=== PATIENT | male | born 1935 | race Caucasian/White ===

== ENCOUNTER 2016-12-25 15:44 | Emergency (ER) | payer OTHER ==
[~2016-12-25 15:44] MED LIST: DIAZ2TAB PO; FEXO1TAB46 PO; FINA5TAB PO; MELO7.5T5 PO
[2016-12-25 16:03] VITALS: TEMP 37.7
[2016-12-25] MEDS ORDERED: SODIUM CHLORIDE 0.9% 1000ML 1,000 ML IV STA (16:09)
[2016-12-25] MEDS ORDERED: OPTIRAY 320 IV PRN (16:15)
--- NOTE | 2016-12-25 16:16 | EMERGENCY ROOM VISIT NOTE ---
History Report prepared by Molly: Albert Fuentes Under the Supervision of: Dr. Hung Suresh M.D. First contact with patient: 15:51 Stated Complaint: STOKE SYMPTOMS @0800 / MHID History of Present Illness The patient is a 81 year old white male with a past medical history of MR and non-verbal at baseline, seizures, STEMI and BPH who presents to the ED with a cc of constant lethargy beginning last evening. The patient's history was obtained from his caregiver. Last time the patient ate was 24 hours ago. Received his flu shot yesterday. Patient walks at baseline. Positive abdominal pain, tongue hanging out, twisted bowel with difficulty moving his bowels, decreased appetite. Negative recent exposure, coughing, vomiting. Source of History: caregiver Onset: last evening Position: other (global) Quality: other (lethargy) Timing: constant Associated Symptoms: + abdominal pain, No cough, No vomiting Note: Associated symptoms: tongue hanging out, twisted bowel with difficulty moving his bowels, decreased appetite Denies: recent exposure Review of Systems See HPI for pertinent positives and negatives. A total of ten systems were reviewed and were otherwise negative. Past Medical & Surgical Medical Problems: (1) BPH (benign prostatic hyperplasia) (2) cataract surgery (3) left hernia repair (4) Mental retardation (5) Seizure (6) STEMI (ST elevation myocardial infarction) (7) urinary problems Family History Diabetes mellitus Hypertension Social History Smoking Status: Never Smoker Alcohol Use: none Drug Use: none Marital Status: single Housing Status: assisted living Occupation Status: disabled Current/Historical Medications Scheduled Amoxicillin & Pot Clavulanate (Augmentin 875-125 mg), 875 MG PO BID Amoxicillin/Clavulanate Potas (Augmentin), 17.5 ML PO BID Azithromycin (Zithromax), 250 MG PO DAILY Azithromycin (Azithromycin), 6.25 ML PO QD Carbamide Peroxide (Otic) (Debrox), 5 DROPS OT BID Diazepam (Valium), 2 MG PO BID Finasteride (Proscar), 5 MG PO DAILY Meloxicam (Mobic), 7.5 MG PO BID Metronidazole (Topical) (Metrogel), 1 DOSE TOP HS Nystatin (Topical) (Nystatin), 1 DOSE TOP BID Scheduled PRN Fexofenadine Hcl (Brittany), 180 MG PO DAILY PRN for RHINITIS Allergies Coded Allergies: No Known Allergies (Verified , 12/25/16) Physical Exam Vital Signs Date Time Temp Pulse Resp B/P (MAP) Pulse Ox O2 Delivery O2 Flow Rate FiO2 12/25/16 23:43 99 123/66 97 12/25/16 21:49 97 12/25/16 20:59 105 20 124/62 98 Room Air 12/25/16 19:12 101 19 123/56 98 Room Air 12/25/16 16:24 88 12/25/16 16:03 37.7 98 14 110/59 98 Room Air Physical Exam GENERAL: Awake, alert, well-appearing, NAD HENT: Normocephalic, atraumatic. EYES: Normal conjunctiva. Sclera non-icteric. NECK: Supple. No nuchal rigidity. FROM. RESPIRATORY: CTAB, no rhonchi, wheezing, crackles CARDIAC: RRR, no MRG ABDOMEN: Soft, Mild diffuse abdominal pain, ND, BS+ MSK: No chest wall TTP, no LE edema NEURO: GCS 11, eyes are open, moves all 4s on command, non-verbal at baseline SKIN: No rash or jaundice noted. Medical Decision & Procedures ER Provider Diagnostic Interpretation: Radiology results as stated below per my review and radiologist interpretation: HEAD CT NONCONTRAST CT DOSE: 1996.36 mGy.cm HISTORY: ?decreased activity, h/o MR TECHNIQUE: Multiaxial CT images of the head were performed without the use of intravenous contrast. Automated exposure control was utilized for this study. A dose lowering technique was utilized adhering to the principles of ALARA. Comparison: Head CT 01/31/2016. Findings: Mild mucosal thickening within the right anterior ethmoid air cells. The mastoid air cells are clear. The calvarium and skull base are intact. There is no mass, hematoma, midline shift, acute infarct. White matter hypodensity is nonspecific but suggestive of microvascular ischemic change. The ventricles and sulci demonstrate mild age-related involutional changes. Bilateral basal ganglia calcifications are again noted. Impression: No significant change compared to the prior study. No acute intracranial abnormality. Motion artifact. Electronically signed by: Charbel Dillon M.D. 12/25/2016 7:48 PM Dictated Date/Time: 12/25/2016 7:45 PM ABDOMEN 2VIEW W/PA CHEST RTN HISTORY: 81 years-old Male ABDOMINAL PAIN/GI acute generalized abdominal pain with altered mental status COMPARISON: Chest radiograph 06/14/2014 TECHNIQUE: AP view of the chest with left decubitus and supine views of the abdomen. FINDINGS: Study is limited secondary to patient positioning. Portion of the right lung apex is obscured by the patient's chin. Cardiac silhouette is mildly enlarged, unchanged. Atherosclerosis of the aorta. Patient is rotated to the right. No pneumothorax, pleural effusion or overt pulmonary edema. Mild coronary vascular congestion. Ill-defined hazy opacity of the lateral right lung base suggests airspace disease. Multiple remote rib fractures are seen on the right. Bowel gas pattern appears to be nonobstructive. No definite pneumoperitoneum. IMPRESSION: 1. Limited study secondary to patient positioning. 2. Ill-defined opacities of the lateral right lung base suspicious for pneumonia or atelectasis. 3. Nonobstructive bowel gas pattern without pneumoperitoneum. The above report was generated using voice recognition software. It may contain grammatical, syntax or spelling errors. Electronically signed by: Alejandro Davila M.D. 12/25/2016 6:31 PM Dictated Date/Time: 12/25/2016 6:27 PM ABDOMEN AND PELVIS CT WITH IV CONTRAST CT DOSE: 329.18 mGy.cm HISTORY: Generalized abdominal pain. TECHNIQUE: Multiaxial CT images of the abdomen and pelvis were performed following the use of intravenous contrast. A dose lowering technique was utilized adhering to the principles of ALARA. COMPARISON STUDY: None. FINDINGS: Mild motion artifact. The lung bases are clear. No pneumoperitoneum. No pneumatosis. Moderate thickening of the distal esophagus. A 1.2 cm hypodense lesion within the left hepatic lobe and a 7 mm hypodense lesion within the right hepatic lobe. There is also a 12 mm partially enhancing lesion within the right hepatic lobe. These are technically indeterminate on this single phase study but may represent hemangiomas. Cholecystectomy. The spleen, kidneys, and adrenal glands are unremarkable. The pancreas enhances normally. No retroperitoneal lymphadenopathy. Mild calcified plaque within the normal caliber abdominal aorta. The bladder is unremarkable. Colonic diverticulosis. No definite bowel wall thickening or obstruction. Postoperative changes within the right inguinal region suggests a prior inguinal hernia repair. The appendix is not identified. IMPRESSION: 1. Mild motion artifact. 2. No definite bowel wall thickening or obstruction. 3. No hydronephrosis. 4. Colonic diverticulosis. 5. The appendix is not identified with certainty and may be surgically absent. 6. Cholecystectomy. 7. A few hepatic lesions which are technically indeterminate but favor hemangiomas. Electronically signed by: Charbel Dillon M.D. 12/25/2016 7:56 PM Dictated Date/Time: 12/25/2016 7:48 PM Laboratory Results 12/25/16 16:48 Red Blood Count 4.01, Mean Corpuscular Volume 94.3, Mean Corpuscular Hemoglobin 31.2, Mean Corpuscular Hemoglobin Concent 33.1, Mean Platelet Volume 11.4, Neutrophils (%) (Auto) 80.8, Lymphocytes (%) (Auto) 9.5, Monocytes (%) (Auto) 9.1, Eosinophils (%) (Auto) 0.1, Basophils (%) (Auto) 0.1, Neutrophils # (Auto) 8.27, Lymphocytes # (Auto) 0.97, Monocytes # (Auto) 0.93, Eosinophils # (Auto) 0.01, Basophils # (Auto) 0.01 12/25/16 16:48 Test 12/25/16 16:48 12/25/16 17:05 White Blood Count 10.23 K/uL (4.8-10.8) Red Blood Count 4.01 M/uL (4.7-6.1) Hemoglobin 12.5 g/dL (14.0-18.0) Hematocrit 37.8 % (42-52) Mean Corpuscular Volume 94.3 fL (80-100) Mean Corpuscular Hemoglobin 31.2 pg (25-34) Mean Corpuscular Hemoglobin Concent 33.1 g/dl (32-36) Platelet Count 100 K/uL (130-400) Mean Platelet Volume 11.4 fL (7.4-10.4) Neutrophils (%) (Auto) 80.8 % Lymphocytes (%) (Auto) 9.5 % Monocytes (%) (Auto) 9.1 % Eosinophils (%) (Auto) 0.1 % Basophils (%) (Auto) 0.1 % Neutrophils # (Auto) 8.27 K/uL (1.4-6.5) Lymphocytes # (Auto) 0.97 K/uL (1.2-3.4) Monocytes # (Auto) 0.93 K/uL (0.11-0.59) Eosinophils # (Auto) 0.01 K/uL (0-0.5) Basophils # (Auto) 0.01 K/uL (0-0.2) RDW Standard Deviation 47.4 fL (36.4-46.3) RDW Coefficient of Variation 13.7 % (11.5-14.5) Immature Granulocyte % (Auto) 0.4 % Immature Granulocyte # (Auto) 0.04 K/uL (0.00-0.02) Anion Gap 8.0 mmol/L (3-11) Estimated GFR () 105.3 Estimated GFR (Non- 90.8 BUN/Creatinine Ratio 32.6 (10-20) Calcium Level 8.2 mg/dl (8.5-10.1) Total Bilirubin 1.1 mg/dl (0.2-1) Direct Bilirubin 0.2 mg/dl (0-0.2) Aspartate Amino Transf (AST/SGOT) 21 U/L (15-37) Alanine Aminotransferase (ALT/SGPT) 21 U/L (12-78) Alkaline Phosphatase 71 U/L (45-117) Total Protein 6.6 gm/dl (6.4-8.2) Albumin 3.2 gm/dl (3.4-5.0) Lipase 103 U/L (73-393) Urine Color DK YELLOW Urine Appearance CLEAR (CLEAR) Urine pH 5.5 (4.5-7.5) Urine Specific H[place]ley 1.026 (1.000-1.030) Urine Protein NEG (NEG) Urine Glucose (UA) NEG (NEG) Urine Ketones 3+ (NEG) Urine Occult Blood NEG (NEG) Urine Nitrite NEG (NEG) Urine Bilirubin NEG (NEG) Urine Urobilinogen NEG (NEG) Urine Leukocyte Esterase NEG (NEG) Urine WBC (Auto) 0 /hpf (0-5) Urine RBC (Auto) 0-4 /hpf (0-4) Urine Hyaline Casts (Auto) 1-5 /lpf (0-5) Urine Epithelial Cells (Auto) 5-10 /lpf (0-5) Urine Bacteria (Auto) NEG (NEG) Laboratory results reviewed by me Medications Administered Medications (Trade) Dose Ordered Sig/Ilia Route Start Time Stop Time Status Last Admin Dose Admin Sodium Chloride 1,000 ml @ 999 mls/hr Q1H1M STAT IV 12/25/16 16:09 12/25/16 17:09 DC 12/25/16 17:14 999 MLS/HR Ceftriaxone Sodium (Rocephin Inj) 1 gm NOW STAT IV 12/25/16 19:00 12/25/16 19:01 DC 12/25/16 19:09 1 GM Lactated Ringer's 1,000 ml @ 999 mls/hr Q1H1M STAT IV 12/25/16 21:09 12/25/16 22:09 DC 12/25/16 21:18 999 MLS/HR Azithromycin (Zithromax Tab) 500 mg NOW ONCE PO 12/25/16 21:30 12/25/16 21:31 DC 12/25/16 21:26 500 MG ED Course 1600: The patient was evaluated in room C03. A complete history and physical exam was performed. 2106: I reevaluated the patient. Discussed results and discharge instructions: the patient's caregiver verbalized understanding and agreement. The patient is ready for discharge when he receives more fluids. Medical Decision The patient is a 81 year old white male with a past medical history of MR and non-verbal at baseline, seizures, STEMI and BPH who presents to the ED with a cc of constant lethargy beginning last evening. Differential diagnoses include: metabolic, infection, hypo/hyperglycemia, electrolyte abnormalities, cardiac sources, intracerebral event, toxicologic, neurologic, abdominal pain as well as others were entertained. Patient was seen and evaluated the bedside. The branch library clerk who is with him a fair amount was concerned as he has not been as active. Patient normally eats and drinks without issue and walks. Patient is more less nonverbal but will speak words occasionally. On exam patient is a GCS of 11 and is able to move all his extremities and has no focal neuro deficit. Patient did have blood work , CT head, CT abdomen and pelvis, and plain films completed. Patient was also given fluids. Patient's chest x-ray additional questions or consolidations at the base for which she was given Rocephin. Patient white blood seen cell count of 10. Patient does have some prerenal azotemia. Patient was given fluids. I did discuss the results with the patient's caregiver. She had stated that the patient is doing much much better. Patient's tachycardia is improved. He was given additional IVF. Patient had no signs of infection is UA. Patient's CT head negative. Patient's CT the abdomen pelvis is negative acute. He did have some questionable angiomas of the liver but no other issues. Patient was able tolerate by mouth at the bedside. Given the patient has very good care at home believe the patient is suitable for outpatient treatment. Patient's tachycardia resolved. Patient does not have a very high white count. Patient does not have a surgical abdomen or surgical process within the abdomen. Patient was given antibiotics for home. All questions were answered. Patient was given strict follow-up, discharge, and return precautions. All questions were answered. Patient was deemed suitable for outpatient follow-up at this time. Patient agreed with the plan of care and was safely discharged home. Head Trauma GCS Score: 11 Medication Reconcilliation Current Medication List: was personally reviewed by me Blood Pressure Screening Patient's blood pressure: Normal blood pressure Blood pressure disposition: Did not require urgent referral Impression Primary Impression: Pneumonia Additional Impression: Generalized weakness Scribe Attestation The scribe's documentation has been prepared under my direction and personally reviewed by me in its entirety. I confirm that the note above accurately reflects all work, treatment, procedures, and medical decision making performed by me. Departure Information Dispostion Home / Self-Care Prescriptions Amoxicillin/Clavulanate Potas (AUGMENTIN) 250 Mg/5 Ml Susp 17.5 ML PO BID for 7 Days, #245 ML Prov: Hung Suresh M.D. 12/25/16 Azithromycin (Azithromycin) 100 Mg/2.5 Ml Susp 6.25 ML PO QD for 4 Days, #1 BTL Prov: Hung Suresh M.D. 12/25/16 Azithromycin (Zithromax) 250 Mg Tab 250 MG PO DAILY for 4 Days, #4 TAB Prov: Hung Suresh M.D. 12/25/16 Amoxicillin & Pot Clavulanate (Augmentin 875-125 mg) 1 Tab Tab 875 MG PO BID for 7 Days, TAB Prov: Hung Suresh M.D. 12/25/16 Referrals Malik Griffin M.D. (PCP) Forms HOME CARE DOCUMENTATION FORM, IMPORTANT VISIT INFORMATION, WORK / SCHOOL INSTRUCTIONS Patient Instructions ED Pneumonia Adult, My [facility] Additional Instructions Please return to the emergency department if you have worsening or recurrent symptoms not amenable to at-home treatment. Please call for a follow-up appointment with her primary care physician. Please take your medications as prescribed. If you have other concerns and/or complaints please feel free to also call your primary care physician's office or return the ED for further evaluation, management, and treatment. You were found to have an elevated blood pressure today (>120 sytolic or >90 diastolic). Per medicare guidelines, you need to follow up with this blood pressure screening with your Primary Care Physician (PCP). For a new PCP call [phone]. You received narcotic or benzodiazepene medication while in the emergency room today. This is an addictive medication that may cause drowziness as well as constipation. Do not drive, operate heavy machinery, or drink alcohol under the influence of this medication. You may take 600 mg Ibuprofen every 6 hours as needed for pain with food for no more than 2 consecutive days. You may take tylenol 1000 mg every 6 hours as needed for pain. You may take motrin and tylenol separately or at the same time. Take your medications as prescribed. If taking an antibiotic consider taking a probiotic and/or eating yogurt, but at the least, please take with food as it can cause upset stomach. If culture results are not available at discharge, if they are positive for concern of infection, you will be informed of the results as soon as they are available. If you were seen between 11pm and 7AM all radiology reads will be re-read by our in house staff. If any major discrepancies are discovered, you will be notified. You have been examined and treated today on an emergency basis only. This is not a substitute for, or an effort to provide, complete comprehensive medical care. It is impossible to recognize and treat all injuries or illnesses in a single emergency department visit. It is therefore important that you follow up closely with [facility], your PCP, and/or your specialist(s). Call as soon as possible for an appointment. Thank you for your time and consideration. I look forward to speaking with you again soon. Please don't hesitate to call us if you have any questions. Problem Qualifiers Primary Impression: Pneumonia Pneumonia type: due to unspecified organism Laterality: right Lung location : lower lobe of lung Qualified Codes: J18.1 - Lobar pneumonia, unspecified organism
[2016-12-25] MEDS ORDERED: NYST100033 TOP (16:41)
[2016-12-25] MEDS ORDERED: CARB1SOL8 OT (16:41)
[2016-12-25] MEDS ORDERED: METR0.7527 TOP (16:42)
[2016-12-25 17:27] LABS: URINE APPEARANCE CLEAR (CLEAR); URINE COLOR DK YELLOW; URINE NITRITE NEG (NEG); URINE PH 5.5 (4.5-7.5); URINE SPECIFIC GRAVITY 1.026 (1.000-1.030); UROBILINOGEN NEG (NEG); ZZURINE CULT IF INDIC CATH NO
[2016-12-25 17:31] LABS: MANUAL MICROSCOPIC REQUIRED? NO; REVIEW REQ? NO; URINE BILIRUBIN NEG (NEG)
[2016-12-25 17:39] LABS: BASO % 0.1 %; BASO ABS # 0.01 K/uL (0-0.2); COMPLETE YES; EOS % 0.1 %; HEMATOCRIT 37.8 % (42-52); IG% 0.4 %; LYMPH % 9.5 %; LYMPH ABS # 0.97 K/uL (1.2-3.4); MEAN CELL VOLUME 94.3 fL (80-100); MEAN CORPUSCULAR HEMOGLOBIN 31.2 pg (25-34); MEAN CORPUSCULAR HGB CONC 33.1 g/dl (32-36); MEAN PLATELET VOLUME 11.4 fL (7.4-10.4); MONO % 9.1 %; NEUT % 80.8 %; PLATELET COUNT 100 K/uL (130-400); RED BLOOD COUNT 4.01 M/uL (4.7-6.1); WHITE BLOOD COUNT 10.23 K/uL (4.8-10.8)
[2016-12-25 17:43] LABS: ALT/SGPT 21 U/L (12-78); AST/SGOT 21 U/L (15-37); BLOOD UREA NITROGEN 22 mg/dl (7-18); BUN/CREATININE RATIO 32.6 (10-20); CALCIUM 8.2 mg/dl (8.5-10.1); CARBON DIOXIDE 27 mmol/L (21-32); CHLORIDE 105 mmol/L (98-107); CREATININE 0.68 mg/dl (0.60-1.40); GLUCOSE 100 mg/dl (70-99); POTASSIUM 3.9 mmol/L (3.5-5.1); SODIUM 140 mmol/L (136-145)
[2016-12-25 17:46] LABS: ALKALINE PHOSPHATASE 71 U/L (45-117)
--- NOTE | 2016-12-25 18:33 | DIAGNOSTIC IMAGING REPORT ---
ABDOMEN 2VIEW W/PA CHEST RTN HISTORY: 81 years-old Male ABDOMINAL PAIN/GI acute generalized abdominal pain with altered mental status COMPARISON: Chest radiograph 06/14/2014 TECHNIQUE: AP view of the chest with left decubitus and supine views of the abdomen. FINDINGS: Study is limited secondary to patient positioning. Portion of the right lung apex is obscured by the patient's chin. Cardiac silhouette is mildly enlarged, unchanged. Atherosclerosis of the aorta. Patient is rotated to the right. No pneumothorax, pleural effusion or overt pulmonary edema. Mild coronary vascular congestion. Ill-defined hazy opacity of the lateral right lung base suggests airspace disease. Multiple remote rib fractures are seen on the right. Bowel gas pattern appears to be nonobstructive. No definite pneumoperitoneum. IMPRESSION: 1. Limited study secondary to patient positioning. 2. Ill-defined opacities of the lateral right lung base suspicious for pneumonia or atelectasis. 3. Nonobstructive bowel gas pattern without pneumoperitoneum. The above report was generated using voice recognition software. It may contain grammatical, syntax or spelling errors. Electronically signed by: Alejandro Davila M.D. 12/25/2016 6:31 PM Dictated Date/Time: 12/25/2016 6:27 PM
[2016-12-25] MEDS ORDERED: CEFTRIAXONE SOD INJ 1 GM ADDVIAL IV STA (19:00)
--- NOTE | 2016-12-25 19:49 | DIAGNOSTIC IMAGING REPORT ---
HEAD CT NONCONTRAST CT DOSE: 1996.36 mGy.cm HISTORY: ?decreased activity, h/o MR TECHNIQUE: Multiaxial CT images of the head were performed without the use of intravenous contrast. Automated exposure control was utilized for this study. A dose lowering technique was utilized adhering to the principles of ALARA. Comparison: Head CT 01/31/2016. Findings: Mild mucosal thickening within the right anterior ethmoid air cells. The mastoid air cells are clear. The calvarium and skull base are intact. There is no mass, hematoma, midline shift, acute infarct. White matter hypodensity is nonspecific but suggestive of microvascular ischemic change. The ventricles and sulci demonstrate mild age-related involutional changes. Bilateral basal ganglia calcifications are again noted. Impression: No significant change compared to the prior study. No acute intracranial abnormality. Motion artifact. Electronically signed by: Charbel Dillon M.D. 12/25/2016 7:48 PM Dictated Date/Time: 12/25/2016 7:45 PM
--- NOTE | 2016-12-25 19:57 | DIAGNOSTIC IMAGING REPORT ---
ABDOMEN AND PELVIS CT WITH IV CONTRAST CT DOSE: 329.18 mGy.cm HISTORY: Generalized abdominal pain. TECHNIQUE: Multiaxial CT images of the abdomen and pelvis were performed following the use of intravenous contrast. A dose lowering technique was utilized adhering to the principles of ALARA. COMPARISON STUDY: None. FINDINGS: Mild motion artifact. The lung bases are clear. No pneumoperitoneum. No pneumatosis. Moderate thickening of the distal esophagus. A 1.2 cm hypodense lesion within the left hepatic lobe and a 7 mm hypodense lesion within the right hepatic lobe. There is also a 12 mm partially enhancing lesion within the right hepatic lobe. These are technically indeterminate on this single phase study but may represent hemangiomas. Cholecystectomy. The spleen, kidneys, and adrenal glands are unremarkable. The pancreas enhances normally. No retroperitoneal lymphadenopathy. Mild calcified plaque within the normal caliber abdominal aorta. The bladder is unremarkable. Colonic diverticulosis. No definite bowel wall thickening or obstruction. Postoperative changes within the right inguinal region suggests a prior inguinal hernia repair. The appendix is not identified. IMPRESSION: 1. Mild motion artifact. 2. No definite bowel wall thickening or obstruction. 3. No hydronephrosis. 4. Colonic diverticulosis. 5. The appendix is not identified with certainty and may be surgically absent. 6. Cholecystectomy. 7. A few hepatic lesions which are technically indeterminate but favor hemangiomas. Electronically signed by: Charbel Dillon M.D. 12/25/2016 7:56 PM Dictated Date/Time: 12/25/2016 7:48 PM
[2016-12-25] MEDS ORDERED: LACTATED RINGER'S 1000ML 1,000 ML IV STA (21:09)
[2016-12-25] MEDS ORDERED: AZIT250T PO (21:18)
[2016-12-25] MEDS ORDERED: AMOX875T PO (21:18)
[2016-12-25] MEDS ORDERED: AZITHROMYCIN 250 MG TAB PO ONE (21:30)
[2016-12-25] MEDS ORDERED: [UNRECOGNIZED DRUG - CODE] PO (22:24)
[2016-12-25] MEDS ORDERED: AMOX1SUS74 PO (22:24)
[2016-12-25 23:43] VITALS: BP 123/66; PULSE 99; O2SAT 97
== END 2016-12-25 23:44 | disposition home or self-care (01) ==
LOC: EDBD 15:44 → C.EDC 15:45
DX: J18.1 Lobar pneumonia, unspecified organism (principal); R53.1 Weakness; F79 Unspecified intellectual disabilities; G40.909 Epilepsy, unspecified, not intractable, without status epilepticus; N40.0 Benign prostatic hyperplasia without lower urinary tract symptoms; R00.0 Tachycardia, unspecified; R79.89 Other specified abnormal findings of blood chemistry; I25.2 Old myocardial infarction; Z83.3 Family history of diabetes mellitus; Z82.49 Family history of ischemic heart disease and other diseases of the circulatory system

== ENCOUNTER 2016-12-27 16:41 | Emergency (ER) | payer OTHER ==
[~2016-12-27] VITALS: Ht 152.4 cm; Wt 48.8 kg
[~2016-12-27 16:41] MED LIST changes: +AMOX1SUS74 PO; +AMOX875T PO; +AZIT250T PO; +CARB1SOL8 OT; +METR0.7527 TOP; +NYST100033 TOP; +[UNRECOGNIZED DRUG - CODE] PO
[2016-12-27 16:58] VITALS: TEMP 36.7; Ht 152.4 cm; Wt 48.8 kg
--- NOTE | 2016-12-27 17:00 | EMERGENCY ROOM VISIT NOTE ---
History Report prepared by Molly: Francisco Murcia Under the Supervision of: Dr. Main Ingram M.D. First contact with patient: 16:44 Chief Complaint: FALL Stated Complaint: FALL, EYE ABRASION History of Present Illness The patient is a 81 year old male who presents to the Emergency Room for evaluation s/p fall occurring just prior to arrival. He is a resident at [facility]. Per nursing staff, the patient had an unwitnessed fall just prior to arrival. Caregivers heard the fall and found the patient laying on the ground. He appears to have hit his head with the fall. The patient is not on any blood thinners. Per caregiver, the patient hit his face on the floor during the fall. He states that the patient is on Amoxicillin and Zithromax for pneumonia diagnosed 2 days ago. He states that the patient did not seem to lose consciousness, and stood up on his own following the fall. HPI limited secondary to mental state. Tetanus status is current. Source of History: nursing staff History Limited By: other (mental state) Onset: Just prior to arrival Quality: other (fall) Timing: other (episode) Associated Symptoms: No LOC Review of Systems ROS limited secondary to mental state. Past Medical & Surgical Medical Problems: (1) BPH (benign prostatic hyperplasia) (2) cataract surgery (3) left hernia repair (4) Mental retardation (5) Seizure (6) STEMI (ST elevation myocardial infarction) (7) urinary problems Family History Diabetes mellitus Hypertension Social History Smoking Status: Never Smoker Alcohol Use: none Drug Use: none Marital Status: single Housing Status: assisted living Occupation Status: disabled Current/Historical Medications Scheduled Amoxicillin & Pot Clavulanate (Augmentin 875-125 mg), 875 MG PO BID Amoxicillin/Clavulanate Potas (Augmentin), 17.5 ML PO BID Azithromycin (Zithromax), 250 MG PO DAILY Azithromycin (Azithromycin), 6.25 ML PO QD Carbamide Peroxide (Otic) (Debrox), 5 DROPS OT BID Diazepam (Valium), 2 MG PO BID Finasteride (Proscar), 5 MG PO DAILY Meloxicam (Mobic), 7.5 MG PO BID Metronidazole (Topical) (Metrogel), 1 DOSE TOP HS Nystatin (Topical) (Nystatin), 1 DOSE TOP BID Scheduled PRN Fexofenadine Hcl (Brittany), 180 MG PO DAILY PRN for RHINITIS Allergies Coded Allergies: No Known Allergies (Verified , 12/25/16) Physical Exam Vital Signs Date Time Temp Pulse Resp B/P (MAP) Pulse Ox O2 Delivery O2 Flow Rate FiO2 12/27/16 16:58 36.7 92 18 130/69 98 Room Air 12/27/16 16:43 36.7 92 130/69 98 Room Air Physical Exam GENERAL: Patient is in no acute distress. HEENT: Contusion lateral and inferior to the right eye. No bony step off. Right globe uninjured. Abrasion superior and lateral to the right eyebrow. No laceration repair required. No scalp hematomas. Mucous membranes are moist. NECK: No stridor, no adenopathy, no meningismus, trachea is midline. Non-tender posterior cervical spine. LUNGS: Clear to auscultation bilaterally, no wheeze, no rhonchi, breath sounds equal. HEART: Without murmurs gallops or rubs, regular rate and rhythm. ABDOMEN: Soft, nontender, bowel sounds positive, no hernias, no peritonitis. EXTREMITIES: No cyanosis or edema, full range of motion of all the joints without pain or difficulty, no signs for acute trauma. NEUROLOGIC: MR noted. Moving all extremities. Acting baseline per staff member at bedside. GCS of 12 which is baseline for the patient. SKIN: No rash, no jaundice, no diaphoresis. Medical Decision & Procedures ER Provider Diagnostic Interpretation: Radiology results as stated below per my review and radiologist interpretation: CT FACIAL BONES-MXILLOFAC WITHOUT The pterygoid plates appear intact. The zygomatic arches appear intact. The globes appear intact. There is no evidence of orbital emphysema. The orbital cade and floor appear intact. The mandibular condyles appear intact. The C1 arch is developmentally incomplete both anteriorly and posteriorly. IMPRESSION: No facial fractures identified. Electronically signed by: Harshal Brock M.D. 12/27/2016 5:[address] HEAD WITHOUT CONTRAST (CT) FINDINGS: No intra or extra-axial mass lesions are visualized. There is no CT evidence of acute cortical infarction. There is no evidence of midline shift. There is no acute hemorrhage. No calvarial fractures are visualized. There are moderate white matter hypodensities likely on a small vessel basis. There is basal ganglial mineralization There is mild particular prominence, secondary to volume loss. There is no evidence of acute sinusitis IMPRESSION: No acute intracranial findings Electronically signed by: Harshal Brock M.D. 12/27/2016 5:31 PM ED Course 1644: The patient was evaluated in room A11B. A complete history and physical exam was performed. 1750: Reevaluated the patient. Discussed results and discharge instructions: he verbalized understanding and agreement. The patient is ready for discharge. Medical Decision The patient is a 81 year old male who presents to the ED for evaluation s/p fall. Differential diagnoses considered include facial fracture, skull fracture , ICH, c-spine injury, extremity fracture, and back/chest/abdominal trauma. The patient presents for evaluation after falling. The fall was unwitnessed. He is developing a bruise about the right eye and there is a subtle abrasion/ laceration to the lateral aspect of the right forehead just above the eyebrow. On exam, I could not elicit any obvious extremity trauma. As per the worker with the patient, the patient did walk without difficulty after the fall. Brain CT shows no acute bleed or mass effect. Facial CT shows no acute fracture. The patient's tetanus is current. The patient is being discharged, ice to the contusion around the eye was recommended. If things are worsening, he can be returned. The care is to be continued as before. Head Trauma GCS Score: 12 This is baseline for the patient. Medication Reconcilliation Current Medication List: was personally reviewed by me Blood Pressure Screening Patient's blood pressure: Elevated blood pressure Blood pressure disposition: Elevated BP felt to be situational Impression Primary Impression: Head trauma Additional Impressions: Fall Facial contusion Scribe Attestation The scribe's documentation has been prepared under my direction and personally reviewed by me in its entirety. I confirm that the note above accurately reflects all work, treatment, procedures, and medical decision making performed by me. Departure Information Dispostion Home / Self-Care Referrals Malik Griffin M.D. (PCP) Forms HOME CARE DOCUMENTATION FORM, IMPORTANT VISIT INFORMATION Patient Instructions My [facility] Additional Instructions all care as before keep the superficial cut/abrasion clean with soap and water watch for infection--redness, fever, drainage return if worsening head and facial CT scans today were ok Problem Qualifiers Primary Impression: Head trauma Encounter type: initial encounter Qualified Codes: S09.90XA - Unspecified injury of head, initial encounter Additional Impressions: Fall Encounter type: initial encounter Qualified Codes: W19.XXXA - Unspecified fall, initial encounter Facial contusion Encounter type: initial encounter Qualified Codes: S00.83XA - Contusion of other part of head, initial encounter
--- NOTE | 2016-12-27 17:32 | DIAGNOSTIC IMAGING REPORT ---
CT HEAD WITHOUT CONTRAST (CT) CLINICAL HISTORY: Head trauma. Head pain. COMPARISON STUDY: 12/25/2016 TECHNIQUE: Axial CT of the brain is performed from the vertex to the skull base. IV contrast was not administered for this examination. A dose lowering technique was utilized adhering to the principles of ALARA. CT DOSE: FINDINGS: No intra or extra-axial mass lesions are visualized. There is no CT evidence of acute cortical infarction. There is no evidence of midline shift. There is no acute hemorrhage. No calvarial fractures are visualized. There are moderate white matter hypodensities likely on a small vessel basis. There is basal ganglial mineralization There is mild particular prominence, secondary to volume loss. There is no evidence of acute sinusitis IMPRESSION: No acute intracranial findings Electronically signed by: Harshal Brock M.D. 12/27/2016 5:31 PM Dictated Date/Time: 12/27/2016 5:29 PM
--- NOTE | 2016-12-27 17:35 | DIAGNOSTIC IMAGING REPORT ---
CT FACIAL BONES-MXILLOFAC WITHOUT CT DOSE: 2169.02 mGy.cm CLINICAL HISTORY: Facial pain status post trauma COMPARISON STUDY: No previous studies for comparison. TECHNIQUE: Helical images were acquired in the transverse plane. The study was reviewed and analyzed on the independent 3-D workstation. A dose lowering technique was utilized adhering to the principles of ALARA. The pterygoid plates appear intact. The zygomatic arches appear intact. The globes appear intact. There is no evidence of orbital emphysema. The orbital cade and floor appear intact. The mandibular condyles appear intact. The C1 arch is developmentally incomplete both anteriorly and posteriorly. IMPRESSION: No facial fractures identified. Electronically signed by: Harshal Brock M.D. 12/27/2016 5:34 PM Dictated Date/Time: 12/27/2016 5:31 PM
[2016-12-27 18:20] VITALS: BP 130/77; PULSE 84; O2SAT 98
== END 2016-12-27 18:21 | disposition home or self-care (01) ==
LOC: EDBD 16:41 → C.EDA 16:42
DX: S00.83XA Contusion of other part of head, initial encounter (principal); W19.XXXA Unspecified fall, initial encounter; Y92.89 Other specified places as the place of occurrence of the external cause; N40.0 Benign prostatic hyperplasia without lower urinary tract symptoms; F79 Unspecified intellectual disabilities; I25.2 Old myocardial infarction; Z83.3 Family history of diabetes mellitus; Z82.49 Family history of ischemic heart disease and other diseases of the circulatory system; Z79.899 Other long term (current) drug therapy

== ENCOUNTER 2016-12-28 10:16 | Inpatient (IN) | payer OTHER ==
[~2016-12-28] VITALS: Ht 152.4 cm; Wt 47.5 kg
[2016-12-28] MEDS ORDERED: SODIUM CHLORIDE 0.9% 1000ML 1,000 ML IV STA (11:09)
--- NOTE | 2016-12-28 11:46 | DIAGNOSTIC IMAGING REPORT ---
CHEST ONE VIEW PORTABLE CLINICAL HISTORY: Weakness COMPARISON STUDY: 12/25/2016 FINDINGS: The study is significantly limited from a technical standpoint. The patient's chin overlies the right lung apex. The heart is borderline enlarged. There is no overt failure. There are right-sided rib fractures. There are hazy right midlung zone opacities.[ There is no significant pleural fluid. IMPRESSION: 1. Technically limited study 2. Borderline cardiomegaly 3. Subtle hazy right midlung zone opacities similar to the prior study 4. Right-sided rib fractures Electronically signed by: Harshal Brock M.D. 12/28/2016 11:45 AM Dictated Date/Time: 12/28/2016 11:44 AM
[2016-12-28 12:08] LABS: BASO % 0.2 %; BASO ABS # 0.01 K/uL (0-0.2); COMPLETE YES; EOS % 3.3 %; HEMATOCRIT 39.3 % (42-52); IG% 0.4 %; LYMPH % 17.9 %; LYMPH ABS # 0.99 K/uL (1.2-3.4); MEAN CELL VOLUME 95.6 fL (80-100); MEAN CORPUSCULAR HEMOGLOBIN 31.6 pg (25-34); MEAN CORPUSCULAR HGB CONC 33.1 g/dl (32-36); MEAN PLATELET VOLUME 11.9 fL (7.4-10.4); MONO % 11.1 %; NEUT % 67.1 %; PLATELET COUNT 118 K/uL (130-400); RED BLOOD COUNT 4.11 M/uL (4.7-6.1); WHITE BLOOD COUNT 5.52 K/uL (4.8-10.8)
[2016-12-28 12:23] LABS: PARTIAL THROMBOPLASTIN RATIO 1.1
[2016-12-28 12:44] LABS: ALT/SGPT 28 U/L (12-78); AST/SGOT 34 U/L (15-37); BLOOD UREA NITROGEN 18 mg/dl (7-18); BUN/CREATININE RATIO 27.9 (10-20); CALCIUM 8.1 mg/dl (8.5-10.1); CARBON DIOXIDE 32 mmol/L (21-32); CHLORIDE 107 mmol/L (98-107); CREATININE 0.64 mg/dl (0.60-1.40); GLUCOSE 96 mg/dl (70-99); MAGNESIUM 2.2 mg/dl (1.8-2.4); POTASSIUM 3.8 mmol/L (3.5-5.1); SODIUM 143 mmol/L (136-145)
[2016-12-28 12:47] LABS: ALKALINE PHOSPHATASE 68 U/L (45-117)
--- NOTE | 2016-12-28 12:48 | DIAGNOSTIC IMAGING REPORT ---
CT HEAD WITHOUT CONTRAST (CT) CLINICAL HISTORY: Head pain status post trauma COMPARISON STUDY: 12/27/2016 TECHNIQUE: Axial CT of the brain is performed from the vertex to the skull base. IV contrast was not administered for this examination. A dose lowering technique was utilized adhering to the principles of ALARA. CT DOSE: 1151.75 mGy.cm FINDINGS: No intra or extra-axial mass lesions are visualized. There is no CT evidence of acute cortical infarction. There is no evidence of midline shift. There is no acute hemorrhage. No calvarial fractures are visualized. There are patchy white matter hypodensities likely on a small vessel basis. There is mild ventricular dilatation, likely secondary to volume loss There is no evidence of acute sinusitis. There is a developmentally incomplete posterior C1 arch. IMPRESSION: No acute intracranial findings Electronically signed by: Harshal Brock M.D. 12/28/2016 12:47 PM Dictated Date/Time: 12/28/2016 12:46 PM
[2016-12-28] MEDS ORDERED: CEFTRIAXONE SOD INJ 1 GM ADDVIAL IV STA (14:31)
[2016-12-28] MEDS ORDERED: ONDANSETRON INJ 2 MG/ML 2 ML VIAL IV PRN (15:00)
[2016-12-28] MEDS ORDERED: LORAZEPAM 2 MG/ML 1 ML VIAL IV PRN ×2 (15:00)
[2016-12-28] MEDS ORDERED: ACETAMINOPHEN 325 MG TAB PO PRN (15:00)
--- NOTE | 2016-12-28 15:06 | History and Physical ---
History & Physical Date & Time of Service: Dec 28, 2016 at 14:59 Chief Complaint: FALL Primary Care Physician: Malik Griffin M.D. History of Present Illness This patient is nonverbal, returns for physician recommended intake or facility as the patient had frequent falls and his snf. Patient is severely mentally impaired and nonverbal. Over the last few days the patient initially presented with pneumonia in the right midlung was placed on antibiotics and subsequently return to the snf he return after having a fall he was evaluated returned and had additional fall and return to our facility with a right periorbital laceration which was repaired. The patient is accompanied by caregiver although she does not have much in the way of information is she typically works a different shift. There is some concern the patient is not been eating or drinking much over the last few days. I queried the caregiver if the patient could've coughing with eating subsequently this right middle lobe pneumonia could be aspiration she says she does not usually observe him he cannot tell although last evening he was coughing. I attempted to reach his power of cow puncher next of kin which is his sister Shabnam Steele and left a message on her voice machine Past Medical/Surgical History Medical Problems: (1) BPH (benign prostatic hyperplasia) Status: Chronic (2) cataract surgery Status: Resolved (3) left hernia repair Status: Resolved (4) Mental retardation Status: Chronic (5) Seizure Status: Chronic (6) STEMI (ST elevation myocardial infarction) Status: Resolved (7) urinary problems Status: Chronic Family History Diabetes mellitus Hypertension Social History Smoking Status: Never Smoker Drug Use: none Marital Status: single Occupational Status: disabled Immunizations History of Influenza Vaccine: Unknown History of Tetanus Vaccine?: Unknown History of Pneumococcal: Unknown History of Hepatitis B Vaccine: Unknown Multi-Drug Resistant Organisms History of MDRO: No Allergies Coded Allergies: No Known Allergies (Verified , 12/28/16) Home Medications Scheduled Amoxicillin/Clavulanate Potas (Augmentin), 17.5 ML PO BID Azithromycin (Azithromycin), 6.25 ML PO QD Carbamide Peroxide (Otic) (Debrox), 5 DROPS OT BID Diazepam (Valium), 2 MG PO BID Finasteride (Proscar), 5 MG PO DAILY Meloxicam (Mobic), 7.5 MG PO BID Metronidazole (Topical) (Metrogel), 1 DOSE TOP HS Nystatin (Topical) (Nystatin), 1 DOSE TOP BID Scheduled PRN Fexofenadine Hcl (Brittany), 180 MG PO DAILY PRN for RHINITIS Review of Systems Review of systems cannot be obtained as the patient is nonverbal, the caregiver with him can only state that he's been weak and not eating or drinking much and had a cough last evening Physical Exam Vital Signs Date Time Temp Pulse Resp B/P (MAP) Pulse Ox O2 Delivery O2 Flow Rate FiO2 12/28/16 14:51 76 20 115/77 97 Room Air 12/28/16 12:52 76 18 123/74 97 Room Air 12/28/16 10:25 36.5 92 18 132/71 97 Room Air General Appearance: + pertinent finding (patient is laying in a semi-Robert position reportedly usually fairly kyphotic) Head: normocephalic, + pertinent finding (there is a repaired laceration just lateral to the right supraorbital ridge is approximate 4 cm in length) Eyes: PERRL, EOMI ENT: + pertinent finding (patient refused open his mouth for evaluation) Neck: supple, no JVD Respiratory/Chest: + pertinent finding (decreased effort with exam there were some focal crackles heard around right lung) Cardiovascular: regular rate, rhythm, no murmur Abdomen/GI: normal bowel sounds, non tender, soft Extremities/Musculoskelatal: no pedal edema, normal range of motion Neurologic/Psych: alert, + disoriented Skin: normal color, warm/dry Diagnostics Laboratory Results Results Past 24 Hours Test 12/28/16 11:48 Range/Units White Blood Count 5.52 4.8-10.8 K/uL Red Blood Count 4.11 4.7-6.1 M/uL Hemoglobin 13.0 14.0-18.0 g/dL Hematocrit 39.3 42-52 % Mean Corpuscular Volume 95.6 80-100 fL Mean Corpuscular Hemoglobin 31.6 25-34 pg Mean Corpuscular Hemoglobin Concent 33.1 32-36 g/dl Platelet Count 118 130-400 K/uL Mean Platelet Volume 11.9 7.4-10.4 fL Neutrophils (%) (Auto) 67.1 % Lymphocytes (%) (Auto) 17.9 % Monocytes (%) (Auto) 11.1 % Eosinophils (%) (Auto) 3.3 % Basophils (%) (Auto) 0.2 % Neutrophils # (Auto) 3.71 1.4-6.5 K/uL Lymphocytes # (Auto) 0.99 1.2-3.4 K/uL Monocytes # (Auto) 0.61 0.11-0.59 K/uL Eosinophils # (Auto) 0.18 0-0.5 K/uL Basophils # (Auto) 0.01 0-0.2 K/uL RDW Standard Deviation 47.6 36.4-46.3 fL RDW Coefficient of Variation 13.7 11.5-14.5 % Immature Granulocyte % (Auto) 0.4 % Immature Granulocyte # (Auto) 0.02 0.00-0.02 K/uL Prothrombin Time 11.0 9.0-12.0 SECONDS Prothromb Time International Ratio 1.0 0.9-1.1 Activated Partial Thromboplast Time 27.8 21.0-31.0 SECONDS Partial Thromboplastin Ratio 1.1 Sodium Level 143 136-145 mmol/L Potassium Level 3.8 3.5-5.1 mmol/L Chloride Level 107 98-107 mmol/L Carbon Dioxide Level 32 21-32 mmol/L Anion Gap 4.0 3-11 mmol/L Blood Urea Nitrogen 18 7-18 mg/dl Creatinine 0.64 0.60-1.40 mg/dl Est Creatinine Clear Calc Drug Dose 66.2 ml/min Estimated GFR () 107.9 Estimated GFR (Non- 93.1 BUN/Creatinine Ratio 27.9 10-20 Random Glucose 96 70-99 mg/dl Calcium Level 8.1 8.5-10.1 mg/dl Magnesium Level 2.2 1.8-2.4 mg/dl Total Bilirubin 0.7 0.2-1 mg/dl Direct Bilirubin 0-0.2 mg/dl Aspartate Amino Transf (AST/SGOT) 34 15-37 U/L Alanine Aminotransferase (ALT/SGPT) 28 12-78 U/L Alkaline Phosphatase 68 45-117 U/L Troponin I < 0.015 0-0.045 ng/ml Total Protein 7.0 6.4-8.2 gm/dl Albumin 3.2 3.4-5.0 gm/dl Lipase 147 73-393 U/L Thyroid Stimulating Hormone (TSH) 3.670 0.300-4.500 uIu/ml Chemistry Specimen Hemolysis Microbiology Results 12/28/16 Blood Culture, Received Pending 12/28/16 Blood Culture, Received Pending Diagnostic Radiology Laboratory evaluation shows white blood cell count 5 his albumin is mildly low at 3.2 other (chest x-ray shows right mid lung mild infiltrate slightly improved) Normal EKG Impression Assessment and Plan 81-year-old male who is mentally impaired living in a snf presents with recent right middle lobe pneumonia and frequent falls Patient is brought to our facility as the snf cannot care for him with his frequent falls as now he said personal injury. Will have PT OT evaluation as well as speech. Concern for aspiration speech therapy calorie counts been undertaken aspiration precautions continue antibiotic therapy which will be converted to IV as there is concern for swallowing this will be Rocephin and azithromycin History of seizure disorder patient typically takes diazepam twice a day will attempt to use this with a small sip Ativan will be available for when necessary History of STEMI with clean coronaries with catheterization in 2013 maintain aspirin therapy Patient has history of BPH we'll attempt to continue his Flomax therapy if discomfort bladder scan him to be undertaken and Meza catheter may be placed next DVT for prevention will be enoxaparin Attempts to contact his POA were met with an answering machine voicemail was left my concern would be that this patient is now until likely support himself with food and drink and we may need to discuss direction of life-sustaining means his snf does have paperwork with states he is a DO NOT RESUSCITATE and this will be continued as an inpatient VTE Prophylaxis VTE Risk Assessment Done? Y/N: Yes Risk Level: Moderate
[2016-12-28 16:30] VITALS: BP 140/79; PULSE 95; TEMP 36.4; O2SAT 97; Ht 152.4 cm; Wt 47.5 kg
[2016-12-28 16:48] VITALS: BP 140/79; PULSE 95; TEMP 36.4
--- NOTE | 2016-12-28 17:45 | EMERGENCY ROOM VISIT NOTE ---
History Report prepared by Molly: Ewelina Clark Under the Supervision of: Dr. Ovidio Cevallos M.D. First contact with patient: 10:51 Chief Complaint: FALL Stated Complaint: FALL History of Present Illness The patient is a 81 year old male who presents to the Emergency Room with complaints of a sudden fall occurring today shortly prior to arrival. Per his family, the patient has had 3 or 4 falls in the last 3 days. Per his treating provider, the patient has had a loss of appetite but that this is a side-effect of one of his medications. His treating provider states that she does not know exactly what happened before his fall today, as she just started this shift. The patient fell yesterday and had imaging done here in the ED. Per his treating provider, the patient does not put his arms out or anything to help stop his fall. His treatment provider stated that he coughed up a lot 2 nights ago. Limited HPI secondary to MR. Additional history obtained by treatment provider. Source of History: treating provider History Limited By: other (MR) Onset: shortly prior to arrival Position: other (global) Quality: other (fall) Timing: other (sudden ) Review of Systems Limited ROS secondary to MR. Past Medical & Surgical Medical Problems: (1) BPH (benign prostatic hyperplasia) (2) cataract surgery (3) Declining functional status (4) left hernia repair (5) Mental retardation (6) Seizure (7) STEMI (ST elevation myocardial infarction) (8) urinary problems Family History Diabetes mellitus Hypertension Social History Smoking Status: Never Smoker Alcohol Use: none Drug Use: none Marital Status: single Housing Status: assisted living Occupation Status: disabled Current/Historical Medications Scheduled Amoxicillin/Clavulanate Potas (Augmentin), 17.5 ML PO BID Azithromycin (Azithromycin), 6.25 ML PO QD Carbamide Peroxide (Otic) (Debrox), 5 DROPS OT BID Diazepam (Valium), 2 MG PO BID Finasteride (Proscar), 5 MG PO DAILY Meloxicam (Mobic), 7.5 MG PO BID Metronidazole (Topical) (Metrogel), 1 DOSE TOP HS Nystatin (Topical) (Nystatin), 1 DOSE TOP BID Scheduled PRN Fexofenadine Hcl (Brittany), 180 MG PO DAILY PRN for RHINITIS Allergies Coded Allergies: No Known Allergies (Verified , 12/28/16) Physical Exam Vital Signs Date Time Temp Pulse Resp B/P (MAP) Pulse Ox O2 Delivery O2 Flow Rate FiO2 12/28/16 14:51 76 20 115/77 97 Room Air 12/28/16 12:52 76 18 123/74 97 Room Air 12/28/16 10:25 36.5 92 18 132/71 97 Room Air Physical Exam GENERAL: Awake, alert, well-appearing, in no distress HENT: Normocephalic. Contusion to right eye. Abrasions in right eyebrow. 2 cm laceration to right inferior eyebrow. Oropharynx unremarkable. EYES: Normal conjunctiva. Sclera non-icteric. NECK: Supple. No nuchal rigidity. FROM. No JVD. RESPIRATORY: Scattered rhonchi. CARDIAC: Systolic murmur, normal rhythm. Extremities warm and well perfused. Pulses equal. ABDOMEN: Soft, non-distended. No tenderness to palpation. No rebound or guarding. No masses. RECTAL: Deferred. MUSCULOSKELETAL: Chest examination reveals no tenderness. The back is symmetrical on inspection without obvious abnormality. There is no CVA tenderness to palpation. No joint edema. LOWER EXTREMITIES: Calves are equal size bilaterally and non-tender. No edema. No discoloration. NEURO: MR sensorium.. Non-verbal. SKIN: No rash or jaundice noted. Medical Decision & Procedures ER Provider Diagnostic Interpretation: Radiology results as stated below per my review and radiologist interpretation: CT HEAD WITHOUT CONTRAST (CT) CLINICAL HISTORY: Head pain status post trauma COMPARISON STUDY: 12/27/2016 TECHNIQUE: Axial CT of the brain is performed from the vertex to the skull base. IV contrast was not administered for this examination. A dose lowering technique was utilized adhering to the principles of ALARA. CT DOSE: 1151.75 mGy.cm FINDINGS: No intra or extra-axial mass lesions are visualized. There is no CT evidence of acute cortical infarction. There is no evidence of midline shift. There is no acute hemorrhage. No calvarial fractures are visualized. There are patchy white matter hypodensities likely on a small vessel basis. There is mild ventricular dilatation, likely secondary to volume loss There is no evidence of acute sinusitis. There is a developmentally incomplete posterior C1 arch. IMPRESSION: No acute intracranial findings Electronically signed by: Harshal Brock M.D. 12/28/2016 12:47 PM Dictated Date/Time: 12/28/2016 12:46 PM CHEST ONE VIEW PORTABLE CLINICAL HISTORY: Weakness COMPARISON STUDY: 12/25/2016 FINDINGS: The study is significantly limited from a technical standpoint. The patient's chin overlies the right lung apex. The heart is borderline enlarged. There is no overt failure. There are right-sided rib fractures. There are hazy right midlung zone opacities.[ There is no significant pleural fluid. IMPRESSION: 1. Technically limited study 2. Borderline cardiomegaly 3. Subtle hazy right midlung zone opacities similar to the prior study 4. Right-sided rib fractures Electronically signed by: Harshal Brock M.D. 12/28/2016 11:45 AM Dictated Date/Time: 12/28/2016 11:44 AM Laboratory Results 12/28/16 11:48 Red Blood Count 4.11, Mean Corpuscular Volume 95.6, Mean Corpuscular Hemoglobin 31.6, Mean Corpuscular Hemoglobin Concent 33.1, Mean Platelet Volume 11.9, Neutrophils (%) (Auto) 67.1, Lymphocytes (%) (Auto) 17.9, Monocytes (%) (Auto) 11.1, Eosinophils (%) (Auto) 3.3, Basophils (%) (Auto) 0.2, Neutrophils # (Auto ) 3.71, Lymphocytes # (Auto) 0.99, Monocytes # (Auto) 0.61, Eosinophils # (Auto ) 0.18, Basophils # (Auto) 0.01 12/28/16 11:48 Test 12/28/16 11:48 White Blood Count 5.52 K/uL (4.8-10.8) Red Blood Count 4.11 M/uL (4.7-6.1) Hemoglobin 13.0 g/dL (14.0-18.0) Hematocrit 39.3 % (42-52) Mean Corpuscular Volume 95.6 fL (80-100) Mean Corpuscular Hemoglobin 31.6 pg (25-34) Mean Corpuscular Hemoglobin Concent 33.1 g/dl (32-36) Platelet Count 118 K/uL (130-400) Mean Platelet Volume 11.9 fL (7.4-10.4) Neutrophils (%) (Auto) 67.1 % Lymphocytes (%) (Auto) 17.9 % Monocytes (%) (Auto) 11.1 % Eosinophils (%) (Auto) 3.3 % Basophils (%) (Auto) 0.2 % Neutrophils # (Auto) 3.71 K/uL (1.4-6.5) Lymphocytes # (Auto) 0.99 K/uL (1.2-3.4) Monocytes # (Auto) 0.61 K/uL (0.11-0.59) Eosinophils # (Auto) 0.18 K/uL (0-0.5) Basophils # (Auto) 0.01 K/uL (0-0.2) RDW Standard Deviation 47.6 fL (36.4-46.3) RDW Coefficient of Variation 13.7 % (11.5-14.5) Immature Granulocyte % (Auto) 0.4 % Immature Granulocyte # (Auto) 0.02 K/uL (0.00-0.02) Prothrombin Time 11.0 SECONDS (9.0-12.0) Prothromb Time International Ratio 1.0 (0.9-1.1) Activated Partial Thromboplast Time 27.8 SECONDS (21.0-31.0) Partial Thromboplastin Ratio 1.1 Anion Gap 4.0 mmol/L (3-11) Est Creatinine Clear Calc Drug Dose 66.2 ml/min Estimated GFR () 107.9 Estimated GFR (Non- 93.1 BUN/Creatinine Ratio 27.9 (10-20) Calcium Level 8.1 mg/dl (8.5-10.1) Magnesium Level 2.2 mg/dl (1.8-2.4) Total Bilirubin 0.7 mg/dl (0.2-1) Direct Bilirubin mg/dl (0-0.2) Aspartate Amino Transf (AST/SGOT) 34 U/L (15-37) Alanine Aminotransferase (ALT/SGPT) 28 U/L (12-78) Alkaline Phosphatase 68 U/L (45-117) Troponin I < 0.015 ng/ml (0-0.045) Total Protein 7.0 gm/dl (6.4-8.2) Albumin 3.2 gm/dl (3.4-5.0) Lipase 147 U/L (73-393) Thyroid Stimulating Hormone (TSH) 3.670 uIu/ml (0.300-4.500) Chemistry Specimen Hemolysis Laboratory results reviewed by me Medications Administered Medications (Trade) Dose Ordered Sig/Ilia Route Start Time Stop Time Status Last Admin Dose Admin Sodium Chloride 1,000 ml @ 125 mls/hr Q8H STAT IV 12/28/16 11:09 12/28/16 19:08 12/28/16 11:09 125 MLS/HR Ceftriaxone Sodium (Rocephin Inj) 1 gm NOW STAT IV 12/28/16 14:31 12/28/16 14:32 DC 12/28/16 16:08 1 GM Procedure Location: Right eyebrow Total length: 2 cm Complexity: Simple The skin was prepped . Copious irrigation was performed using tap water. The wound was explored for foreign bodies and none found. Examination revealed no injury to deep structures such as tendons, bone, or significant blood vessels. Debridement was not performed. The wound edges were approximated using Dermabond. Hemostasis and excellent approximation was achieved. No complications and the patient tolerated the procedure well. ECG Indication: weakness Rate (beats per minute): 84 Rhythm: sinus rhythm Findings: 1st degree AV block, no acute ischemic change, no ectopy ED Course 1105: The patient was evaluated in room A11B. A complete history and physical exam was performed. 1109: Ordered Sodium Chloride 1,000 ml @ 125 mls/hr IV. 1431: Ordered Rocephin Inj 1 gm IV. 1440: Discussed the patient's case with Dr. Nicholson. The patient will be evaluated for further treatment and disposition. 1445: Upon reexamination, the patient was resting. I discussed the test results and treatment plan with him. The patient will be evaluated for further management. Medical Decision Triage Nursing notes reviewed. The patient's presentation and history were concerning for recurrent falls and recent diagnosis of pneumonia. Etiologies such as fracture, intracranial bleeding, metabolic, infection, hypo/ hyperglycemia, electrolyte abnormalities, cardiac sources, intracerebral event, toxicologic, neurologic, as well as others were entertained. The patient was evaluated as above. He did have a laceration that required repair with Dermabond. The patient underwent imaging. He does have a persistent pneumonia. Blood work was rather unremarkable. Staff from his custodial states that he is not doing well there. He was given a dose of IV Rocephin and IV fluids. I did discuss the case with case management. Given his current situation further management in the hospital was recommended. Consultation was made with internal medicine. The patient was evaluated in the Emergency Room for further management. Medication Reconcilliation Current Medication List: was personally reviewed by me Blood Pressure Screening Patient's blood pressure: Normal blood pressure Consults Time Called: 1415 Consulting Physician: Dr. Nicholson[place] Returned Call: 1440 Discussed the patient's case. The patient will be evaluated for further treatment and disposition. Impression Primary Impression: Pneumonia Additional Impressions: Laceration of head Fall Scribe Attestation The scribe's documentation has been prepared under my direction and personally reviewed by me in its entirety. I confirm that the note above accurately reflects all work, treatment, procedures, and medical decision making performed by me. Departure Information Dispostion Being Evaluated By Hospitalist Referrals Malik Griffin M.D. (PCP) Patient Instructions My [facility] Problem Qualifiers
[2016-12-28] MEDS: ENOXAPARIN 40 MG/0.4 ML SYR SQ SCH (18:25)
[2016-12-28] MEDS: DIAZEPAM 2MG TAB PO SCH (20:31)
[2016-12-28] MEDS: NYSTATIN POWDER 15GM BTL EXT SCH (20:31)
[2016-12-28 22:13] VITALS: BP 147/72; PULSE 82; TEMP 36.4; O2SAT 96
[2016-12-29 06:03] LABS: HEMATOCRIT 35.8 % (42-52); MEAN CORPUSCULAR HEMOGLOBIN 30.8 pg (25-34); MEAN CORPUSCULAR HGB CONC 32.4 g/dl (32-36); MEAN PLATELET VOLUME 11.5 fL (7.4-10.4); PLATELET COUNT 111 K/uL (130-400); RED BLOOD COUNT 3.77 M/uL (4.7-6.1); WHITE BLOOD COUNT 5.85 K/uL (4.8-10.8)
[2016-12-29 06:28] LABS: BUN/CREATININE RATIO 24.5 (10-20); CALCIUM 7.6 mg/dl (8.5-10.1); CREATININE 0.56 mg/dl (0.60-1.40); POTASSIUM 3.5 mmol/L (3.5-5.1)
[2016-12-29 07:16] VITALS: BP 138/72; PULSE 91; TEMP 36.8; O2SAT 95
[2016-12-29] MEDS: AZITHROMYCIN IV 250 MG in DEXTROSE 5% 250ML 250 ML IV SCH (07:20)
[2016-12-29] MEDS: ASPIRIN 81 MG CHEW PO SCH (07:20)
[2016-12-29] MEDS: NYSTATIN POWDER 15GM BTL EXT SCH ×2 (07:20→20:07)
[2016-12-29] MEDS: FINASTERIDE 5 MG TAB PO SCH (07:20)
[2016-12-29] MEDS: DIAZEPAM 2MG TAB PO SCH ×2 (07:21→20:07)
[2016-12-29 08:00] VITALS: O2SAT 95
--- NOTE | 2016-12-29 10:22 | Progress Note ---
Subjective Date of Service: Dec 29, 2016. Subjective Pt evaluation today including: conversation w/ patient, physical exam, chart review, lab review, review of studies, conversation w/ senior financial consultant, review of inpatient medication list No conversational, was having some yelling and resistant to be approached when approaching him, but no anxiety no competitive, Nursing staff reported he has been doing the same, was offered BF x 2 this morning, he refused Problem List Medical Problems: (1) Facial laceration Status: Acute (2) Fall Status: Acute (3) Head trauma Status: Acute (4) Laceration of head Status: Acute (5) Neck contusion Status: Acute (6) Pneumonia Status: Acute (7) Pneumonia Status: Acute Review of Systems Constitutional: + problem reported (not able to obtained because patient nonverbal), No fever, No chills Male : + problem reported (nursing staff report he is both urine and stool incontinence, has 1 bowel movement last night) Objective Vital Signs Date Time Temp Pulse Resp B/P (MAP) Pulse Ox O2 Delivery O2 Flow Rate FiO2 12/29/16 08:00 95 Room Air 12/29/16 07:16 36.8 91 18 138/72 (94) 95 Room Air 12/28/16 23:15 Room Air 12/28/16 22:13 36.4 82 16 147/72 (97) 96 Room Air 12/28/16 16:48 36.4 95 18 140/79 (99) 12/28/16 16:30 36.4 95 18 140/79 97 Room Air 12/28/16 16:08 76 20 144/67 97 12/28/16 14:51 76 20 115/77 97 Room Air 12/28/16 12:52 76 18 123/74 97 Room Air 12/28/16 10:25 36.5 92 18 132/71 97 Room Air Physical Exam General Appearance: + thin, + pertinent finding (frail, lying on left side, resistant to be evaluated, right eye has racoon eyes, right eyebrow has laceration which is on ointment dress, no drainage no open wound, nurse reported mean left hand has some bluish, I'm not able to see because patient resistant to be examed) Respiratory/Chest: + decreased breath sounds Cardiovascular: regular rate, rhythm, no edema, no murmur Skin: + pertinent finding (otherwise skin has no rashes) Laboratory Results Last 24 Hours Test 12/28/16 11:48 12/29/16 05:12 White Blood Count 5.52 K/uL 5.85 K/uL Red Blood Count 4.11 M/uL 3.77 M/uL Hemoglobin 13.0 g/dL 11.6 g/dL Hematocrit 39.3 % 35.8 % Mean Corpuscular Volume 95.6 fL 95.0 fL Mean Corpuscular Hemoglobin 31.6 pg 30.8 pg Mean Corpuscular Hemoglobin Concent 33.1 g/dl 32.4 g/dl Platelet Count 118 K/uL 111 K/uL Mean Platelet Volume 11.9 fL 11.5 fL Neutrophils (%) (Auto) 67.1 % Lymphocytes (%) (Auto) 17.9 % Monocytes (%) (Auto) 11.1 % Eosinophils (%) (Auto) 3.3 % Basophils (%) (Auto) 0.2 % Neutrophils # (Auto) 3.71 K/uL Lymphocytes # (Auto) 0.99 K/uL Monocytes # (Auto) 0.61 K/uL Eosinophils # (Auto) 0.18 K/uL Basophils # (Auto) 0.01 K/uL RDW Standard Deviation 47.6 fL 46.7 fL RDW Coefficient of Variation 13.7 % 13.5 % Immature Granulocyte % (Auto) 0.4 % Immature Granulocyte # (Auto) 0.02 K/uL Prothrombin Time 11.0 SECONDS Prothromb Time International Ratio 1.0 Activated Partial Thromboplast Time 27.8 SECONDS Partial Thromboplastin Ratio 1.1 Sodium Level 143 mmol/L 144 mmol/L Potassium Level 3.8 mmol/L 3.5 mmol/L Chloride Level 107 mmol/L 108 mmol/L Carbon Dioxide Level 32 mmol/L 29 mmol/L Anion Gap 4.0 mmol/L 7.0 mmol/L Blood Urea Nitrogen 18 mg/dl 14 mg/dl Creatinine 0.64 mg/dl 0.56 mg/dl Est Creatinine Clear Calc Drug Dose 66.2 ml/min 71.9 ml/min Estimated GFR () 107.9 114.0 Estimated GFR (Non- 93.1 98.4 BUN/Creatinine Ratio 27.9 24.5 Random Glucose 96 mg/dl 95 mg/dl Calcium Level 8.1 mg/dl 7.6 mg/dl Magnesium Level 2.2 mg/dl Total Bilirubin 0.7 mg/dl Direct Bilirubin mg/dl Aspartate Amino Transf (AST/SGOT) 34 U/L Alanine Aminotransferase (ALT/SGPT) 28 U/L Alkaline Phosphatase 68 U/L Troponin I < 0.015 ng/ml Total Protein 7.0 gm/dl Albumin 3.2 gm/dl Lipase 147 U/L Thyroid Stimulating Hormone (TSH) 3.670 uIu/ml Chemistry Specimen Hemolysis Assessment and Plan 81-year-old male who is mentally impaired [facility] admitted on because of cannot care for him recent right middle lobe pneumonia and frequent falls Per report , patient was brought to emergency room as the penitentiary cannot care for him with his frequent falls as now he said personal injury. Possible aspiration pneumonia Evaluation was ordered And then he is on mechanical soft diet Is on Rocephin and azithromycin, I will change to oral Augmentin Report he is taking pills History of seizure disorder Will continue current care History of STEMI with clean coronaries with catheterization in 2013, stable will continue current care, continue aspirin history of BPH , stable continue Flomax DVT px : enoxaparin We'll discuss with patient's POA DO NOT RESUSCITAT Continued [facility] stay due to: multiple IV medications needed Discharge planning: home
[2016-12-29] MEDS ORDERED: CEFTRIAXONE SOD INJ 1 GM in DEXTROSE 5% ADD-VANTAGE 50ML 50 ML IV SCH (15:00)
[2016-12-29] MEDS: ENOXAPARIN 40 MG/0.4 ML SYR SQ SCH (17:09)
[2016-12-30 00:21] VITALS: BP 148/71; PULSE 95; TEMP 36.8
[2016-12-30 07:04] VITALS: BP 129/70; PULSE 89; TEMP 36.5; O2SAT 97
[2016-12-30] MEDS: DIAZEPAM 2MG TAB PO SCH ×2 (07:31→20:55)
[2016-12-30] MEDS: FINASTERIDE 5 MG TAB PO SCH (07:31)
[2016-12-30] MEDS: NYSTATIN POWDER 15GM BTL EXT SCH ×2 (07:31→20:55)
[2016-12-30] MEDS: AZITHROMYCIN IV 250 MG in DEXTROSE 5% 250ML 250 ML IV SCH (07:31)
[2016-12-30] MEDS: ASPIRIN 81 MG CHEW PO SCH (07:40)
[2016-12-30 08:00] VITALS: O2SAT 97
--- NOTE | 2016-12-30 14:33 | Progress Note ---
Subjective Date of Service: Dec 30, 2016. Subjective Pt evaluation today including: conversation w/ patient, physical exam, chart review, lab review, review of studies, conversation w/ safety and health consultant, review of inpatient medication list Looks more alert, he is awake and looking around, yelling is much louder, he got feeding, he has been wetting diaper and has bowel movement through incontinence Problem List Medical Problems: (1) Facial laceration Status: Acute (2) Fall Status: Acute (3) Head trauma Status: Acute (4) Laceration of head Status: Acute (5) Neck contusion Status: Acute (6) Pneumonia Status: Acute (7) Pneumonia Status: Acute Review of Systems Constitutional: + problem reported (no fever or chill, is limited because of none verble, not able to Good inflammation) Objective Vital Signs Date Time Temp Pulse Resp B/P (MAP) Pulse Ox O2 Delivery O2 Flow Rate FiO2 12/30/16 08:00 97 Room Air 12/30/16 07:04 36.5 89 20 129/70 (89) 97 12/30/16 00:21 36.8 95 18 148/71 (96) Room Air 12/29/16 23:35 Room Air 12/29/16 16:00 Room Air Physical Exam General Appearance: WD/WN, no apparent distress, + thin, + pertinent finding ( frail) Eyes: normal inspection, PERRL, EOMI, sclerae normal, + pertinent finding ( right eyebrow has laceration wounds in dressing) ENT: normal ENT inspection, hearing grossly normal, pharynx normal Neck: supple, no adenopathy, thyroid normal, no JVD, no carotid bruits, trachea midline Respiratory/Chest: chest non-tender, normal breath sounds, no respiratory distress, no accessory muscle use, + decreased breath sounds Cardiovascular: regular rate, rhythm, no edema, no gallop, no JVD, no murmur Abdomen: normal bowel sounds, non tender, soft, no organomegaly, no pulsatile mass Extremities: normal range of motion, normal inspection, no pedal edema, no calf tenderness, normal capillary refill, pelvis stable Neurologic/Psychiatric: no motor/sensory deficits, alert, normal mood/affect, + pertinent finding (no facial droop) Skin: normal color, warm/dry, no rash Lymphatic: no adenopathy Laboratory Results Last 24 Hours Test 12/30/16 07:39 Magnesium Level 2.3 mg/dl Assessment and Plan 81-year-old male who is mentally impaired living in a residential admitted on because of cannot care for him recent right middle lobe pneumonia and frequent falls Per report , patient was brought to emergency room as the residential cannot care for him with his frequent falls as now he said personal injury. Possible aspiration pneumonia Speech evaluation was done, Per recommendation, Continue with mechanical soft diet during hospitalization. Aspiration precautions as much as possible. Pt intolerant of much repositioning , but effort should be made. Straws are not recommended. Being on Rocephin and azithromycin, which was changed to oral Augmentin cause of possible aspiration pneumonia Report he is taking pills History of seizure disorder Will continue current care History of STEMI with clean coronaries with catheterization in 2013, stable will continue current care, continue aspirin history of BPH , stable continue Flomax DVT px : enoxaparin Possible discharge back to home tomorrow if possible, Called to sister Shabnam who is power of double end tenon operator as well, she really don't want to have any heroic methods r, she even don't want to have too much blood testing done, I discussed about the idea of POLST form , she is happy to discuss, palliative care consulted DO NOT RESUSCITAT Continued [facility] stay due to: home environment unsafe for pt Discharge planning: home
[2016-12-30 14:46] VITALS: BP 108/67; PULSE 99; O2SAT 96
--- NOTE | 2016-12-30 15:08 | Palliative Care Progress Note ---
Palliative Care Progress Note Date of Service Dec 30, 2016. Subjective Pt evaluation today including: conversation w/ family (sister, Shabnam Steele) Consult received. Spoke with patient's sister over the phone. She will be in tomorrow to complete a POLST from with me on the patient's behalf. She is his only living family member and has been his decision-maker for a long time. Shabnam reiterated on the phone to me that she really just wants the patient to be comfortable and does not want him to undergo any sort of aggressive treatment. Full consult to follow tomorrow. Thank you.
[2016-12-30] MEDS: AMOXICILLIN/CLAVULANATE TAB 875 MG TAB PO SCH (16:08)
[2016-12-30] MEDS: ENOXAPARIN 40 MG/0.4 ML SYR SQ SCH (16:10)
[2016-12-31] MEDS: DIAZEPAM 2MG TAB PO SCH (07:25)
[2016-12-31] MEDS: NYSTATIN POWDER 15GM BTL EXT SCH (07:25)
[2016-12-31] MEDS: ASPIRIN 81 MG CHEW PO SCH (07:25)
[2016-12-31] MEDS: FINASTERIDE 5 MG TAB PO SCH (07:26)
[2016-12-31] MEDS: AMOXICILLIN/CLAVULANATE TAB 875 MG TAB PO SCH (07:26)
[2016-12-31 07:43] VITALS: BP 96/59; PULSE 94; TEMP 36.5; O2SAT 94
[2016-12-31 08:00] VITALS: O2SAT 94
[2016-12-31] MEDS ORDERED: AMOX1TAB43 PO ×2 (10:01→10:02)
--- NOTE | 2016-12-31 10:02 | Discharge Instructions ---
Discharge Instructions Date of Service Dec 31, 2016. Admission Reason for Admission: Declining Functional Status Discharge Discharge Diagnosis / Problem: right middle lobe pneumonia possible from aspiration, and frequent falls Discharge Goals Goal(s): Decrease discomfort, Improve disease control, Learn about illness, Diagnostic testing, Therapeutic intervention, Prevent Disease Progression, Specific goals Activity Recommendations Activity Limitations: as noted below . Instructions / Follow-Up Instructions / Follow-Up Possible aspiration pneumonia, stable need to continue oral Augmentin for 4 days frequent falls with the right frontal head this elevation, local wound looks good, there is no stitches, Speech evaluation was done, need to have aspiration precautions as much as possible. Straws are not recommended. Fall precaution Per your sister Shabnam, wants you to be comfortable and does not want him to undergo any sort of aggressive treatment. POLST form discussed and sign, please follow-up the details - you need to follow up with your primary care physician in 1 week, - call your pcp if have chest pain, sob, palpitation, or if has any questions Current Hospital Diet Patient's current hospital diet: Regular Diet Discharge Diet Recommended Diet: Regular Diet (mechanical soft) Pending Studies Studies pending at discharge: no Medical Emergencies . Who to Call and When: Medical Emergencies: If at any time you feel your situation is an emergency, please call 911 immediately. . Non-Emergent Contact Non-Emergency issues call your: Primary Care Provider . . "Provider Documentation" section prepared by Navin Maldonado. . VTE Core Measure Inpt VTE Proph given/why not?: Unfractionated heparin SQ
[2016-12-31 10:04] VITALS: BP 96/59; PULSE 94; TEMP 36.5; O2SAT 94
[2016-12-31 10:10] LABS: HEMATOCRIT 38.9 % (42-52); MEAN CELL VOLUME 94.2 fL (80-100); MEAN CORPUSCULAR HEMOGLOBIN 31.5 pg (25-34); MEAN CORPUSCULAR HGB CONC 33.4 g/dl (32-36); MEAN PLATELET VOLUME 11.5 fL (7.4-10.4); PLATELET COUNT 125 K/uL (130-400); RED BLOOD COUNT 4.13 M/uL (4.7-6.1); WHITE BLOOD COUNT 7.63 K/uL (4.8-10.8)
[2016-12-31 11:07] LABS: BUN/CREATININE RATIO 30.7 (10-20); CREATININE 0.55 mg/dl (0.60-1.40); POTASSIUM 3.8 mmol/L (3.5-5.1)
--- NOTE | 2016-12-31 12:56 | Discharge Summary ---
Discharge Summary Date of Service Dec 31, 2016. Discharge Summary Admission Date: Dec 28, 2016 at 14:56 Discharge Date: Dec 31, 2016 Principal Diagnosis: Possible aspiration pneumonia, Problems/Secondary Diagnoses: frequent falls with the right frontal head this elevation, local wound looks good, there is no stitches, Immunizations: Have You Had Influenza Vaccine: Unknown History of Tetanus Vaccine?: Unknown History of Pneumococcal: Unknown History of Hepatitis B Vaccine: Unknown Procedures: No Consultations: Palliative care consult Medication Reconciliation New Medications: Amoxicillin & Pot Clavulanate (Amoxicillin/Clavulanate P) 1 Tab Tab 875 MG PO BIDM for 4 Days, TAB Need to continue 4 days more, do not need to fill this medicine if patient has enough pills at home Continued Medications: Carbamide Peroxide (Otic) (Debrox) 6.5 % Nuvia 5 DROPS OT BID, #15 ML Diazepam (Valium) 2 Mg Tab 2 MG PO BID, TAB Fexofenadine Hcl (Brtitany) 180 Mg Tab 180 MG PO DAILY PRN for RHINITIS, TAB Finasteride (Proscar) 5 Mg Tab 5 MG PO DAILY, TAB Meloxicam (Mobic) 7.5 Mg Tab 7.5 MG PO BID, #56 Metronidazole (Topical) (Metrogel) 0.75 % Gel 1 DOSE TOP HS Nystatin (Topical) (Nystatin) 100,000 Unit/Gm Pow 1 DOSE TOP BID Discontinued Medications: Amoxicillin/Clavulanate Potas (Augmentin) 250 Mg/5 Ml Susp 17.5 ML PO BID for 7 Days, #245 ML Azithromycin (Azithromycin) 100 Mg/2.5 Ml Susp 6.25 ML PO QD for 4 Days, #1 BTL Discharge Exam Nonverbal, however more alert, reaching to coffee cup by himself and sometimes feeding himself with coffee Review of Systems: Constitutional: + problem reported (otherwise not able to obtain because patient is nonverbal), No fever, No chills Physical Exam: General Appearance: WD/WN, no apparent distress, + thin, + pertinent finding (frail) Eyes: normal inspection, PERRL, EOMI ENT: normal ENT inspection, hearing grossly normal, TMs normal, + pertinent finding (right forehead laceration on dressing, local no stitches swelling is improving, no obvious tender) Neck: supple, no adenopathy, thyroid normal, no JVD Respiratory/Chest: chest non-tender, normal breath sounds, no respiratory distress, + decreased breath sounds Cardiovascular: regular rate, rhythm, no edema Abdomen / GI: normal bowel sounds, non tender, soft, no organomegaly Extremities: normal inspection, no calf tenderness, normal capillary refill Neurologic/Psychiatric: + pertinent finding (noneverbal, occasionally yelling, but is in baseline) Skin: normal color Hospital Course 81-year-old male who is mentally impaired living in a [facility] admitted on because of cannot care for him recent right middle lobe pneumonia and frequent falls Per report , patient was brought to emergency room as the [facility] cannot care for him with his frequent falls Possible aspiration pneumonia Speech evaluation was done, Per recommendation, Continue with mechanical soft diet during hospitalization. Aspiration precautions as much as possible. Pt intolerant of much repositioning , but effort should be made. Straws are not recommended. Being on Rocephin and azithromycin, which was changed to oral Augmentin cause of possible aspiration pneumonia Report he is taking pills Right forehead skin laceration from the fall was no stitches, local swelling is better, right Raccoon eyes from the fall is better of bluish History of seizure disorder Will continue current care History of STEMI with clean coronaries with catheterization in 2013, stable will continue current care, continue aspirin history of BPH , stable continue Flomax DVT px : enoxaparin Possible discharge back to home tomorrow if possible, Called to sister Shabnam who is power of assistant attorney general as well, she really don't want to have any heroic methods , she even don't want to have too much blood testing done, I discussed about the idea of POLST form , palliative care consulted, polst form signed, is do not resuscitation and comfort methods only DO NOT RESUSCITAT Instructions / Follow-Up Possible aspiration pneumonia, stable need to continue oral Augmentin for 4 days frequent falls with the right frontal head this elevation, local wound looks good, there is no stitches, Speech evaluation was done, need to have aspiration precautions as much as possible. Straws are not recommended. Fall precaution Per your sister Shabnam, wants you to be comfortable and does not want him to undergo any sort of aggressive treatment. POLST form discussed and sign, please follow-up the details - you need to follow up with your primary care physician in 1 week, - call your pcp if have chest pain, sob, palpitation, or if has any questions Total Time Spent: Greater than 30 minutes This includes examination of the patient, discharge planning, medication reconciliation, and communication with other providers. Discharge Instructions Please refer to the electronic Patient Visit Report (Discharge Instructions) for additional information. Additional Copies To Malik Griffin M.D.
--- NOTE | 2016-12-31 13:00 | Palliative Care Consultation ---
Consultation Date of Consultation: Dec 31, 2016. Requesting Physician: Dr. Maldonado Attending Physician: Dr. Maldonado Reason for Consultation: Goals of care History of Present Illness This 81 year old male patient with PMH severe intellectual impairment, frequent falls, BPH, seizure disorder, and PR, presented to the hospital from his residential with complaints of falls. Per record, family, and caregivers, patient has been with decreased PO intake and increased weakness. He has a RML infiltrate- possible pneumonia vs. aspiration pneumonia. He was placed on antibiotics and admitted to medical unit. Patient seen by speech therapy and recommends aspiration precautions, but patient was able to self-feed and had no overt signs or symptoms of aspiration. Patient's sister, Shabnam Steele, is patient's next of kin and his decision-maker. Shabnam has expressed her wishes for patient to just be kept comfortable and not undergo any aggressive or invasive treatment /procedures. Palliative care consulted to establish goals and complete a POLST form. I met with patient in room 403. He is not verbal, but is fully awake and alert. His caregiver, Karlie Perkins, is at bedside. She said patient is at his baseline today but is not hungry-- not wanting ice cream that she brought him. Patient is not able to participate in any meaningful conversation at this time but he is in no distress. Met with patient's sister Shabnam at this time, see plan below. Past Medical/Surgical History Medical History: as above Social History Smoking Status: Never Smoker History of Alcohol Use: No Drug Use: none Marital Status: single Occupation Status: disabled Review of Systems unable to obtain due to patient's mental status Allergies Coded Allergies: No Known Allergies (Verified , 12/28/16) Medications Current Inpatient Medications Medications (Trade) Dose Ordered Sig/Ilia Route Start Time Stop Time Status Last Admin Dose Admin Enoxaparin Sodium (Lovenox Inj) 40 mg Q24H SQ 12/28/16 17:00 01/27/17 16:59 12/30/16 16:10 40 MG Acetaminophen (Tylenol Tab) 650 mg Q4H PRN PO 12/28/16 15:00 01/27/17 14:59 Ondansetron HCl (Zofran Inj) 4 mg Q6H PRN IV 12/28/16 15:00 01/27/17 14:59 Diazepam (Valium Tab) 2 mg BID PO 12/28/16 20:00 01/27/17 20:59 12/31/16 07:25 2 MG Finasteride (Proscar Tab) 5 mg DAILY PO 12/29/16 08:00 01/28/17 08:59 12/31/16 07:26 5 MG Nystatin (Mycostatin Powder) 1 appln BID EXT 12/28/16 20:00 01/27/17 20:59 12/31/16 07:25 1 APPLN Lorazepam (Ativan Inj) 0.5 mg Q4H PRN IV 12/28/16 15:00 01/27/17 14:59 Lorazepam (Ativan Inj) 1 mg Q4H PRN IV 12/28/16 15:00 01/27/17 14:59 Aspirin (Aspirin Chew) 81 mg DAILY PO 12/29/16 08:00 01/28/17 08:59 12/31/16 07:25 81 MG Amoxicillin/ Clavulanate Potassium (Augmentin Tab) 875 mg BIDM PO 12/30/16 17:00 01/05/17 16:59 12/31/16 07:26 875 MG Physical Exam Date Time Temp Pulse Resp B/P (MAP) Pulse Ox O2 Delivery O2 Flow Rate FiO2 12/31/16 10:04 36.5 94 16 94 Room Air 12/31/16 08:00 94 Room Air 12/31/16 07:43 36.5 94 16 96/59 (71) 94 Room Air 12/31/16 00:25 Room Air 12/30/16 16:00 Room Air 12/30/16 14:46 99 18 108/67 (81) 96 Room Air General Appearance: no apparent distress, + thin ENT: hearing grossly normal Neck: supple, no JVD Respiratory: no respiratory distress, no accessory muscle use Cardiovascular: regular rate, rhythm, no edema Abdomen: non tender, soft Neurologic/Psychiatric: alert, + pertinent finding (no agitation at this time) Skin: normal color Laboratory Results Last 24 Hours Test 12/31/16 09:40 White Blood Count 7.63 K/uL Red Blood Count 4.13 M/uL Hemoglobin 13.0 g/dL Hematocrit 38.9 % Mean Corpuscular Volume 94.2 fL Mean Corpuscular Hemoglobin 31.5 pg Mean Corpuscular Hemoglobin Concent 33.4 g/dl RDW Standard Deviation 46.4 fL RDW Coefficient of Variation 13.7 % Platelet Count 125 K/uL Mean Platelet Volume 11.5 fL Assessment & Plan Problem list: Weakness/multiple falls Pneumonia- ?aspiration Aspiration risk Severe intellectual impairment- baseline Goals of care (z51.5) Palliative care recs: discussed with patient's sister Shabnam and Dr. Maldonado. -Patient is DNR/level 5. -Discussed goals with patients sister. Being that patient is severely mentally disabled and almost 82 years old, Shabnam's goal for the patient is strictly for comfort. She does not want him to have lab draws, testing, or to come back to the hospital unless absolutely necessary for comfort. -POLST form completed as follows: DNR, comfort measures only, abx with comfort as the goal, no artificial hydration/nutrition. -Plan is for patient to return to [facility]. If hospice is something they can accommodate at [facility], sister Shabnam may choose that option for her brother. She plans to meet with the residential administration when patient returns to talk about the POLST form, goals, and plan going forward. She has no concerns about the residential's ability to care for the patient. Thank you kindly for this consult. Please contact me with any further palliative care needs.
== END 2016-12-31 12:49 | disposition home or self-care (01) | DRG 178 ==
LOC: EDBD 10:16 → C.EDA 10:17 → C.4E 14:56 → ENRESERV 15:29
PROVIDERS: ADMIT Internal Medicine; ATTEND Hospitalist
DX: J69.0 Pneumonitis due to inhalation of food and vomit (principal); F72 Severe intellectual disabilities; N40.0 Benign prostatic hyperplasia without lower urinary tract symptoms; Z51.5 Encounter for palliative care; Z66 Do not resuscitate; S01.81XA Laceration without foreign body of other part of head, initial encounter; G40.909 Epilepsy, unspecified, not intractable, without status epilepticus; W19.XXXA Unspecified fall, initial encounter; I25.2 Old myocardial infarction; Z83.3 Family history of diabetes mellitus; Z82.49 Family history of ischemic heart disease and other diseases of the circulatory system

== ENCOUNTER → 2017-01-09 | Outpatient (CLI) | payer OTHER ==
[~2017-01-09] MED LIST changes: -AMOX1SUS74 PO; +AMOX1TAB43 PO; -AMOX875T PO; -AZIT250T PO; -[UNRECOGNIZED DRUG - CODE] PO
== END | disposition home or self-care (01) ==
LOC: C.LABBFT 14:12
PROVIDERS: ATTEND Internal Medicine
DX: R19.7 Diarrhea, unspecified (principal); S30.810A Abrasion of lower back and pelvis, initial encounter; X58.XXXA Exposure to other specified factors, initial encounter

== ENCOUNTER 2017-02-23 11:31 | Emergency (ER) | payer OTHER ==
[2017-02-23] MEDS ORDERED: ACET-1311 PO (12:46)
[2017-02-23] MEDS ORDERED: FLUC100T4 PO (12:46)
[2017-02-23] MEDS ORDERED: ALUM-30 PO (12:46)
[2017-02-23] MEDS ORDERED: RBTDMUDL5 PO (12:46)
[2017-02-23] MEDS ORDERED: MOML PO (12:46)
[2017-02-23] MEDS ORDERED: LOPE-5 PO (12:46)
[2017-02-23] MEDS ORDERED: KETO2SHA5 TOP (12:46)
--- NOTE | 2017-02-23 12:50 | EMERGENCY ROOM VISIT NOTE ---
History Report prepared by Molly: Francisco Murcia Under the Supervision of: Dr. Hung Suresh M.D. First contact with patient: 11:57 Chief Complaint: CHOKING Stated Complaint: CHOKING Nursing Triage Summary: Pt arrives BLS from [facility]. Caregiver was feeding patient a peanut butter sandwich and he began to choke. Caregiver reports he started coughing, "turned white and had tears coming out of his eyes." Episode lasted about 2 minutes until she pulled sandwich out of mouth. History of Present Illness The patient is a 82 year old white male with a past medical history of mental retardation who presents to the ED by EMS with a cc of an episode of choking occurring just prior to arrival. History obtained from caregiver. Patient was eating a peanut butter sandwich when he began choking. The Heimlich maneuver was attempted on the patient on scene. Caregiver states that the patient appeared white during the episode. Patient has not attempted to eat or drink since the episode. Patient is DNR level 5. HPI limited secondary to mental retardation. Source of History: caregiver History Limited By: other (Mental retardation) Onset: Just prior to arrival Quality: other (choking) Timing: other (episode) Review of Systems ROS limited secondary to mental retardation. Past Medical & Surgical Medical Problems: (1) BPH (benign prostatic hyperplasia) (2) cataract surgery (3) Declining functional status (4) left hernia repair (5) Mental retardation (6) Seizure (7) STEMI (ST elevation myocardial infarction) (8) urinary problems Family History Diabetes mellitus Hypertension Social History Smoking Status: Never Smoker Alcohol Use: none Drug Use: none Marital Status: single Housing Status: assisted living Occupation Status: disabled Current/Historical Medications Scheduled Amoxicillin/Clavulanate Potas (Augmentin 400MG/5ML), 11 ML PO BID Carbamide Peroxide (Otic) (Debrox), 5 DROPS OT BID Diazepam (Valium), 2 MG PO DAILY Fexofenadine Hcl (Brittany), 180 MG PO DAILY Finasteride (Proscar), 5 MG PO DAILY Fluconazole (Diflucan), 100 MG PO DAILY Ketoconazole (Topical) (Nizoral), 1 APPLN TOP 3XWK Loperamide Hcl (Imodium A-D), 2 MG PO UD Magnesium Hydroxide (Milk Of Magnesia), 15 ML PO WK Meloxicam (Mobic), 7.5 MG PO BID Metronidazole (Topical) (Metrogel), 1 DOSE TOP HS Scheduled PRN Acetaminophen (Tylenol), 650 MG PO Q4 PRN for FEVER, HEADACHE, ACHES, PAINS Alum & Mag Hydrox-Simethicone (Mylanta), 30 ML PO Q4 PRN for GAS Guaifenesin/Dextromethorphan (Robitussin-Dm - Substitute), 5 ML PO Q6 PRN for COUGH/CONGESTION Allergies Coded Allergies: No Known Allergies (Verified , 02/23/17) Physical Exam Vital Signs Date Time Temp Pulse Resp B/P (MAP) Pulse Ox O2 Delivery O2 Flow Rate FiO2 02/23/17 15:15 91 18 124/59 97 Room Air 02/23/17 12:55 85 20 116/53 99 Room Air 02/23/17 12:54 98 Room Air 02/23/17 11:37 97 Room Air 02/23/17 11:37 88 20 100/77 98 Room Air Physical Exam GENERAL: Awake, alert, well-appearing, NAD HENT: Normocephalic, atraumatic. EYES: Normal conjunctiva. Sclera non-icteric. NECK: Supple. No nuchal rigidity. FROM. RESPIRATORY: o rhonchi, wheezing, crackles. Coarse breath sounds throughout lungs. CARDIAC: RRR, no MRG ABDOMEN: Soft, NTND, BS+ MSK: No chest wall TTP, no LE edema. Kyphosis noted. NEURO: Awake and alert. Baseline MR noted. SKIN: No rash or jaundice noted. Medical Decision & Procedures ER Provider Diagnostic Interpretation: Radiology results as stated below per my review and radiologist interpretation: SINGLE VIEW CHEST FINDINGS: 2 AP, portable, upright chest radiographs are compared to study dated 12/28/2016. The examination is severe degraded by portable technique, patient rotation, and by the patient's head of [employer] apices. The cardiomediastinal silhouette is unremarkable. Chronic interstitial thickening is similar to previous. Airspace opacities are present at the right lung base. No large pleural effusion or pneumothorax is seen. The skeletal structures are osteopenic. There are healed right-sided rib fractures. IMPRESSION: Airspace opacities are present at the right lung base. This could present atelectasis versus pneumonia/aspiration pneumonitis. Clinical correlation will be required. Electronically signed by: Main Alcazar M.D. 02/23/2017 1:50 PM Laboratory Results 02/23/17 12:50 Red Blood Count 4.29, Mean Corpuscular Volume 95.8, Mean Corpuscular Hemoglobin 31.9, Mean Corpuscular Hemoglobin Concent 33.3, Mean Platelet Volume 12.2, Neutrophils (%) (Auto) 75.5, Lymphocytes (%) (Auto) 14.6, Monocytes (%) (Auto) 7.6, Eosinophils (%) (Auto) 1.3, Basophils (%) (Auto) 0.4, Neutrophils # (Auto) 6.25, Lymphocytes # (Auto) 1.21, Monocytes # (Auto) 0.63, Eosinophils # (Auto) 0.11, Basophils # (Auto) 0.03 02/23/17 12:50 Test 02/23/17 12:50 White Blood Count 8.28 K/uL (4.8-10.8) Red Blood Count 4.29 M/uL (4.7-6.1) Hemoglobin 13.7 g/dL (14.0-18.0) Hematocrit 41.1 % (42-52) Mean Corpuscular Volume 95.8 fL (80-100) Mean Corpuscular Hemoglobin 31.9 pg (25-34) Mean Corpuscular Hemoglobin Concent 33.3 g/dl (32-36) Platelet Count 143 K/uL (130-400) Mean Platelet Volume 12.2 fL (7.4-10.4) Neutrophils (%) (Auto) 75.5 % Lymphocytes (%) (Auto) 14.6 % Monocytes (%) (Auto) 7.6 % Eosinophils (%) (Auto) 1.3 % Basophils (%) (Auto) 0.4 % Neutrophils # (Auto) 6.25 K/uL (1.4-6.5) Lymphocytes # (Auto) 1.21 K/uL (1.2-3.4) Monocytes # (Auto) 0.63 K/uL (0.11-0.59) Eosinophils # (Auto) 0.11 K/uL (0-0.5) Basophils # (Auto) 0.03 K/uL (0-0.2) RDW Standard Deviation 47.1 fL (36.4-46.3) RDW Coefficient of Variation 13.6 % (11.5-14.5) Immature Granulocyte % (Auto) 0.6 % Immature Granulocyte # (Auto) 0.05 K/uL (0.00-0.02) Anion Gap 3.0 mmol/L (3-11) Estimated GFR () 93.6 Estimated GFR (Non- 80.8 BUN/Creatinine Ratio 20.3 (10-20) Calcium Level 8.8 mg/dl (8.5-10.1) Laboratory results reviewed by me Medications Administered Medications (Trade) Dose Ordered Sig/Ilia Route Start Time Stop Time Status Last Admin Dose Admin Amoxicillin/ Clavulanate Potassium (Augmentin Es 600 Mg/42.9mg 5 ml Susp) 875 mg NOW ONCE PO 02/23/17 15:00 02/23/17 15:01 DC 02/23/17 15:45 875 MG ECG Indication: other (choking episode) Rate (beats per minute): 91 Rhythm: sinus rhythm Findings: 1st degree AV block, other (Prolonged MD. Right axis deviation. No overt STS changes. ) ED Course 1213: The patient was evaluated in room C11B. A complete history and physical exam was performed. 1420: I spoke with the patient's only living sister (Shabnam Bee). She requested to avoid taking aggressive measures of care. She is fine with the patient receiving antibiotics, but is also okay if the patient goes without antibiotics if he is physically unable to take them. 1505: I reevaluated the patient. Discussed results and discharge instructions: his caregiver verbalized understanding and agreement. The patient is ready for discharge. Medical Decision The patient is a 82 year old white male with a past medical history of mental retardation who presents to the ED by EMS with a cc of an episode of choking occurring just prior to arrival. DDx: aspiration, choking, esophageal web, esophageal diverticula, dysphagia, CVA Patient was seen and evaluated at the bedside. Patient does have a significant past medical history of severe MR. Per the patient's caregiver he was trying to keep her which point he did have choking episode. Patient did not stop breathing or did he pass out. The provider did try to attempt, maneuver. Upon review the EMR the patient is a DO NOT RESUSCITATE and only wants things for comfort for a palliative care note. There is no want for any advanced nutrition or PEG tube. Patient does have some coarse breath sounds bilaterally. A chest x-ray was obtained along with blood work. Patient blood work was fairly unremarkable. Patient chest x-ray concerning for possible atelectasis versus right lower lobe aspiration pneumonitis. I did speak with the patient's power of compliance attorney who is his only living sister. She did state that she does not want any invasive or aggressive treatments. She is amenable to by mouth antibiotics. I did discuss that if the patient is not able to take the by mouth antibiotics if she is okay with going home without and she said yes. Patient was offered by mouth Augmentin. Patient was able tolerate it. Patient was sent this prescription to the pharmacy. Patient was deemed suitable for outpatient follow-up and treatment this time. Patient was given strict follow-up, discharge, and return precautions. All questions were answered. Patient was deemed suitable for outpatient follow-up at this time. Patient agreed with the plan of care and was safely discharged home. The chart was completed utilizing t-Art voice recognition software. Grammatical errors, random word insertions, pronoun errors, and incomplete sentences are an occasional consequence of this system due to software limitations, ambient noise, and hardware issues. Any formal questions or concerns about the content, text, or information contained within the body of this dictation should be directly addressed to the physician for clarification. Medication Reconcilliation Current Medication List: was personally reviewed by me Blood Pressure Screening Patient's blood pressure: Normal blood pressure Blood pressure disposition: Did not require urgent referral Impression Primary Impression: Aspiration pneumonitis Scribe Attestation The scribe's documentation has been prepared under my direction and personally reviewed by me in its entirety. I confirm that the note above accurately reflects all work, treatment, procedures, and medical decision making performed by me. Departure Information Dispostion Home / Self-Care Prescriptions Amoxicillin/Clavulanate Potas (AUGMENTIN 400MG/5ML) 400 Mg/5 Ml Susp 11 ML PO BID for 7 Days, #154 ML Prov: Hung Suresh M.D. 02/23/17 Referrals Malik Griffin M.D. (PCP) Patient Instructions Dysphagia Aspiration, My [facility], Pneumonia Additional Instructions Please return to the emergency department if you have worsening or recurrent symptoms not amenable to at-home treatment. Please call for a follow-up appointment with her primary care physician. Please take your medications as prescribed. If you have other concerns and/or complaints please feel free to also call your primary care physician's office or return the ED for further evaluation, management, and treatment. You may take 600 mg Ibuprofen every 6 hours as needed for pain with food for no more than 2 consecutive days. You may take tylenol 1000 mg every 6 hours as needed for pain. You may take motrin and tylenol separately or at the same time. Take your medications as prescribed. You have been examined and treated today on an emergency basis only. This is not a substitute for, or an effort to provide, complete comprehensive medical care. It is impossible to recognize and treat all injuries or illnesses in a single emergency department visit. It is therefore important that you follow up closely with [facility], your PCP, and/or your specialist(s). Call as soon as possible for an appointment. Thank you for your time and consideration. I look forward to speaking with you again soon. Please don't hesitate to call us if you have any questions.
[2017-02-23 12:54] VITALS: O2SAT 98
[2017-02-23 13:00] LABS: BASO % 0.4 %; BASO ABS # 0.03 K/uL (0-0.2); EOS % 1.3 %; EOS ABS # 0.11 K/uL (0-0.5); HEMATOCRIT 41.1 % (42-52); HEMOGLOBIN 13.7 g/dL (14.0-18.0); IG# 0.05 K/uL (0.00-0.02); LYMPH % 14.6 %; LYMPH ABS # 1.21 K/uL (1.2-3.4); MEAN CELL VOLUME 95.8 fL (80-100); MEAN CORPUSCULAR HEMOGLOBIN 31.9 pg (25-34); MEAN CORPUSCULAR HGB CONC 33.3 g/dl (32-36); MEAN PLATELET VOLUME 12.2 fL (7.4-10.4); MONO % 7.6 %; MONO ABS # 0.63 K/uL (0.11-0.59); NEUT % 75.5 %; NEUT ABS # 6.25 K/uL (1.4-6.5); PLATELET COUNT 143 K/uL (130-400); RED CELL DISTRIBUTION WIDTH CV 13.6 % (11.5-14.5); RED CELL DISTRIBUTION WIDTH SD 47.1 fL (36.4-46.3); WHITE BLOOD COUNT 8.28 K/uL (4.8-10.8)
[2017-02-23 13:23] LABS: BLOOD UREA NITROGEN 18 mg/dl (7-18); CALCIUM 8.8 mg/dl (8.5-10.1); CARBON DIOXIDE 31 mmol/L (21-32); CREATININE 0.89 mg/dl (0.60-1.40); GLUCOSE 132 mg/dl (70-99); SODIUM 137 mmol/L (136-145)
--- NOTE | 2017-02-23 13:52 | DIAGNOSTIC IMAGING REPORT ---
SINGLE VIEW CHEST CLINICAL HISTORY: Choking sensation. FINDINGS: 2 AP, portable, upright chest radiographs are compared to study dated 12/28/2016. The examination is severe degraded by portable technique, patient rotation, and by the patient's head of scarring apices. The cardiomediastinal silhouette is unremarkable. Chronic interstitial thickening is similar to previous. Airspace opacities are present at the right lung base. No large pleural effusion or pneumothorax is seen. The skeletal structures are osteopenic. There are healed right-sided rib fractures. IMPRESSION: Airspace opacities are present at the right lung base. This could present atelectasis versus pneumonia/aspiration pneumonitis. Clinical correlation will be required. Electronically signed by: Main Alcazar M.D. 02/23/2017 1:50 PM Dictated Date/Time: 02/23/2017 1:48 PM
[2017-02-23] MEDS ORDERED: AMOXICILLIN/CLAV POTAS 600 MG/42.9MG/5 ML 75 ML PO ONE ×2 (14:30→15:00)
[2017-02-23] MEDS ORDERED: AGMUDL4005 PO (14:58)
[2017-02-23 15:15] VITALS: BP 124/59; PULSE 91; O2SAT 97
== END 2017-02-23 15:40 | disposition home or self-care (01) ==
LOC: EDBD 11:31 → C.EDC 11:32
DX: J69.0 Pneumonitis due to inhalation of food and vomit (principal); F79 Unspecified intellectual disabilities; N40.0 Benign prostatic hyperplasia without lower urinary tract symptoms; I25.2 Old myocardial infarction; Z83.3 Family history of diabetes mellitus; Z82.49 Family history of ischemic heart disease and other diseases of the circulatory system; I44.0 Atrioventricular block, first degree

== ENCOUNTER 2017-06-07 21:29 | Emergency (ER) | payer OTHER ==
[~2017-06-07] VITALS: Ht 167.6 cm; Wt 51.0 kg
[~2017-06-07 21:29] MED LIST changes: +ACET-1311 PO; +ALUM-30 PO; -AMOX1TAB43 PO; +FLUC100T4 PO; +KETO2SHA5 TOP; +LOPE-5 PO; +MOML PO; -NYST100033 TOP; +RBTDMUDL5 PO
[2017-06-07 21:35] VITALS: TEMP 36.4; Ht 167.6 cm; Wt 51.0 kg
--- NOTE | 2017-06-07 22:05 | DIAGNOSTIC IMAGING REPORT ---
LEFT TIBIA AND FIBULA 2 VIEWS CLINICAL HISTORY: Fall with left leg pain. FINDINGS: AP and lateral views of the left tibia and fibula are obtained. No prior studies are available for comparison at the time of dictation. The skeletal structures are osteopenic. There is no radiographic evidence of left tibial or fibular fracture. The knee and ankle joints are grossly maintained. Mild soft tissue edema is seen in the calf. IMPRESSION: Osteopenia with no radiographic evidence of left tibial or fibular fracture. Electronically signed by: Main Alcazar M.D. 06/07/2017 10:04 PM Dictated Date/Time: 06/07/2017 10:03 PM
[2017-06-07 22:12] VITALS: O2SAT 95
[2017-06-07 22:29] LABS: BASO % 0.3 %; BASO ABS # 0.03 K/uL (0-0.2); EOS ABS # 0.19 K/uL (0-0.5); HEMATOCRIT 38.7 % (42-52); IG# 0.05 K/uL (0.00-0.02); LYMPH % 14.3 %; LYMPH ABS # 1.38 K/uL (1.2-3.4); MEAN CELL VOLUME 95.1 fL (80-100); MEAN CORPUSCULAR HEMOGLOBIN 31.9 pg (25-34); MEAN CORPUSCULAR HGB CONC 33.6 g/dl (32-36); MONO % 6.2 %; NEUT % 76.7 %; NEUT ABS # 7.41 K/uL (1.4-6.5); PLATELET COUNT 140 K/uL (130-400); RED CELL DISTRIBUTION WIDTH CV 13.7 % (11.5-14.5); RED CELL DISTRIBUTION WIDTH SD 46.9 fL (36.4-46.3); WHITE BLOOD COUNT 9.66 K/uL (4.8-10.8)
[2017-06-07] MEDS ORDERED: SODIUM CHLORIDE 0.9% 500ML 500 ML IV STA (22:31)
[2017-06-07 22:51] LABS: ALBUMIN 3.7 gm/dl (3.4-5.0); ALT/SGPT 25 U/L (12-78); AST/SGOT 28 U/L (15-37); BLOOD UREA NITROGEN 17 mg/dl (7-18); CALCIUM 8.2 mg/dl (8.5-10.1); CARBON DIOXIDE 31 mmol/L (21-32); CREATININE 0.81 mg/dl (0.60-1.40); GLUCOSE 114 mg/dl (70-99); POTASSIUM 4.3 mmol/L (3.5-5.1); SODIUM 142 mmol/L (136-145)
[2017-06-07 22:55] LABS: ALKALINE PHOSPHATASE 72 U/L (45-117); TOTAL PROTEIN 7.1 gm/dl (6.4-8.2)
[2017-06-07] MEDS ORDERED: DEXT1CAP9 PO (22:59)
[2017-06-07] MEDS ORDERED: VLM5CL PO (22:59)
[2017-06-07] MEDS ORDERED: MOML PO (22:59)
[2017-06-08] MEDS ORDERED: OPTIRAY 320 IV PRN (00:15)
--- NOTE | 2017-06-08 00:50 | EMERGENCY ROOM VISIT NOTE ---
ED Visit Note First contact with patient: 21:33 I did evaluate and examine this patient myself. I did guide management for the patient. I agree with the PA's assessment as discussed. Please see the PAs dictation for further details. I did independently review the CT scan and blood work. The patient is nonverbal. He does move all extremities as normal strength throughout his extremities. There was a hyperdensity in the right side which was thought to be calcification by the radiologist. I did look at the images myself and compared it with a prior CT and he had similar findings then. We did discuss his findings with the [facility] worker. We contacted his sister and discussed the findings with her. She affirmed that she did not wish for anything to be done at this time.
[2017-06-08 01:21] VITALS: BP 99/63; PULSE 91; O2SAT 94
--- NOTE | 2017-06-08 05:07 | EMERGENCY ROOM VISIT NOTE ---
History First contact with patient: 21:33 Chief Complaint: FALL Stated Complaint: FALL/ HEAD PAIN/ History of Present Illness The patient is a 82 year old male who presents to the Emergency Room with complaints of fall from skills facility. Patient is nonverbal and MR and unable to obtain history. History is obtained from the skills caregiver that came in with the patient. She states she saw the patient walking and he fell landing on his left side. She does not think he hit his head. She states that he hit his left side on the tub. She is unsure if he fell or tripped over something. She states that he has been falling more frequently. She states that the patient is currently at his baseline. She states that he is a DNR. She states that his sister lives in town. She states that he did not pass out and was responsive throughout the entire event. She states that he has had this abrasion to his leg prior to the fall. She denies vomiting, diarrhea, lethargy, abnormal behavior. Review of Systems Unable to obtain secondary to patient's baseline MR and being nonverbal. Past Medical/Surgical History Medical Problems: (1) BPH (benign prostatic hyperplasia) (2) cataract surgery (3) Declining functional status (4) left hernia repair (5) Mental retardation (6) Seizure (7) STEMI (ST elevation myocardial infarction) (8) urinary problems Family History Diabetes mellitus Hypertension Social History Smoking Status: Never Smoker Alcohol Use: none Drug Use: none Marital Status: single Housing Status: assisted living Occupation Status: disabled Current/Historical Medications Scheduled Carbamide Peroxide (Otic) (Debrox), 5 DROPS OT BID Diazepam (Valium), 2 MG PO DAILY Diazepam (Diazepam), 5 MG PO UD Fexofenadine Hcl (Brittany), 180 MG PO DAILY Finasteride (Proscar), 5 MG PO DAILY Fluconazole (Diflucan), 100 MG PO DAILY Ketoconazole (Topical) (Nizoral), 1 APPLN TOP 3XWK Loperamide Hcl (Imodium A-D), 2 MG PO UD Magnesium Hydroxide (Milk Of Magnesia), 15 ML PO WK Meloxicam (Mobic), 7.5 MG PO BID Metronidazole (Topical) (Metrogel), 1 DOSE TOP HS Scheduled PRN Acetaminophen (Tylenol), 650 MG PO Q4 PRN for FEVER, HEADACHE, ACHES, PAINS Alum & Mag Hydrox-Simethicone (Mylanta), 30 ML PO Q4 PRN for GAS Dextromethorphan-Phenylephrine (Vicks Dayquil Cold & Flu), 1 DOSE PO UD PRN for COLD/FLU Guaifenesin/Dextromethorphan (Robitussin-Dm - Substitute), 5 ML PO Q6 PRN for COUGH/CONGESTION Magnesium Hydroxide (Milk Of Magnesia), 30 ML PO DAILY PRN for Constipation Physical Exam Vital Signs Date Time Temp Pulse Resp B/P (MAP) Pulse Ox O2 Delivery O2 Flow Rate FiO2 06/08/17 01:21 91 20 99/63 94 Room Air 06/08/17 01:11 111 18 94/61 95 Room Air 06/08/17 00:02 112 16 104/52 95 Room Air 06/07/17 22:15 106 20 145/83 95 Room Air 06/07/17 22:12 95 Room Air 06/07/17 21:57 94 06/07/17 21:35 36.4 99 22 130/94 95 Room Air Physical Exam PHYSICAL EXAM: VITALS: Vitals are noted on the nurse's note and reviewed by myself. Vital signs mildly tachycardic GENERAL: Elderly male agitated nonverbal, in no acute distress, nondiaphoretic SKIN: Superficial abrasions to the left lower leg that do not appear infected. The rest of the skin was without obvious lacerations or abrasions. Capillary reflex less than 2 seconds. HEAD: Normocephalic atraumatic. EARS: External auditory canals clear, tympanic membranes pearly banuelos without erythema or effusion bilaterally. No hemotympanums. No arias sign. No mastoid tenderness. EYES: Pupils equal round and reactive to light and accommodation. Conjunctivae without injection, sclerae without icterus. Extraocular movements intact. NOSE: Patent, turbinates without inflammation or discharge. No sinus tenderness. No septal hematoma or bleeding. FACE: No facial bone tenderness. Full range of motion of the jaw without tenderness. MOUTH: Mucous membranes moist. Pharynx without erythema or exudate. Uvula midline. Airway patent. Tongue does not deviate. NECK: Supple without nuchal rigidity. Cervical spine is nontender. Full range of motion of the neck without tenderness. No JVD. HEART: Regular rate and rhythm LUNGS: Clear to auscultation bilaterally without wheezes, rales or rhonchi. No dullness to percussion. No retractions or accessory muscle use. Left lateral chest wall tenderness. ABDOMEN: Positive bowel sounds x 4. Normal tympanic percussion. Soft, somewhat tender to the left upper quadrant, without masses or organomegaly. No guarding or rebound tenderness. MUSCULOSKELETAL: No tenderness of the thoracic or lumbar spine. No tenderness with pelvic rocking. Minimal tenderness to the left lower leg were abrasions are present. Full range of motion without tenderness to palpation in all other extremities. Strength 5/5 throughout. Peripheral pulses 2+. NEURO: Patient was alert and at baseline per skills caregiver. No focal neurological deficits. Medical Decision & Procedures Laboratory Results 06/07/17 22:12 Red Blood Count 4.07, Mean Corpuscular Volume 95.1, Mean Corpuscular Hemoglobin 31.9, Mean Corpuscular Hemoglobin Concent 33.6, Mean Platelet Volume 12.0, Neutrophils (%) (Auto) 76.7, Lymphocytes (%) (Auto) 14.3, Monocytes (%) (Auto) 6.2, Eosinophils (%) (Auto) 2.0, Basophils (%) (Auto) 0.3, Neutrophils # (Auto) 7.41, Lymphocytes # (Auto) 1.38, Monocytes # (Auto) 0.60, Eosinophils # (Auto) 0.19, Basophils # (Auto) 0.03 06/07/17 22:12 Test 06/07/17 22:12 White Blood Count 9.66 K/uL (4.8-10.8) Red Blood Count 4.07 M/uL (4.7-6.1) Hemoglobin 13.0 g/dL (14.0-18.0) Hematocrit 38.7 % (42-52) Mean Corpuscular Volume 95.1 fL (80-100) Mean Corpuscular Hemoglobin 31.9 pg (25-34) Mean Corpuscular Hemoglobin Concent 33.6 g/dl (32-36) Platelet Count 140 K/uL (130-400) Mean Platelet Volume 12.0 fL (7.4-10.4) Neutrophils (%) (Auto) 76.7 % Lymphocytes (%) (Auto) 14.3 % Monocytes (%) (Auto) 6.2 % Eosinophils (%) (Auto) 2.0 % Basophils (%) (Auto) 0.3 % Neutrophils # (Auto) 7.41 K/uL (1.4-6.5) Lymphocytes # (Auto) 1.38 K/uL (1.2-3.4) Monocytes # (Auto) 0.60 K/uL (0.11-0.59) Eosinophils # (Auto) 0.19 K/uL (0-0.5) Basophils # (Auto) 0.03 K/uL (0-0.2) RDW Standard Deviation 46.9 fL (36.4-46.3) RDW Coefficient of Variation 13.7 % (11.5-14.5) Immature Granulocyte % (Auto) 0.5 % Immature Granulocyte # (Auto) 0.05 K/uL (0.00-0.02) Anion Gap 5.0 mmol/L (3-11) Est Creatinine Clear Calc Drug Dose 52.5 ml/min Estimated GFR () 97.3 Estimated GFR (Non- 83.9 BUN/Creatinine Ratio 21.1 (10-20) Calcium Level 8.2 mg/dl (8.5-10.1) Total Bilirubin 0.5 mg/dl (0.2-1) Direct Bilirubin 0.2 mg/dl (0-0.2) Aspartate Amino Transf (AST/SGOT) 28 U/L (15-37) Alanine Aminotransferase (ALT/SGPT) 25 U/L (12-78) Alkaline Phosphatase 72 U/L (45-117) Troponin I < 0.015 ng/ml (0-0.045) Total Protein 7.1 gm/dl (6.4-8.2) Albumin 3.7 gm/dl (3.4-5.0) Medications Administered Medications (Trade) Dose Ordered Sig/Ilia Route Start Time Stop Time Status Last Admin Dose Admin Sodium Chloride 500 ml @ 999 mls/hr Q31M STAT IV 06/07/17 22:31 06/07/17 23:01 DC 06/07/17 23:03 999 MLS/HR ED Course Prior records/ancillary studies reviewed. Triage Nursing notes reviewed. Additional history obtained from caregiver The patient's history was concerning for fall Differential diagnosis: Etiologies such as fracture, dislocation, intra-abdominal, pneumothorax, intrathoracic , intracranial, neurologic, as well as other traumatic pathologies were entertained. Physical examination findings: As above. The patients vitals were mildly tachycardic. ER treatment provided: IV Normal Saline hydration, 500 mL. Wound care by nursing Caregiver states tetanus is up-to-date On reassessment the patient felt better. Vital signs were mildly tachycardic. Diagnostic interpretation by me: A 12 lead ECG revealed no emergent pathology. Normal sinus, normal intervals, poor baseline, no acute ST-T wave changes. Rate of 101. Impression sinus tachycardia interpreted by myself The labs revealed negative troponin. No leukocytosis Mild anemia Imaging studies: CT CHEST With Contrast: No pulmonary contusion, pleural effusion or pneumothorax. No mediastinal hematoma or pneumomediastinum. No evidence of traumatic aortic injury. Multiple healed right-sided rib fractures. Limited evaluation for acute fractures due to motion artifact and orientation/ obliquity. No obvious acute fracture seen. Radiologist: Ragini Stubbs MD CT ABDOMEN & PELVIS With Contrast: No evidence of significant traumatic injury in the abdomen or pelvis. No evidence of significant visceral injury, free fluid or free air. Healed right lower rib fractures. Healed fracture of the left superior pubic ramus. No evidence of acute fracture. Probable small hiatal hernia and small amount of fluid in the visualized distal esophagus which may be related to stasis or gastroesophageal reflux disease. Correlate clinically. Additional findings: Atherosclerotic vascular disease. No abdominal aortic aneurysm. Status post cholecystectomy. Small hypodense hepatic lesion which may be cyst or hemangioma. Colonic diverticula without evidence of acute diverticulitis. Radiologist: Ragini Stubbs MD CT C SPINE: Comparison: CT dated 01/31/2016. Limited examination due to positioning and obliquity. No definite acute fracture of the cervical spine accounting for limitations of exam. Stable C1 anterior and posterior arch defects. Stable C6 vertebral body height loss anteriorly compared to prior. Radiologist: Ragini Stubbs MD CT HEAD: Comparison: CT dated 12/28/2016. Motion artifact limits examination. Small focal area of hyperdensity in the right basal ganglia measuring 4 mm ( Series 2, Image 17). This finding was probably present on prior CT although evaluation was limited due to motion and may represent calcification. Focus of acute hemorrhage considered less likely. Follow-up CT can be obtained to reassess. No additional findings to suggest acute intracranial hemorrhage or other acute intracranial traumatic injury. No evidence of skull fracture. Atrophy and chronic small vessel ischemic disease. Radiologist: Ragini Stubbs MD I spoke to the patient's sister, Shabnam, and states that he is a DNR and they do not want any invasive or extraordinary measures taken. She was informed about the head scan about the possibility of being a small intracranial bleed but this seems less likely as the patient was moving and has a old infarct to this region. She states that she would like to have him discharged back to the retirement facility. She states she would not like further testing. This appears to be consistent with fall with left lower leg abrasion and possible chest injury. Patient had possible abnormality on head CAT scan. Prior imaging was reviewed by myself and my attending and the images seen similar. Patient was acting at baseline per retirement staff. The sister does not want any further testing done. I felt this is reasonable. Paperwork for the retirement home was filled out and given back to the caregiver. They are advised to follow-up in a day or 2 with the family doctor here in the ER sooner for abnormal behavior, vomiting, worsening signs or symptoms or as needed. Patient had no other injuries noted. No other findings on CAT scans. By the evaluation outlined above emergent etiologies such as fracture, dislocation, intra-abdominal, pneumothorax, pulmonary contusion, hemothorax, as well as others were deemed relatively unlikely. The caregiver and sister informed about the findings as listed above. All questions were answered and pleased with the treatment. Return instructions were outlined and the patient was discharged in stable condition. Referral: The patient was referred to family doctor for follow-up in 2 to 3 days for a recheck of the current condition. Case reviewed with my attending The chart was completed utilizing [employer] Speech voice recognition software. Grammatical errors, random word insertions, pronoun errors, and incomplete sentences are an occassional consequence of this system due to software limitations, ambient noise, and hardware issues. Any formal questions or concerns about the content, text, or information contained within the body of this dictation should be directly addressed to the physician machine assistant for clarification. Medical Decision as above Head Trauma GCS Score: 15 Medication Reconcilliation Current Medication List: was personally reviewed by me Blood Pressure Screening Patient's blood pressure: Normal blood pressure Impression Primary Impression: Chest wall injury Additional Impressions: Fall Leg abrasion Anemia Departure Information Dispostion Home / Self-Care Condition GOOD Forms HOME CARE DOCUMENTATION FORM, IMPORTANT VISIT INFORMATION Patient Instructions My [facility], ED Abrasion Additional Instructions Acetaminophen(Tylenol) may be used for fever or pain. Use 1000mg every six hours as needed. Avoid using more than 3000mg in a 24 hour period. Rest and drink plenty of fluids as tolerated. Continue current medications. Avoid strenuous activities and anything that worsens your pain. Resume normal activities once your symptoms resolve. Return to the ER immediately for worsening or persistent chest pain, abdominal pain, vomiting, fevers, chest pains, difficulty breathing, worsening of your condition, or as needed. Follow up with your primary physician in 2-3 days for a recheck of your current condition. Problem Qualifiers Primary Impression: Chest wall injury Encounter type: initial encounter Qualified Codes: S29.9XXA - Unspecified injury of thorax, initial encounter
--- NOTE | 2017-06-08 06:41 | DIAGNOSTIC IMAGING REPORT ---
HEAD WITHOUT CONTRAST (CT) CLINICAL HISTORY: 82 years-old Male with fall, MR, nonverbal. Acute head injury status post fall TECHNIQUE: Multiple axial CT images of the head were obtained without contrast. A dose lowering technique was utilized adhering to the principles of ALARA. COMPARISON: CT head 12/28/2016, 12/25/2016, 01/31/2016 FINDINGS: No acute intracranial hemorrhage, midline shift, intracranial mass, hydrocephalus, territorial ischemia or abnormal extra-axial collection. Unchanged 4 mm focus of hyperattenuation involving the right basal ganglia on image 17 series 2 is unchanged from comparison studies compatible with area of senescent calcification. Moderate atrophy with extensive patchy areas of low-attenuation within the white matter of the cerebral hemispheres bilaterally suggesting advanced chronic microvascular ischemic changes. Motion degraded exam. The calvarium is intact. Mild mucoperiosteal thickening of the maxillary and ethmoid sinuses. Mastoid air cells and middle ear cavities appear generally clear. Soft tissues and orbits are unremarkable. IMPRESSION: 1. Motion degraded exam without acute intracranial abnormality. 2. 4 mm focus of hyperattenuation within the right basal ganglia is unchanged from multiple comparison studies compatible with senescent calcification. 3. Atrophy with chronic microvascular ischemic changes. The above report was generated using voice recognition software. It may contain grammatical, syntax or spelling errors. Electronically signed by: Alejandro Davila M.D. 06/08/2017 6:40 AM Dictated Date/Time: 06/08/2017 6:36 AM
--- NOTE | 2017-06-08 07:18 | DIAGNOSTIC IMAGING REPORT ---
ABDOMEN AND PELVIS CT WITH IV CONTRAST CT DOSE: 2226.92 mGy.cm HISTORY: Acute fall with left-sided chest pain fall, MR, nonverbal TECHNIQUE: Multiaxial CT images of the abdomen and pelvis were performed following the use of intravenous contrast. A dose lowering technique was utilized adhering to the principles of ALARA. COMPARISON STUDY: CT chest of same day, CT abdomen and pelvis 12/25/2016. FINDINGS: Evaluation of the lung bases is limited secondary to respiratory motion. Mild linear subsegmental bibasilar atelectasis and/or pleural-parenchymal scarring. 1.4 cm area of pleural thickening at the lateral basal segment right lower lobe favors area of pleural-parenchymal scarring. There is no pneumatosis or pneumoperitoneum. The study is limited secondary to patient positioning and motion. Imaged inferior cardiac chambers are mildly enlarged. Coronary arterial calcifications. 1.3 cm left hepatic lobe lesion and 7 m right hepatic lobe lesion as seen on images 81 and 99 of series 15 appear unchanged from comparison study and may reflect hemangiomas. No new hepatic mass lesions identified. No intrahepatic biliary ductal dilation. Prior cholecystectomy. Spleen, pancreas and adrenal glands are within normal limits. Mild cortical scarring of the inferior pole left kidney. 4 mm low attenuating lesion of the inferior pole right kidney is too small to characterize however suggests renal cyst. No obstructing renal calculi or hydronephrosis. Ureters and bladder are unremarkable. Prostate appears mildly enlarged. Moderate to extensive calcification of the abdominal aorta without aneurysm. No bulky adenopathy. Prominent periaortic lymph nodes level of the kidneys and the left measure up to 7 mm in short axis, unchanged and possibly reactive. Fluid is noted within the distal esophagus with small sliding-type hiatal hernia. There is no bowel obstruction or focal bowel wall thickening identified. Colonic diverticulosis without diverticulitis. Appendix is not seen and may be surgically absent. Mildly prominent bilateral internal lymph nodes are seen measuring up to 7-8 mm in short axis which appear unchanged from comparison. Remote appearing fracture of the left superior pubic ramus. Dystrophic calcifications at the bilateral hamstring attachment sites the ischial tuberosities. Healed remote lower right-sided rib fractures. IMPRESSION: 1. No acute intra-abdominal or intrapelvic abnormality identified. 2. Healed remote lower right-sided rib fractures and healed remote left superior pubic ramus fracture without acute fracture identified. 3. Prior cholecystectomy. Appendix is not seen and may also be surgically absent. 4. Colonic diverticulosis without diverticulitis. 5. Small sliding-type hiatal hernia with fluid in the distal esophagus suggesting reflux. 6. Additional findings as above. Electronically signed by: Alejandro Davila M.D. 06/08/2017 7:16 AM Dictated Date/Time: 06/08/2017 7:07 AM
--- NOTE | 2017-06-08 07:23 | DIAGNOSTIC IMAGING REPORT ---
CT OF THE CHEST WITH IV CONTRAST CLINICAL HISTORY: Fall. Left-sided chest trauma. COMPARISON STUDY: Chest radiograph February 23, 2017. TECHNIQUE: Following IV administration of 94 mL of [id number]-320, helical axial images of the chest were obtained. Sagittal and coronal reconstructions were viewed as well as maximal intensity projections on an independent 3-D workstation. A dose lowering technique was utilized adhering to the principles of ALARA. FINDINGS: There is no evidence of traumatic injury to the thoracic aorta. A small hiatal hernia is noted. No pneumothorax or pulmonary contusion is noted. No acute rib fracture is identified although sensitivity is diminished given difficulty positioning and mild motion artifact. The abdomen and pelvis will be reported separately. Subpleural right lower lobe opacity favors atelectasis or scarring. IMPRESSION: 1. No acute traumatic findings within the chest. 2. No definite acute rib fracture identified although sensitivity diminished given motion artifact and difficulty positioning. 3. Multiple old right-sided rib fractures. 4. Small hiatal hernia. Electronically signed by: Dewayne Hickman M.D. 06/08/2017 7:22 AM Dictated Date/Time: 06/08/2017 7:13 AM
--- NOTE | 2017-06-08 07:34 | DIAGNOSTIC IMAGING REPORT ---
CERVICAL SPINE W/O CLINICAL HISTORY: 82 years-old Male presenting with fall, MR, nonverbal. TECHNIQUE: Multidetector CT of the cervical spine was performed without the use of intravenous contrast. IV contrast: None. A dose lowering technique was used consistent with the principles of ALARA (as low as reasonably achievable). COMPARISON: 01/31/2016. CT DOSE (mGy.cm): The estimated cumulative dose is 2226.[address] scans. FINDINGS: Yoga Coordinator topogram: Suboptimal positioning. Suboptimal positioning limits evaluation. Impacted cerumen noted in the bilateral external auditory canals through the skull base is intact. Debris noted in the nasopharynx. 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 Multilevel degenerative changes with osseous neural foraminal narrowing secondary to uncovertebral hypertrophy and facet arthropathy on the left at C3-4 and bilaterally at C5-6 and C6-7. Exaggerated cervical lordosis. No gross evidence of acute fracture or subluxation. Redemonstration of the anterior wedging deformity of C6. Extensive anterior osteophytosis at C5-6 and C6-7 consistent with chronic C6 deformity. Vacuum disc phenomenon noted at these levels. Milder wedging deformities of the upper thoracic vertebral bodies as noted on prior exam. Lung apices clear. Paraspinal soft tissues within normal limits allowing for noncontrast technique. IMPRESSION: Limited evaluation secondary to suboptimal positioning. Allowing for this, no acute osseous injury. Redemonstration of the chronic compression deformity of C6. Multilevel degenerative changes. Electronically signed by: Demarco Mcgraw M.D. 06/08/2017 7:33 AM Dictated Date/Time: 06/08/2017 6:59 AM
== END 2017-06-08 01:21 | disposition home or self-care (01) ==
LOC: EDBD 21:29 → C.EDC 21:29
DX: S29.9XXA Unspecified injury of thorax, initial encounter (principal); S80.812A Abrasion, left lower leg, initial encounter; D64.9 Anemia, unspecified; W18.39XA Other fall on same level, initial encounter; W22.09XA Striking against other stationary object, initial encounter; Y93.01 Activity, walking, marching and hiking; Y99.8 Other external cause status; Y92.89 Other specified places as the place of occurrence of the external cause; N40.0 Benign prostatic hyperplasia without lower urinary tract symptoms; F79 Unspecified intellectual disabilities; I25.2 Old myocardial infarction; Z86.69 Personal history of other diseases of the nervous system and sense organs; Z98.49 Cataract extraction status, unspecified eye; Z83.3 Family history of diabetes mellitus; Z82.49 Family history of ischemic heart disease and other diseases of the circulatory system; Z79.899 Other long term (current) drug therapy

== ENCOUNTER 2017-08-26 10:11 | Inpatient (IN) | payer OTHER ==
[~2017-08-26] VITALS: Ht 152.4 cm; Wt 45.9 kg
[~2017-08-26 10:11] MED LIST changes: +DEXT1CAP9 PO; +VLM5CL PO
[2017-08-26] MEDS ORDERED: SODIUM CHLORIDE 0.9% 1000ML 1,000 ML IV STA ×2 (10:29→12:14)
--- NOTE | 2017-08-26 10:56 | EMERGENCY ROOM VISIT NOTE ---
History Report prepared by Molly: Richard Byrd Under the Supervision of: Dr. Babar Beck M.D. First contact with patient: 10:12 Stated Complaint: AMS History of Present Illness The patient is an 82 year old male who presents to the Emergency Room with constant altered mental status beginning this morning. EMS states that the patient was difficult to wake up this morning, but a staff member was able to wake him up enough to give him medications, which included Valium. After this, the patient would not wake up. EMS states that the patient is nonverbal to minimally verbal at baseline, and they were concerned today that he would not get out of bed because the patient usually has a routine of standing up and walking around by this time of the morning. The patient was found to have an axillary temperature of 36.6 upon arrival. EMS states that the patient does not have a history of infection. Source of History: EMS History Limited By: AMS Onset: this morning Position: other (global) Quality: other (AMS) Timing: constant Review of Systems See HPI for pertinent positives and negatives. A total of ten systems were reviewed and were otherwise negative. Past Medical & Surgical Medical Problems: (1) Aspiration pneumonia (2) BPH (benign prostatic hyperplasia) (3) cataract surgery (4) Declining functional status (5) left hernia repair (6) Mental retardation (7) Seizure (8) STEMI (ST elevation myocardial infarction) (9) urinary problems Family History Diabetes mellitus Hypertension Social History Smoking Status: Never Smoker Alcohol Use: none Drug Use: none Marital Status: single Housing Status: assisted living Occupation Status: disabled Current/Historical Medications Scheduled Carbamide Peroxide (Otic) (Debrox), 5 DROPS OT BID Clotrimazole (Clotrimazole), 1 APPLN TOP HS Diazepam (Valium), 2 MG PO BID Diazepam (Diazepam), 5 MG PO UD Finasteride (Proscar), 5 MG PO QAM Ketoconazole (Topical) (Nizoral), 1 APPLN TOP 3XWK Loperamide Hcl (Imodium A-D), 2 MG PO UD Magnesium Hydroxide (Milk Of Magnesia), 15 ML PO WK Meloxicam (Mobic), 7.5 MG PO BID Metronidazole (Topical) (Metrogel), 1 DOSE TOP HS Nystatin (Topical) (Nystatin), 1 DOSE TOP BID [Senokot Liquid], 1 DOSE PO QAM Scheduled PRN Acetaminophen (Tylenol), 650 MG PO Q4 PRN for FEVER, HEADACHE, ACHES, PAINS Alum & Mag Hydrox-Simethicone (Mylanta), 30 ML PO Q4 PRN for GAS Dextromethorphan-Phenylephrine (Vicks Dayquil Cold & Flu), 1 DOSE PO UD PRN for COLD/FLU Fexofenadine Hcl (Brittany), 180 MG PO DAILY PRN for Allergic Reaction Guaifenesin/Dextromethorphan (Robitussin-Dm - Substitute), 5 ML PO Q6 PRN for COUGH/CONGESTION Magnesium Hydroxide (Milk Of Magnesia), 30 ML PO DAILY PRN for Constipation Allergies Coded Allergies: No Known Allergies (Verified , 08/26/17) Physical Exam Vital Signs Date Time Temp Pulse Resp B/P (MAP) Pulse Ox O2 Delivery O2 Flow Rate FiO2 08/26/17 17:45 37.1 98 20 113/49 94 08/26/17 17:17 97 08/26/17 15:49 104 23 99/44 95 Room Air 08/26/17 14:03 104 18 101/57 94 Room Air 08/26/17 13:11 105 08/26/17 12:06 114 20 92/60 94 Room Air 08/26/17 10:29 111 08/26/17 10:22 36.6 113 18 120/58 94 Room Air Physical Exam GENERAL: Awake, alert, fatigued, in no distress HENT: Normocephalic, atraumatic. Oropharynx unremarkable. Dry mucous membranes. EYES: Normal conjunctiva. Sclera non-icteric. NECK: Supple. No nuchal rigidity. FROM. No JVD. RESPIRATORY: Clear to auscultation. CARDIAC: Tachycardic rate, normal rhythm. Extremities warm and well perfused. Pulses equal. ABDOMEN: Soft, non-distended. No tenderness to palpation. No rebound or guarding. No masses. RECTAL: Deferred. MUSCULOSKELETAL: Chest examination reveals no tenderness. The back is symmetrical on inspection without obvious abnormality. There is no CVA tenderness to palpation. No joint edema. LOWER EXTREMITIES: Calves are equal size bilaterally and non-tender. No edema. No discoloration. NEURO: Normal sensorium. No sensory or motor deficits noted. Moving all extremities. Minimally verbal at his baseline. SKIN: No rash or jaundice noted. Medical Decision & Procedures ER Provider Diagnostic Interpretation: Radiology results as stated below per my review and radiologist interpretation: KUB CLINICAL HISTORY: Constipation. COMPARISON STUDY: CT of the abdomen and pelvis June 07, 2017. FINDINGS: The bowel gas pattern is normal. Patient is rotated. There is a moderate amount stool within the colon and rectum. No calcifications are identified within the abdomen or pelvis. IMPRESSION: 1. Moderate amount of stool within the colon and rectum. 2. No evidence for a bowel obstruction. Electronically signed by: Dewayne Hickman M.D. 08/26/2017 12:33 PM CHEST ONE VIEW PORTABLE HISTORY: 82 years-old Male ABDOMINAL PAIN/GI acute generalized abdominal pain COMPARISON: Chest CT 06/07/2017, chest radiograph 02/23/2017 TECHNIQUE: Portable AP view of the chest FINDINGS: Study is limited secondary to patient rotation to the right. Cardiac silhouette is enlarged. No pneumothorax or pleural effusion. Multifocal alveolar opacities throughout the right lung are noted, probably within a peripheral distribution. Additionally, there is ill-defined left basilar densities present. Lungs appear mildly hyperinflated. Degenerative changes of the shoulders and spine. IMPRESSION: 1. Multifocal alveolar opacities about the right lung suggest multifocal pneumonia or aspiration pneumonitis. 2. Subsegmental left basilar opacities favor atelectasis. 3. Cardiomegaly. The above report was generated using voice recognition software. It may contain grammatical, syntax or spelling errors. Electronically signed by: Alejandro Davila M.D. 08/26/2017 11:16 AM HEAD WITHOUT CONTRAST (CT) CLINICAL HISTORY: 82 years-old Male presenting with ams. TECHNIQUE: Multidetector CT imaging of the head was performed without the use of intravenous contrast. IV contrast: None. A dose lowering technique was used consistent with the principles of ALARA (as low as reasonably achievable). COMPARISON: 06/07/2017. CT DOSE (mGy.cm): The estimated cumulative dose is 1683.20 mGycm. FINDINGS: Caster Helper topogram: Unremarkable. Proportional ventricular and sulcal prominence, likely age-related parenchymal volume loss. Significant calcifications in the globus pallidus. Periventricular and subcortical white matter hypoattenuation, nonspecific but likely indicative of chronic small vessel ischemic change. No mass effect or midline shift. No hemorrhage or acute territorial infarct. No extra-axial fluid collection. Paranasal sinuses and mastoid air cells clear. Calvarium intact. Intracranial atherosclerosis noted. 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 IMPRESSION: 1. Chronic small vessel ischemic change. No acute intracranial abnormality. Electronically signed by: Demarco Mcgraw M.D. 08/26/2017 11:17 AM Laboratory Results 08/26/17 11:24 Red Blood Count 4.17, Mean Corpuscular Volume 95.2, Mean Corpuscular Hemoglobin 31.7, Mean Corpuscular Hemoglobin Concent 33.2, Mean Platelet Volume 12.1, Neutrophils (%) (Auto) 87.4, Lymphocytes (%) (Auto) 3.0, Monocytes (%) (Auto) 9.0, Eosinophils (%) (Auto) 0.1, Basophils (%) (Auto) 0.1, Neutrophils # (Auto) 13.35, Lymphocytes # (Auto) 0.46, Monocytes # (Auto) 1.38, Eosinophils # (Auto) 0.02, Basophils # (Auto) 0.01 08/26/17 11:24 Test 08/26/17 10:40 08/26/17 11:24 Urine Color DK YELLOW Urine Appearance CLEAR (CLEAR) Urine pH 8.0 (4.5-7.5) Urine Specific [place] 1.025 (1.000-1.030) Urine Protein NEG (NEG) Urine Glucose (UA) NEG (NEG) Urine Ketones NEG (NEG) Urine Occult Blood NEG (NEG) Urine Nitrite NEG (NEG) Urine Bilirubin NEG (NEG) Urine Urobilinogen NEG (NEG) Urine Leukocyte Esterase TRACE (NEG) Urine WBC (Auto) 1-5 /hpf (0-5) Urine RBC (Auto) 0-4 /hpf (0-4) Urine Hyaline Casts (Auto) 1-5 /lpf (0-5) Urine Epithelial Cells (Auto) 20-30 /lpf (0-5) Urine Bacteria (Auto) NEG (NEG) White Blood Count 15.28 K/uL (4.8-10.8) Red Blood Count 4.17 M/uL (4.7-6.1) Hemoglobin 13.2 g/dL (14.0-18.0) Hematocrit 39.7 % (42-52) Mean Corpuscular Volume 95.2 fL (80-100) Mean Corpuscular Hemoglobin 31.7 pg (25-34) Mean Corpuscular Hemoglobin Concent 33.2 g/dl (32-36) Platelet Count 116 K/uL (130-400) Mean Platelet Volume 12.1 fL (7.4-10.4) Neutrophils (%) (Auto) 87.4 % Lymphocytes (%) (Auto) 3.0 % Monocytes (%) (Auto) 9.0 % Eosinophils (%) (Auto) 0.1 % Basophils (%) (Auto) 0.1 % Neutrophils # (Auto) 13.35 K/uL (1.4-6.5) Lymphocytes # (Auto) 0.46 K/uL (1.2-3.4) Monocytes # (Auto) 1.38 K/uL (0.11-0.59) Eosinophils # (Auto) 0.02 K/uL (0-0.5) Basophils # (Auto) 0.01 K/uL (0-0.2) RDW Standard Deviation 46.3 fL (36.4-46.3) RDW Coefficient of Variation 13.4 % (11.5-14.5) Immature Granulocyte % (Auto) 0.4 % Immature Granulocyte # (Auto) 0.06 K/uL (0.00-0.02) Platelet Estimate DECREASED Giant Platelets 1+ Anion Gap 7.0 mmol/L (3-11) Estimated GFR () 91.9 Estimated GFR (Non- 79.3 BUN/Creatinine Ratio 26.9 (10-20) Calcium Level 8.1 mg/dl (8.5-10.1) Phosphorus Level 1.5 mg/dl (2.5-4.9) Magnesium Level 2.0 mg/dl (1.8-2.4) Total Bilirubin 0.9 mg/dl (0.2-1) Direct Bilirubin 0.3 mg/dl (0-0.2) Aspartate Amino Transf (AST/SGOT) 20 U/L (15-37) Alanine Aminotransferase (ALT/SGPT) 19 U/L (12-78) Alkaline Phosphatase 56 U/L (45-117) Troponin I < 0.015 ng/ml (0-0.045) Total Protein 6.5 gm/dl (6.4-8.2) Albumin 3.4 gm/dl (3.4-5.0) Lipase 151 U/L (73-393) Laboratory results reviewed by me Medications Administered Medications (Trade) Dose Ordered Sig/Ilia Route Start Time Stop Time Status Last Admin Dose Admin Sodium Chloride 1,000 ml @ 999 mls/hr Q1H1M STAT IV 08/26/17 10:29 08/26/17 11:29 DC 08/26/17 10:29 999 MLS/HR Ampicillin Sodium/ Sulbactam Sodium 3000 mg/Sodium Chloride 108 ml @ 200 mls/hr ONE STAT IV 08/26/17 12:14 08/26/17 12:46 DC 08/26/17 12:32 200 MLS/HR Sodium Chloride 1,000 ml @ 999 mls/hr Q1H1M STAT IV 08/26/17 12:14 08/26/17 13:14 DC 08/26/17 12:28 999 MLS/HR Potassium Phosphate 30 mmol/ Sodium Chloride 510 ml @ 88 mls/hr TODAY@1230 ONCE IV 08/26/17 12:30 08/26/17 18:17 08/26/17 13:21 88 MLS/HR ECG Per My Interpretation Indication: altered mental status Rate (beats per minute): 117 Rhythm: sinus tachycardia Findings: 1st degree AV block (prolonged), no acute ischemic change, no ectopy , other (MD interval 330) Comparison ECG Date: 06/07/17 Change: no significant change ED Course 1016: The patient was evaluated in room B9. A complete history and physical exam was performed. 1242: I updated with the patient. He is doing better, but will talk to the patient's sister to see if she is okay with him being admitted. 1322: I spoke with Dr. Tatiana Richardson - [facility] Hospitalist. She will reevaluate the patient for admission. Medical Decision I reviewed the patient's past medical history, medications, and the nursing notes as described above. Differential diagnosis: Etiologies such as metabolic, infection, hypo/hyperglycemia, electrolyte abnormalities, cardiac sources, intracerebral event, toxicologic, neurologic, as well as others were entertained. :The patient is an 82-year-old gentleman with a past medical history of developmental delay, nonverbal-minimally verbal at baseline who presents from his nursing home for decreased alertness today per hpi. On arrival patient is fatigued appearing but alert following commands and in no acute distress, afebrile stable vital signs. The patient appears clinically dry. Moving all extremities. Diminished breath sounds at the bases but otherwise clear. Heart rate is regular and tachycardic. EKG demonstrates sinus tachycardia with patient's prolonged first-degree AV block with MD interval 300S similar to prior EKG although given his tachycardia machine incorrectly interpreted as junctional. Labs notable for leukocytosis of 15. Hypophosphatemia to 1.6. Chest x-ray demonstrates likely aspiration pneumonia with multifocal opacities in the right lung in the setting of the patient's chronic dysphagia/aspiration risk. Overall the patient improving with IV fluid hydration and heart rate down to 100s. The patient was given IV Unasyn as well as IV K-Phos for phosphorus repletion. I discussed with the staff member from the nursing home at the bedside who contacted the patient's sister who is his decision maker and she is agreeable for admission. Case discussed with Dr. Tatiana Richardson, [facility] [place], will evaluate the patient for admission. Medication Reconcilliation Current Medication List: was personally reviewed by me Blood Pressure Screening Patient's blood pressure: Low blood pressure referred to hospitalist Consults Time Called: 1318 Consulting Physician: Dr. Tatiana Richardson - [facility] Hospitalist Returned Call: [address] Tatiana Richardson - [facility] Hospitalist. She will reevaluate the patient for admission. Impression Primary Impression: Pneumonia Additional Impression: Hypophosphatemia Scribe Attestation The scribe's documentation has been prepared under my direction and personally reviewed by me in its entirety. I confirm that the note above accurately reflects all work, treatment, procedures, and medical decision making performed by me. Departure Information Dispostion Being Evaluated By Hospitalist Referrals Malik Griffin M.D. (PCP) Problem Qualifiers
--- NOTE | 2017-08-26 11:17 | DIAGNOSTIC IMAGING REPORT ---
CHEST ONE VIEW PORTABLE HISTORY: 82 years-old Male ABDOMINAL PAIN/GI acute generalized abdominal pain COMPARISON: Chest CT 06/07/2017, chest radiograph 02/23/2017 TECHNIQUE: Portable AP view of the chest FINDINGS: Study is limited secondary to patient rotation to the right. Cardiac silhouette is enlarged. No pneumothorax or pleural effusion. Multifocal alveolar opacities throughout the right lung are noted, probably within a peripheral distribution. Additionally, there is ill-defined left basilar densities present. Lungs appear mildly hyperinflated. Degenerative changes of the shoulders and spine. IMPRESSION: 1. Multifocal alveolar opacities about the right lung suggest multifocal pneumonia or aspiration pneumonitis. 2. Subsegmental left basilar opacities favor atelectasis. 3. Cardiomegaly. The above report was generated using voice recognition software. It may contain grammatical, syntax or spelling errors. Electronically signed by: Alejandro Davila M.D. 08/26/2017 11:16 AM Dictated Date/Time: 08/26/2017 11:14 AM
--- NOTE | 2017-08-26 11:18 | DIAGNOSTIC IMAGING REPORT ---
HEAD WITHOUT CONTRAST (CT) CLINICAL HISTORY: 82 years-old Male presenting with ams. TECHNIQUE: Multidetector CT imaging of the head was performed without the use of intravenous contrast. IV contrast: None. A dose lowering technique was used consistent with the principles of ALARA (as low as reasonably achievable). COMPARISON: 06/07/2017. CT DOSE (mGy.cm): The estimated cumulative dose is 1683.20 mGycm. FINDINGS: Physician Assistant Surgery topogram: Unremarkable. Proportional ventricular and sulcal prominence, likely age-related parenchymal volume loss. Significant calcifications in the globus pallidus. Periventricular and subcortical white matter hypoattenuation, nonspecific but likely indicative of chronic small vessel ischemic change. No mass effect or midline shift. No hemorrhage or acute territorial infarct. No extra-axial fluid collection. Paranasal sinuses and mastoid air cells clear. Calvarium intact. Intracranial atherosclerosis noted. 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 IMPRESSION: 1. Chronic small vessel ischemic change. No acute intracranial abnormality. Electronically signed by: Demarco Mcgraw M.D. 08/26/2017 11:17 AM Dictated Date/Time: 08/26/2017 11:13 AM
[2017-08-26] MEDS ORDERED: SENOKOT PO (11:43)
[2017-08-26] MEDS ORDERED: NYST100033 TOP (11:43)
[2017-08-26] MEDS ORDERED: CARB1SOL8 OT (11:43)
[2017-08-26] MEDS ORDERED: LTRCR45 TOP (11:43)
[2017-08-26 11:55] LABS: HEMATOCRIT 39.7 % (42-52); HEMOGLOBIN 13.2 g/dL (14.0-18.0); MEAN CELL VOLUME 95.2 fL (80-100); MEAN CORPUSCULAR HEMOGLOBIN 31.7 pg (25-34); MEAN CORPUSCULAR HGB CONC 33.2 g/dl (32-36); MEAN PLATELET VOLUME 12.1 fL (7.4-10.4); PLATELET COUNT 116 K/uL (130-400); RED CELL DISTRIBUTION WIDTH CV 13.4 % (11.5-14.5); RED CELL DISTRIBUTION WIDTH SD 46.3 fL (36.4-46.3); WHITE BLOOD COUNT 15.28 K/uL (4.8-10.8)
[2017-08-26 11:56] LABS: BASO % 0.1 %; BASO ABS # 0.01 K/uL (0-0.2); EOS % 0.1 %; EOS ABS # 0.02 K/uL (0-0.5); IG# 0.06 K/uL (0.00-0.02); LYMPH ABS # 0.46 K/uL (1.2-3.4); MONO ABS # 1.38 K/uL (0.11-0.59); NEUT % 87.4 %; NEUT ABS # 13.35 K/uL (1.4-6.5)
[2017-08-26 12:04] LABS: ALBUMIN 3.4 gm/dl (3.4-5.0); ALKALINE PHOSPHATASE 56 U/L (45-117); ALT/SGPT 19 U/L (12-78); AST/SGOT 20 U/L (15-37); BLOOD UREA NITROGEN 25 mg/dl (7-18); CALCIUM 8.1 mg/dl (8.5-10.1); CARBON DIOXIDE 27 mmol/L (21-32); CREATININE 0.91 mg/dl (0.60-1.40); GLUCOSE 120 mg/dl (70-99); LIPASE 151 U/L (73-393); PHOSPHORUS 1.5 mg/dl (2.5-4.9); POTASSIUM 3.7 mmol/L (3.5-5.1); SODIUM 141 mmol/L (136-145); TOTAL PROTEIN 6.5 gm/dl (6.4-8.2)
[2017-08-26] MEDS ORDERED: AMPICILLIN/SULBACTAM SOD INJ 3,000 MG in SODIUM CHLORIDE 0.9% 100ML 100 ML IV STA (12:14)
[2017-08-26] MEDS ORDERED: POTASSIUM PHOS 3 MMOL/1 ML INFUSION IV STA ×2 (12:14→16:33)
[2017-08-26] MEDS ORDERED: POTASSIUM PHOSPHATE INJ 30 MMOL in SODIUM CHLORIDE 0.9% 500ML 500 ML IV ONE (12:30)
--- NOTE | 2017-08-26 12:35 | DIAGNOSTIC IMAGING REPORT ---
[place] CLINICAL HISTORY: Constipation. COMPARISON STUDY: CT of the abdomen and pelvis June 07, 2017. FINDINGS: The bowel gas pattern is normal. Patient is rotated. There is a moderate amount stool within the colon and rectum. No calcifications are identified within the abdomen or pelvis. IMPRESSION: 1. Moderate amount of stool within the colon and rectum. 2. No evidence for a bowel obstruction. Electronically signed by: Dewayne Hickman M.D. 08/26/2017 12:33 PM Dictated Date/Time: 08/26/2017 12:32 PM
[2017-08-26] MEDS ORDERED: ONDANSETRON INJ 2 MG/ML 2 ML VIAL IV PRN (16:45)
[2017-08-26] MEDS ORDERED: MAGNESIUM HYDROXIDE SUSP 30 ML UDC PO PRN ×2 (16:45)
[2017-08-26] MEDS ORDERED: FEXOFENADINE HCL 180 MG TAB PO PRN (16:45)
[2017-08-26] MEDS ORDERED: ALUMINUM/MAGNESIUM/SIMETH (MAALOX MAX) 30 ML UDC PO PRN (16:45)
[2017-08-26] MEDS ORDERED: ACETAMINOPHEN 325 MG TAB PO PRN ×2 (16:45)
[2017-08-26] MEDS ORDERED: GUAIFENESIN/DEXTROM SYRUP 100MG/10MG 5ML UDC PO PRN (16:45)
--- NOTE | 2017-08-26 16:55 | History and Physical ---
History & Physical Date & Time of Service: Aug 26, 2017 at 16:42 Chief Complaint: AMS Primary Care Physician: Malik Griffin M.D. History of Present Illness Source: caregiver 82 y/o M who was brought to the ED by caregivers for concern regarding decreased responsiveness. Caregiver states that she did not work yesterday, but was signed out that pt was his usual self yesterday with the exception of staying up until 12-12:30am. He ate and was in his usual mood which is described as minimally verbal but "spunky". She states that pt is usually grumpy but if he is feeling unwell, he is more docile and allows more touching and other interactions. He was difficult to rouse this AM but did take all of his pills. He was given his usual valium as well despite being difficult to rouse. This worsened and "he couldn't wake up but you could tell he wanted to", so they brought him in for eval. Pt received IVF and abx in the ED. Caregiver says he is better, but not at his usual yet. Pt has hx of dysphagia. Caregiver states he had a speech eval on his last admission about 6 months ago that recommended for pureed diet, which they follow . He also had outpt speech therapy at his detention for several weeks. Pt is not to have a feeding tube per family (sister is POA). Pt has had no other concerns and was eating without issue until today. There has been no report of fever, SOB, abd pain, n/v/d, LE swelling or pain, chest pain. Pt has been constipated x4 days. He generally has a bowel movement daily with senna, but they added MOM over the last few days without help. Past Medical/Surgical History Developmental delay BPH STEMI CVA Hx of seizure--yrs ago and no meds for this without recurrence Anxiety--Valium, diazepam Dysphagia with hx of asp PNA Family History Family history was reviewed; no changes noted. Social History Smoking Status: Never Smoker Alcohol Use: none Drug Use: none Marital Status: single Occupational Status: disabled Immunizations History of Influenza Vaccine: Unknown History of Tetanus Vaccine?: Unknown History of Pneumococcal: Unknown History of Hepatitis B Vaccine: Unknown Allergies Coded Allergies: No Known Allergies (Verified , 08/26/17) Home Medications Scheduled Carbamide Peroxide (Otic) (Debrox), 5 DROPS OT BID Clotrimazole (Clotrimazole), 1 APPLN TOP HS Diazepam (Valium), 2 MG PO BID Diazepam (Diazepam), 5 MG PO UD Finasteride (Proscar), 5 MG PO QAM Ketoconazole (Topical) (Nizoral), 1 APPLN TOP 3XWK Loperamide Hcl (Imodium A-D), 2 MG PO UD Magnesium Hydroxide (Milk Of Magnesia), 15 ML PO WK Meloxicam (Mobic), 7.5 MG PO BID Metronidazole (Topical) (Metrogel), 1 DOSE TOP HS Nystatin (Topical) (Nystatin), 1 DOSE TOP BID [Senokot Liquid], 1 DOSE PO QAM Scheduled PRN Acetaminophen (Tylenol), 650 MG PO Q4 PRN for FEVER, HEADACHE, ACHES, PAINS Alum & Mag Hydrox-Simethicone (Mylanta), 30 ML PO Q4 PRN for GAS Dextromethorphan-Phenylephrine (Vicks Dayquil Cold & Flu), 1 DOSE PO UD PRN for COLD/FLU Fexofenadine Hcl (Brittany), 180 MG PO DAILY PRN for Allergic Reaction Guaifenesin/Dextromethorphan (Robitussin-Dm - Substitute), 5 ML PO Q6 PRN for COUGH/CONGESTION Magnesium Hydroxide (Milk Of Magnesia), 30 ML PO DAILY PRN for Constipation Review of Systems Pertinent positives and negatives reviewed in HPI--all others negative Physical Exam Vital Signs Date Time Temp Pulse Resp B/P (MAP) Pulse Ox O2 Delivery O2 Flow Rate FiO2 08/26/17 15:49 104 23 99/44 95 Room Air 08/26/17 14:03 104 18 101/57 94 Room Air 08/26/17 13:11 105 08/26/17 12:06 114 20 92/60 94 Room Air 08/26/17 10:29 111 08/26/17 10:22 36.6 113 18 120/58 94 Room Air General Appearance: WD/WN, no apparent distress Head: normocephalic, atraumatic Eyes: normal inspection, sclerae normal Respiratory/Chest: normal breath sounds, no respiratory distress Cardiovascular: regular rate, rhythm, no edema Abdomen/GI: non tender, soft Extremities/Musculoskelatal: no calf tenderness, no pedal edema Neurologic/Psych: alert (opens eyes to voice, made a noise in response to my saying hello, cooperative) Skin: normal color, warm/dry Diagnostics Laboratory Results Results Past 24 Hours Test 08/26/17 10:40 08/26/17 11:24 Range/Units Urine Color DK YELLOW Urine Appearance CLEAR CLEAR Urine pH 8.0 4.5-7.5 Urine Specific [place] 1.025 1.000-1.030 Urine Protein NEG NEG Urine Glucose (UA) NEG NEG Urine Ketones NEG NEG Urine Occult Blood NEG NEG Urine Nitrite NEG NEG Urine Bilirubin NEG NEG Urine Urobilinogen NEG NEG Urine Leukocyte Esterase TRACE NEG Urine WBC (Auto) 1-5 0-5 /hpf Urine RBC (Auto) 0-4 0-4 /hpf Urine Hyaline Casts (Auto) 1-5 0-5 /lpf Urine Epithelial Cells (Auto) 20-30 0-5 /lpf Urine Bacteria (Auto) NEG NEG White Blood Count 15.28 4.8-10.8 K/uL Red Blood Count 4.17 4.7-6.1 M/uL Hemoglobin 13.2 14.0-18.0 g/dL Hematocrit 39.7 42-52 % Mean Corpuscular Volume 95.2 80-100 fL Mean Corpuscular Hemoglobin 31.7 25-34 pg Mean Corpuscular Hemoglobin Concent 33.2 32-36 g/dl Platelet Count 116 130-400 K/uL Mean Platelet Volume 12.1 7.4-10.4 fL Neutrophils (%) (Auto) 87.4 % Lymphocytes (%) (Auto) 3.0 % Monocytes (%) (Auto) 9.0 % Eosinophils (%) (Auto) 0.1 % Basophils (%) (Auto) 0.1 % Neutrophils # (Auto) 13.35 1.4-6.5 K/uL Lymphocytes # (Auto) 0.46 1.2-3.4 K/uL Monocytes # (Auto) 1.38 0.11-0.59 K/uL Eosinophils # (Auto) 0.02 0-0.5 K/uL Basophils # (Auto) 0.01 0-0.2 K/uL RDW Standard Deviation 46.3 36.4-46.3 fL RDW Coefficient of Variation 13.4 11.5-14.5 % Immature Granulocyte % (Auto) 0.4 % Immature Granulocyte # (Auto) 0.06 0.00-0.02 K/uL Platelet Estimate DECREASED Giant Platelets 1+ Sodium Level 141 136-145 mmol/L Potassium Level 3.7 3.5-5.1 mmol/L Chloride Level 107 98-107 mmol/L Carbon Dioxide Level 27 21-32 mmol/L Anion Gap 7.0 3-11 mmol/L Blood Urea Nitrogen 25 7-18 mg/dl Creatinine 0.91 0.60-1.40 mg/dl Estimated GFR () 91.9 Estimated GFR (Non- 79.3 BUN/Creatinine Ratio 26.9 10-20 Random Glucose 120 70-99 mg/dl Calcium Level 8.1 8.5-10.1 mg/dl Phosphorus Level 1.5 2.5-4.9 mg/dl Magnesium Level 2.0 1.8-2.4 mg/dl Total Bilirubin 0.9 0.2-1 mg/dl Direct Bilirubin 0.3 0-0.2 mg/dl Aspartate Amino Transf (AST/SGOT) 20 15-37 U/L Alanine Aminotransferase (ALT/SGPT) 19 12-78 U/L Alkaline Phosphatase 56 45-117 U/L Troponin I < 0.015 0-0.045 ng/ml Total Protein 6.5 6.4-8.2 gm/dl Albumin 3.4 3.4-5.0 gm/dl Lipase 151 73-393 U/L Diagnostic Radiology CXR: likely aspiration PNA CT head: neg for acute KUB: moderate amount of stool in colon/rectum, neg for obstruction Impression Assessment and Plan 82 y/o M who was admitted on 08/26 with decreased responsiveness Decreased responsiveness: likely related to asp PNA Hx of same and noted on CXR CT head neg for acute WBC elevated, tachycardic, mildly hypoTN Trop neg, EKG with 1st degree AV block, seen prior PRP WNL Phos low, will replace Speech therapy eval pending HypoPhos: replace and monitor Constipation: MOM, senna as prior t/c enema if not improving KUB neg for obstruction BPH: continue home meds STEMI/CVA: stable, not on aspirin/plavix/etc per caregiver Seizure hx: no meds for this as this was years ago Caregiver is specific that Valium is for mood only Mood disorder: holding valium/diazepam for now given decreased responsiveness Other: DNR/DNI. Sister is POA if needed Heparin for DVT proph Pureed diet CM c/s for return to detention on d/c Resuscitation Status VTE Prophylaxis Will order VTE Prophylaxis: Yes
[2017-08-26 18:15] VITALS: BP 111/55; PULSE 104; TEMP 37; O2SAT 94
[2017-08-26] MEDS: SODIUM CHLORIDE 0.9% 1000ML 1,000 ML IV SCH (18:29)
[2017-08-26] MEDS ORDERED: PATIENT'S HEIGHT AND/OR WEIGHT NEEDED SCH (19:30)
[2017-08-26] MEDS ORDERED: LOPERAMIDE HCL 2 MG CAP PO PRN (19:30)
[2017-08-26 19:41] VITALS: BP 111/55; PULSE 104; TEMP 37; O2SAT 94; BMI 19.8
[2017-08-26 20:11] LABS: PTT PATIENT 27.4 SECONDS (21.0-31.0)
[2017-08-26] MEDS: LEVOFLOXACIN / D5W 750 MG in PREMIXED IN D5W 150 ML IV SCH (20:26)
[2017-08-26] MEDS: CARBAMIDE PEROXIDE 6.5% 15 ML BTL OT SCH (20:27)
[2017-08-26] MEDS: METRONIDAZOLE 0.75% TOPICAL GEL 45 GM TUBE TOP SCH (20:28)
[2017-08-26] MEDS: CLOTRIMAZOLE 1% CR 15 GM TUBE EXT SCH (20:28)
[2017-08-26] MEDS: NYSTATIN POWDER 15GM BTL EXT SCH (20:29)
[2017-08-26] MEDS: MELOXICAM 7.5 MG TAB PO SCH (20:30)
[2017-08-26] MEDS: HEPARIN SOD 5000 UNIT/0.5 ML CARP SQ SCH (21:11)
[2017-08-27] VITALS (9 sets, daily range): BP systolic 105–144; BP diastolic 62–70; PULSE 71–102; TEMP 36.4–36.9; O2SAT 93–96; Ht 152.4 cm; Wt 45.9 kg
[2017-08-27] MEDS: SODIUM CHLORIDE 0.9% 1000ML 1,000 ML IV SCH ×2 (04:56→17:20)
--- NOTE | 2017-08-27 07:29 | Clinical Documentation Query ---
CLINICAL DOCUMENTATION QUERY Dr. KNAPP, In your clinical opinion is this patient being managed for: ( x ) Metabolic encephalopathy in the setting of dehydration, hypophosphatemia, and aspiration pneumonia ( ) Not Agree ( ) Other explanation of clinical findings (No explanation is considered a No Response) ( ) Unable to determine ( ) Need to Discuss (Phone CDS or qliq) (No discussion is considered a No Response) The medical record reflects the following clinical findings, treatment, and risk factors. Clinical Indicators: 82 yo male presenting due to an altered mental status. Found to be difficult to [facility]. Found to have aspiration pneumonia. Phos 1.5, WBC 15.28, BUN 25, CT head without acute abnormalities. Caregivers report that pt is not at his baseline mental functioning at time of ER arrival but did show some improvement with ER treatment. Treatment: 2L NSS bolus then continuous IV fluids, IV unasyn, IV K phos, IV levaquin, monitor PRP's and CBC's Risk Factors: aspiration pneumonia, hypophosphatemia, dehydration Please clarify and document your clinical opinion in the progress notes and discharge summary. Terms such as "probable", "suspected", "likely", "questionable", "possible", or "still to be ruled out" are acceptable. IF IN AGREEMENT, YOU MUST DOCUMENT ABOVE DIAGNOSTIC STATEMENT IN DAILY PROGRESS NOTES AND DISCHARGE SUMMARY. This document is not part of the patient's record. Thank You, Santa Velázquez RN [phone]
[2017-08-27] MEDS: NYSTATIN POWDER 15GM BTL EXT SCH ×2 (07:36→19:37)
[2017-08-27] MEDS: CARBAMIDE PEROXIDE 6.5% 15 ML BTL OT SCH ×2 (07:36→19:38)
[2017-08-27] MEDS: FINASTERIDE 5 MG TAB PO SCH (07:37)
[2017-08-27] MEDS: MELOXICAM 7.5 MG TAB PO SCH ×2 (07:37→19:38)
[2017-08-27] MEDS: SENNA 8.8 MG/5 ML UDP PO SCH (07:38)
[2017-08-27] MEDS: HEPARIN SOD 5000 UNIT/0.5 ML CARP SQ SCH ×2 (07:39→19:40)
[2017-08-27] MEDS: MAGNESIUM HYDROXIDE SUSP 30 ML UDC PO SCH (07:42)
[2017-08-27] MEDS: ALBUT/IPRATROP 3MG/0.5MG NEB 3 ML VIAL INH SCH ×4 (08:00→19:15)
[2017-08-27 13:04] LABS: HEMATOCRIT 35.1 % (42-52); HEMOGLOBIN 11.6 g/dL (14.0-18.0); MEAN CELL VOLUME 95.6 fL (80-100); MEAN CORPUSCULAR HEMOGLOBIN 31.6 pg (25-34); MEAN PLATELET VOLUME 12.5 fL (7.4-10.4); PLATELET COUNT 98 K/uL (130-400); RED CELL DISTRIBUTION WIDTH CV 13.7 % (11.5-14.5); RED CELL DISTRIBUTION WIDTH SD 47.3 fL (36.4-46.3); WHITE BLOOD COUNT 12.44 K/uL (4.8-10.8)
[2017-08-27 13:13] LABS: CALCIUM 7.7 mg/dl (8.5-10.1); CREATININE 0.8 mg/dl (0.60-1.40); POTASSIUM 3.5 mmol/L (3.5-5.1)
--- NOTE | 2017-08-27 16:33 | Progress Note ---
Subjective Date of Service: Aug 27, 2017. Subjective Pt evaluation today including: conversation w/ patient, conversation w/ family , physical exam, chart review, lab review, review of studies, conversation w/ client consultant, review of inpatient medication list Patient is nonverbal, which is his baseline, he started yelling and making noise , which is normal per caregiver, per caregiver he is approaching to his baseline , but not in his baseline yet Problem List Medical Problems: (1) Aspiration pneumonitis Status: Acute (2) Chest wall injury Status: Acute (3) Facial laceration Status: Acute (4) Head trauma Status: Acute (5) Hypophosphatemia Status: Acute (6) Laceration of head Status: Acute (7) Leg abrasion Status: Acute (8) Neck contusion Status: Acute (9) Pneumonia Status: Acute (10) Pneumonia Status: Acute (11) Pneumonia Status: Acute Review of Systems Constitutional: + problem reported (No able to obtain in detail because he is nonverbal), No fever, No chills Objective Vital Signs Date Time Temp Pulse Resp B/P (MAP) Pulse Ox O2 Delivery O2 Flow Rate FiO2 08/27/17 15:11 36.4 86 18 144/70 (94) 94 Room Air 08/27/17 15:10 86 94 Room Air 08/27/17 11:23 71 Room Air 08/27/17 08:33 36.6 89 18 110/62 (78) 95 Room Air 08/27/17 08:30 96 Room Air 08/27/17 00:16 36.5 91 20 105/65 (78) 95 Room Air 08/27/17 00:00 Room Air 08/26/17 19:41 37.0 104 18 111/55 94 Room Air 08/26/17 18:15 37.0 104 18 111/55 (73) 94 Room Air 08/26/17 17:45 37.1 98 20 113/49 94 08/26/17 17:17 97 Physical Exam General Appearance: WD/WN (Frail chronically ill looking), no apparent distress , + thin, + pertinent finding ENT: normal ENT inspection, hearing grossly normal Neck: supple, no adenopathy Respiratory/Chest: chest non-tender, lungs clear, normal breath sounds, no respiratory distress Cardiovascular: regular rate, rhythm, no edema, no gallop Abdomen: normal bowel sounds, non tender, soft Extremities: normal range of motion, non-tender, normal inspection, no pedal edema Neurologic/Psychiatric: wellness trainer II-XII nml as tested, no motor/sensory deficits, alert, normal mood/affect Skin: normal color, warm/dry Laboratory Results Last 24 Hours Test 08/27/17 12:23 White Blood Count 12.44 K/uL Red Blood Count 3.67 M/uL Hemoglobin 11.6 g/dL Hematocrit 35.1 % Mean Corpuscular Volume 95.6 fL Mean Corpuscular Hemoglobin 31.6 pg Mean Corpuscular Hemoglobin Concent 33.0 g/dl RDW Standard Deviation 47.3 fL RDW Coefficient of Variation 13.7 % Platelet Count 98 K/uL Mean Platelet Volume 12.5 fL Platelet Estimate DECREASED Sodium Level 145 mmol/L Potassium Level 3.5 mmol/L Chloride Level 113 mmol/L Carbon Dioxide Level 25 mmol/L Anion Gap 6.0 mmol/L Blood Urea Nitrogen 17 mg/dl Creatinine 0.80 mg/dl Est Creatinine Clear Calc Drug Dose 47.8 ml/min Estimated GFR () 97.8 Estimated GFR (Non- 84.4 BUN/Creatinine Ratio 20.7 Random Glucose 103 mg/dl Calcium Level 7.7 mg/dl Phosphorus Level 2.0 mg/dl Magnesium Level 2.3 mg/dl Assessment and Plan 82 y/o M who was admitted on 08/26/2017 with decreased responsiveness Decreased responsiveness: likely related to asp PNA 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 , nonverbal Metabolic encephalopathy in the setting of dehydration, hypophosphatemia, and aspiration pneumonia, Hx of same and noted on CXR CT head neg for acute Continue antibiotic with Levaquin, Flagyl, breathing treatment, followed by instruction from speech, advance diet as tolerated, The new monitor electrolytes, Constipation no bowel movement for several days: MOM, senna as prior t/c enema if not improving KUB neg for obstruction BPH: continue home meds STEMI/CVA: stable, not on aspirin/plavix/etc per caregiver Seizure hx: no meds for this as this was years ago Caregiver is specific that Valium is for mood only Mood disorder: holding valium/diazepam for now given decreased responsiveness Other: DNR/DNI. Sister is POA if needed Heparin for DVT proph Pureed diet CM c/s for return to halfway on d/c, possible discharge in day 1 or 2 Continued [facility] stay due to: multiple IV medications needed Discharge planning: home
[2017-08-27] MEDS ORDERED: SOD PHOSPHATE/SOD BIPHOSPHATE ENEMA 132 ML BTL PR STA (16:44)
[2017-08-27] MEDS ORDERED: POTASSIUM PHOS 3 MMOL/1 ML INFUSION IV STA (16:47)
[2017-08-27] MEDS ORDERED: POTASSIUM PHOSPHATE INJ 15 MMOL in SODIUM CHLORIDE 0.9% 250ML 250 ML IV ONE (17:00)
[2017-08-27] MEDS: CLOTRIMAZOLE 1% CR 15 GM TUBE EXT SCH (19:38)
[2017-08-27] MEDS: METRONIDAZOLE 0.75% TOPICAL GEL 45 GM TUBE TOP SCH (19:38)
[2017-08-28] VITALS (8 sets, daily range): BP systolic 107–149; BP diastolic 73–80; PULSE 73–98; TEMP 36.7–37.2; O2SAT 90–96
[2017-08-28] MEDS: ALBUT/IPRATROP 3MG/0.5MG NEB 3 ML VIAL INH SCH ×4 (07:04→18:58)
[2017-08-28] MEDS: FINASTERIDE 5 MG TAB PO SCH (07:39)
[2017-08-28] MEDS: SODIUM CHLORIDE 0.9% 1000ML 1,000 ML IV SCH (07:39)
[2017-08-28] MEDS: MELOXICAM 7.5 MG TAB PO SCH ×2 (07:39→20:53)
[2017-08-28] MEDS: SENNA 8.8 MG/5 ML UDP PO SCH (07:39)
[2017-08-28] MEDS: NYSTATIN POWDER 15GM BTL EXT SCH ×2 (07:40→20:53)
[2017-08-28] MEDS: CARBAMIDE PEROXIDE 6.5% 15 ML BTL OT SCH ×2 (07:40→20:53)
[2017-08-28] MEDS: MAGNESIUM HYDROXIDE SUSP 30 ML UDC PO SCH (07:41)
[2017-08-28] MEDS: HEPARIN SOD 5000 UNIT/0.5 ML CARP SQ SCH ×2 (07:43→20:56)
[2017-08-28 08:53] LABS: BASO % 0.1 %; BASO ABS # 0.01 K/uL (0-0.2); EOS % 0.6 %; EOS ABS # 0.06 K/uL (0-0.5); HEMATOCRIT 35.9 % (42-52); IG# 0.03 K/uL (0.00-0.02); LYMPH % 9.6 %; LYMPH ABS # 1.03 K/uL (1.2-3.4); MEAN CELL VOLUME 94.5 fL (80-100); MEAN CORPUSCULAR HEMOGLOBIN 31.6 pg (25-34); MEAN CORPUSCULAR HGB CONC 33.4 g/dl (32-36); MEAN PLATELET VOLUME 11.8 fL (7.4-10.4); MONO % 7.5 %; MONO ABS # 0.81 K/uL (0.11-0.59); NEUT % 81.9 %; NEUT ABS # 8.83 K/uL (1.4-6.5); PLATELET COUNT 109 K/uL (130-400); RED CELL DISTRIBUTION WIDTH CV 13.5 % (11.5-14.5); RED CELL DISTRIBUTION WIDTH SD 46.6 fL (36.4-46.3); WHITE BLOOD COUNT 10.77 K/uL (4.8-10.8)
--- NOTE | 2017-08-28 09:16 | Progress Note ---
Subjective Date of Service: Aug 28, 2017. Problem List Medical Problems: (1) Aspiration pneumonitis Status: Acute (2) Chest wall injury Status: Acute (3) Facial laceration Status: Acute (4) Head trauma Status: Acute (5) Hypophosphatemia Status: Acute (6) Laceration of head Status: Acute (7) Leg abrasion Status: Acute (8) Neck contusion Status: Acute (9) Pneumonia Status: Acute (10) Pneumonia Status: Acute (11) Pneumonia Status: Acute Objective Vital Signs Date Time Temp Pulse Resp B/P (MAP) Pulse Ox O2 Delivery O2 Flow Rate FiO2 08/28/17 09:00 36.7 97 20 149/74 (99) 90 Room Air 08/28/17 07:23 37.2 98 22 143/73 (96) 92 Room Air 08/28/17 07:04 98 22 93 Room Air 08/27/17 23:13 36.9 102 22 140/70 (93) 94 Room Air 08/27/17 20:20 Room Air 08/27/17 19:15 89 93 Room Air 08/27/17 16:00 95 Room Air 08/27/17 15:11 36.4 86 18 144/70 (94) 94 Room Air 08/27/17 15:10 86 94 Room Air 08/27/17 11:23 71 Room Air Laboratory Results Last 24 Hours Test 08/27/17 12:23 08/28/17 08:41 White Blood Count 12.44 K/uL 10.77 K/uL Red Blood Count 3.67 M/uL 3.80 M/uL Hemoglobin 11.6 g/dL 12.0 g/dL Hematocrit 35.1 % 35.9 % Mean Corpuscular Volume 95.6 fL 94.5 fL Mean Corpuscular Hemoglobin 31.6 pg 31.6 pg Mean Corpuscular Hemoglobin Concent 33.0 g/dl 33.4 g/dl RDW Standard Deviation 47.3 fL 46.6 fL RDW Coefficient of Variation 13.7 % 13.5 % Platelet Count 98 K/uL 109 K/uL Mean Platelet Volume 12.5 fL 11.8 fL Platelet Estimate DECREASED Sodium Level 145 mmol/L Potassium Level 3.5 mmol/L Chloride Level 113 mmol/L Carbon Dioxide Level 25 mmol/L Anion Gap 6.0 mmol/L Blood Urea Nitrogen 17 mg/dl Creatinine 0.80 mg/dl Est Creatinine Clear Calc Drug Dose 47.8 ml/min Estimated GFR () 97.8 Estimated GFR (Non- 84.4 BUN/Creatinine Ratio 20.7 Random Glucose 103 mg/dl Calcium Level 7.7 mg/dl Phosphorus Level 2.0 mg/dl Magnesium Level 2.3 mg/dl Neutrophils (%) (Auto) 81.9 % Lymphocytes (%) (Auto) 9.6 % Monocytes (%) (Auto) 7.5 % Eosinophils (%) (Auto) 0.6 % Basophils (%) (Auto) 0.1 % Neutrophils # (Auto) 8.83 K/uL Lymphocytes # (Auto) 1.03 K/uL Monocytes # (Auto) 0.81 K/uL Eosinophils # (Auto) 0.06 K/uL Basophils # (Auto) 0.01 K/uL Immature Granulocyte % (Auto) 0.3 % Immature Granulocyte # (Auto) 0.03 K/uL Assessment and Plan 82 y/o M who was admitted on 08/26/2017 with decreased responsiveness Decreased responsiveness: likely related to asp PNA History of development delay in the senior care , nonverbal Metabolic encephalopathy in the setting of dehydration, hypophosphatemia, and aspiration pneumonia, Hx of same and noted on CXR CT head neg for acute Continue antibiotic with Levaquin, Flagyl, breathing treatment, followed by instruction from speech, advance diet as tolerated, The new monitor electrolytes, Constipation no bowel movement for several days: MOM, senna as prior t/c enema if not improving KUB neg for obstruction BPH: continue home meds STEMI/CVA: stable, not on aspirin/plavix/etc per caregiver Seizure hx: no meds for this as this was years ago Caregiver is specific that Valium is for mood only Mood disorder: holding valium/diazepam for now given decreased responsiveness Other: DNR/DNI. Sister is POA if needed Heparin for DVT proph Pureed diet CM c/s for return to senior care on d/c, possible discharge in day 1 or 2 d/w' ed with sister Shabnam , he dose not want any aggressive, or heroic methods for patient Continued [facility] stay due to: multiple IV medications needed Discharge planning: home
[2017-08-28 09:17] LABS: CALCIUM 7.4 mg/dl (8.5-10.1); CREATININE 0.55 mg/dl (0.60-1.40); POTASSIUM 3.6 mmol/L (3.5-5.1)
--- NOTE | 2017-08-28 09:54 | DIAGNOSTIC IMAGING REPORT ---
CHEST 2 VIEWS ROUTINE CLINICAL HISTORY: aspiration? mild labored breathing dyspnea COMPARISON STUDY: 08/26/2017 FINDINGS: Progressive bibasilar parenchymal infiltrates. Small left effusion. Moderate prominent pulmonary vasculature. IMPRESSION: Mildly progressive components of congestive failure, basilar parenchymal infiltrative change. The above report was generated using voice recognition software. It may contain grammatical, syntax or spelling errors. Electronically signed by: Wilfredo Orona M.D. 08/28/2017 9:52 AM Dictated Date/Time: 08/28/2017 9:51 AM
[2017-08-28] MEDS ORDERED: FUROSEMIDE INJ 10 MG in SYRINGE 0 ML IV ONE (17:00)
[2017-08-28] MEDS: LEVOFLOXACIN / D5W 750 MG in PREMIXED IN D5W 150 ML IV SCH (20:50)
[2017-08-28] MEDS: METRONIDAZOLE 0.75% TOPICAL GEL 45 GM TUBE TOP SCH (21:03)
[2017-08-28] MEDS: CLOTRIMAZOLE 1% CR 15 GM TUBE EXT SCH (21:03)
[2017-08-29] VITALS (7 sets, daily range): BP systolic 124–144; BP diastolic 68–79; PULSE 72–94; TEMP 36.3–37.3; O2SAT 92–96
[2017-08-29] MEDS: ALBUT/IPRATROP 3MG/0.5MG NEB 3 ML VIAL INH SCH ×4 (07:12→18:58)
[2017-08-29 07:25] LABS: BASO % 0.3 %; BASO ABS # 0.02 K/uL (0-0.2); EOS % 2.2 %; EOS ABS # 0.17 K/uL (0-0.5); HEMATOCRIT 34.1 % (42-52); HEMOGLOBIN 11.5 g/dL (14.0-18.0); IG# 0.03 K/uL (0.00-0.02); LYMPH % 11.5 %; LYMPH ABS # 0.89 K/uL (1.2-3.4); MEAN CELL VOLUME 93.4 fL (80-100); MEAN CORPUSCULAR HEMOGLOBIN 31.5 pg (25-34); MEAN CORPUSCULAR HGB CONC 33.7 g/dl (32-36); MEAN PLATELET VOLUME 11.6 fL (7.4-10.4); MONO % 9.7 %; MONO ABS # 0.75 K/uL (0.11-0.59); NEUT % 75.9 %; NEUT ABS # 5.91 K/uL (1.4-6.5); PLATELET COUNT 107 K/uL (130-400); RED CELL DISTRIBUTION WIDTH CV 13.4 % (11.5-14.5); RED CELL DISTRIBUTION WIDTH SD 45.9 fL (36.4-46.3); WHITE BLOOD COUNT 7.77 K/uL (4.8-10.8)
[2017-08-29 07:57] LABS: CALCIUM 7.5 mg/dl (8.5-10.1); CREATININE 0.57 mg/dl (0.60-1.40); POTASSIUM 3.4 mmol/L (3.5-5.1)
[2017-08-29] MEDS: SENNA 8.8 MG/5 ML UDP PO SCH (08:00)
--- NOTE | 2017-08-29 08:02 | Progress Note ---
Subjective Date of Service: Aug 29, 2017. Subjective Pt evaluation today including: conversation w/ patient, physical exam, chart review, lab review, review of studies, conversation w/ contract consultant, review of inpatient medication list Comfortable, alert, make no wheezing and yelling, afebrile, otherwise organizationally review not able to obtain Problem List Medical Problems: (1) Aspiration pneumonitis Status: Acute (2) Chest wall injury Status: Acute (3) Facial laceration Status: Acute (4) Head trauma Status: Acute (5) Hypophosphatemia Status: Acute (6) Laceration of head Status: Acute (7) Leg abrasion Status: Acute (8) Neck contusion Status: Acute (9) Pneumonia Status: Acute (10) Pneumonia Status: Acute (11) Pneumonia Status: Acute Objective Vital Signs Date Time Temp Pulse Resp B/P (MAP) Pulse Ox O2 Delivery O2 Flow Rate FiO2 08/29/17 07:30 36.3 84 18 132/68 (89) 92 Room Air 08/29/17 07:12 72 20 94 Room Air 08/29/17 00:00 Room Air 08/28/17 23:10 36.8 89 20 136/76 (96) 94 Room Air 08/28/17 18:58 73 20 Room Air 08/28/17 16:00 92 Room Air 08/28/17 15:21 88 20 92 Room Air 08/28/17 14:46 36.8 83 20 107/80 (89) 96 08/28/17 09:00 36.7 97 20 149/74 (99) 90 Room Air Physical Exam General Appearance: WD/WN, no apparent distress Eyes: normal inspection, PERRL, EOMI, sclerae normal ENT: normal ENT inspection, hearing grossly normal, pharynx normal, + pertinent finding (Oral mucosa has thrush) Neck: supple, no adenopathy, thyroid normal, no JVD, no carotid bruits, trachea midline, + pertinent finding (Kyphosis) Respiratory/Chest: chest non-tender, normal breath sounds, no respiratory distress, no accessory muscle use, + decreased breath sounds, + pertinent finding (Kyphosis) Cardiovascular: regular rate, rhythm, no edema, no gallop, no JVD, no murmur Abdomen: normal bowel sounds, non tender, soft, no organomegaly, no pulsatile mass Extremities: normal range of motion, non-tender, normal inspection, no pedal edema, no calf tenderness, normal capillary refill, pelvis stable Neurologic/Psychiatric: hydroelectric production manager II-XII nml as tested, no motor/sensory deficits, alert, normal mood/affect, oriented x 3 Skin: normal color, warm/dry, no rash Lymphatic: no adenopathy Laboratory Results Last 24 Hours Test 08/28/17 08:41 08/29/17 07:12 White Blood Count 10.77 K/uL 7.77 K/uL Red Blood Count 3.80 M/uL 3.65 M/uL Hemoglobin 12.0 g/dL 11.5 g/dL Hematocrit 35.9 % 34.1 % Mean Corpuscular Volume 94.5 fL 93.4 fL Mean Corpuscular Hemoglobin 31.6 pg 31.5 pg Mean Corpuscular Hemoglobin Concent 33.4 g/dl 33.7 g/dl Platelet Count 109 K/uL 107 K/uL Mean Platelet Volume 11.8 fL 11.6 fL Neutrophils (%) (Auto) 81.9 % 75.9 % Lymphocytes (%) (Auto) 9.6 % 11.5 % Monocytes (%) (Auto) 7.5 % 9.7 % Eosinophils (%) (Auto) 0.6 % 2.2 % Basophils (%) (Auto) 0.1 % 0.3 % Neutrophils # (Auto) 8.83 K/uL 5.91 K/uL Lymphocytes # (Auto) 1.03 K/uL 0.89 K/uL Monocytes # (Auto) 0.81 K/uL 0.75 K/uL Eosinophils # (Auto) 0.06 K/uL 0.17 K/uL Basophils # (Auto) 0.01 K/uL 0.02 K/uL RDW Standard Deviation 46.6 fL 45.9 fL RDW Coefficient of Variation 13.5 % 13.4 % Immature Granulocyte % (Auto) 0.3 % 0.4 % Immature Granulocyte # (Auto) 0.03 K/uL 0.03 K/uL Sodium Level 142 mmol/L 140 mmol/L Potassium Level 3.6 mmol/L 3.4 mmol/L Chloride Level 110 mmol/L 105 mmol/L Carbon Dioxide Level 22 mmol/L 25 mmol/L Anion Gap 10.0 mmol/L 9.0 mmol/L Blood Urea Nitrogen 10 mg/dl 12 mg/dl Creatinine 0.55 mg/dl 0.57 mg/dl Est Creatinine Clear Calc Drug Dose 69.5 ml/min 67.1 ml/min Estimated GFR () 114.1 112.4 Estimated GFR (Non- 98.4 97.0 BUN/Creatinine Ratio 18.2 20.2 Random Glucose 92 mg/dl 86 mg/dl Calcium Level 7.4 mg/dl 7.5 mg/dl Magnesium Level 1.9 mg/dl 2.1 mg/dl Assessment and Plan 82 y/o M who was admitted on 08/26/2017 with decreased responsiveness Decreased responsiveness upon admission: likely related to asp PNA possible is approaching to baseline Generalized weakness with ambulatory dysfunction, patient at home prior to admission was able to walk with cane or walker, not returned to baseline yet History of development delay in the retirement , nonverbal Metabolic encephalopathy in the setting of dehydration, hypophosphatemia, and aspiration pneumonia, possible approaching to baseline Hx of same and noted on CXR CT head neg for acute Continue antibiotic with Levaquin, Flagyl, breathing treatment, followed by instruction from speech, advance diet as tolerated, monitor electrolytes, Constipation no bowel movement for 2 days again, toma 1 dose now BPH: continue home meds STEMI/CVA: stable, not on aspirin/plavix/etc per caregiver Seizure hx: no meds for this as this was years ago Caregiver is specific that Valium is for mood only Mood disorder: cont holding valium/diazepam diet per speech recs: 1.Puree diet with thin liquids no straws 2.Pt. will need assistance with all p.o. intake 3.Aspiration precautions alternate consistencies, upright, alert, and willing to accept p.o. intake. 4.Safe swallow strategies small bites, small sips, slow rate 5.Discontinue feeding event of pt. has overt s/s of aspiration (coughing, wet vocal quality, difficulty swallowing) 6.Mouth care (clear mouth via brushing teeth and all surfaces) before p.o. intake if pt. will allow Other: DNR/DNI. Sister is POA if needed Heparin for DVT proph Pureed diet CM c/s for return to retirement on d/c if getting stronger, per caregiver they afraid patient not strong enough to return to retirement d/w' ed with sister Shabnam , he dose not want any aggressive, or heroic methods for patient Continued [facility] stay due to: home environment unsafe for pt Discharge planning: home
[2017-08-29] MEDS: NYSTATIN POWDER 15GM BTL EXT SCH ×2 (08:15→19:59)
[2017-08-29] MEDS ORDERED: POTASSIUM CHLORIDE 10 MEQ TABCR PO ONE (08:15)
[2017-08-29] MEDS: FINASTERIDE 5 MG TAB PO SCH (08:16)
[2017-08-29] MEDS: CARBAMIDE PEROXIDE 6.5% 15 ML BTL OT SCH ×2 (08:16→19:59)
[2017-08-29] MEDS: MELOXICAM 7.5 MG TAB PO SCH ×2 (08:17→19:58)
[2017-08-29] MEDS: HEPARIN SOD 5000 UNIT/0.5 ML CARP SQ SCH ×2 (08:19→20:00)
[2017-08-29] MEDS: MAGNESIUM HYDROXIDE SUSP 30 ML UDC PO SCH (08:35)
[2017-08-29] MEDS: DEXAMETHASONE CONC SOLN 3.75 MG, NYSTATIN SUSP 30 ML, DiphenhydrAMINE HCL SYRUP 300 MG,... PO SCH ×15 (09:52→21:15)
[2017-08-29] MEDS ORDERED: MAGIC MOUTHWASH PO SCH (12:00)
[2017-08-29] MEDS ORDERED: SENNA 8.8 MG/5 ML UDP PO ONE (15:45)
[2017-08-29] MEDS: CLOTRIMAZOLE 1% CR 15 GM TUBE EXT SCH (19:59)
[2017-08-29] MEDS: METRONIDAZOLE 0.75% TOPICAL GEL 45 GM TUBE TOP SCH (19:59)
[2017-08-30] MEDS: DEXAMETHASONE CONC SOLN 3.75 MG, NYSTATIN SUSP 30 ML, DiphenhydrAMINE HCL SYRUP 300 MG,... PO SCH ×20 (04:00→22:00)
[2017-08-30] MEDS: ALBUT/IPRATROP 3MG/0.5MG NEB 3 ML VIAL INH SCH ×4 (07:03→20:00)
[2017-08-30 07:17] VITALS: BP 146/74; PULSE 93; TEMP 37.4; O2SAT 95
[2017-08-30 07:59] LABS: CALCIUM 7.8 mg/dl (8.5-10.1); CREATININE 0.57 mg/dl (0.60-1.40); PHOSPHORUS 3.4 mg/dl (2.5-4.9); POTASSIUM 3.3 mmol/L (3.5-5.1)
[2017-08-30] MEDS: MAGNESIUM HYDROXIDE SUSP 30 ML UDC PO SCH (08:00)
[2017-08-30] MEDS: SENNA 8.8 MG/5 ML UDP PO SCH (08:13)
[2017-08-30] MEDS: NYSTATIN POWDER 15GM BTL EXT SCH ×2 (08:13→19:49)
[2017-08-30] MEDS: FINASTERIDE 5 MG TAB PO SCH (08:14)
[2017-08-30] MEDS: CARBAMIDE PEROXIDE 6.5% 15 ML BTL OT SCH ×2 (08:14→19:48)
[2017-08-30] MEDS: MELOXICAM 7.5 MG TAB PO SCH ×2 (08:14→19:58)
[2017-08-30] MEDS: HEPARIN SOD 5000 UNIT/0.5 ML CARP SQ SCH ×2 (08:20→19:51)
[2017-08-30] MEDS: LEVOFLOXACIN 750 MG TAB PO SCH (10:26)
[2017-08-30 11:09] VITALS: PULSE 81; O2SAT 93
[2017-08-30] MEDS ORDERED: BISACODYL 10 MG SUPP PR STA (14:29)
--- NOTE | 2017-08-30 14:36 | Progress Note ---
Subjective Date of Service: Aug 30, 2017. Subjective Pt evaluation today including: conversation w/ patient, physical exam, chart review, lab review, review of studies, conversation w/ building energy consultant, review of inpatient medication list Doing fair, occasional making noise, no spiking fever, no cough eating drinking , no bowel movement for 3 days, Problem List Medical Problems: (1) Aspiration pneumonitis Status: Acute (2) Chest wall injury Status: Acute (3) Facial laceration Status: Acute (4) Head trauma Status: Acute (5) Hypophosphatemia Status: Acute (6) Laceration of head Status: Acute (7) Leg abrasion Status: Acute (8) Neck contusion Status: Acute (9) Pneumonia Status: Acute (10) Pneumonia Status: Acute (11) Pneumonia Status: Acute Review of Systems Constitutional: + problem reported (Unable to obtain detailed because patient is nonverbal) Objective Vital Signs Date Time Temp Pulse Resp B/P (MAP) Pulse Ox O2 Delivery O2 Flow Rate FiO2 08/30/17 11:09 81 20 93 Room Air 08/30/17 08:15 Room Air 08/30/17 07:17 37.4 93 20 146/74 (98) 95 Room Air 08/29/17 23:28 37.3 94 20 144/79 (100) 96 Room Air 08/29/17 20:05 Room Air 08/29/17 18:58 81 20 93 Room Air 08/29/17 16:00 Room Air 08/29/17 14:59 36.5 88 20 124/69 (87) 96 Room Air Physical Exam General Appearance: WD/WN, no apparent distress Eyes: normal inspection, PERRL, EOMI, sclerae normal ENT: normal ENT inspection, hearing grossly normal, pharynx normal Neck: supple, no adenopathy, thyroid normal, no JVD, no carotid bruits, trachea midline Respiratory/Chest: chest non-tender, normal breath sounds, no respiratory distress, no accessory muscle use, + decreased breath sounds Cardiovascular: regular rate, rhythm, no edema, no gallop, no JVD, no murmur Abdomen: normal bowel sounds, non tender, soft, no organomegaly, no pulsatile mass Extremities: normal range of motion, non-tender, normal inspection, no pedal edema, no calf tenderness, normal capillary refill, pelvis stable Neurologic/Psychiatric: vice president safety II-XII nml as tested, no motor/sensory deficits, alert, normal mood/affect, oriented x 3 Skin: normal color, warm/dry, no rash Lymphatic: no adenopathy Laboratory Results Last 24 Hours Test 08/30/17 07:13 Sodium Level 141 mmol/L Potassium Level 3.3 mmol/L Chloride Level 106 mmol/L Carbon Dioxide Level 24 mmol/L Anion Gap 11.0 mmol/L Blood Urea Nitrogen 14 mg/dl Creatinine 0.57 mg/dl Est Creatinine Clear Calc Drug Dose 67.1 ml/min Estimated GFR () 112.4 Estimated GFR (Non- 97.0 BUN/Creatinine Ratio 25.1 Random Glucose 82 mg/dl Calcium Level 7.8 mg/dl Phosphorus Level 3.4 mg/dl Magnesium Level 2.2 mg/dl Assessment and Plan 82 y/o M who was admitted on 08/26/2017 with decreased responsiveness was found has possible aspiration pneumonia, Decreased responsiveness upon admission: likely related to asp PNA , possible is approaching to baseline asp PNA stable improving Generalized weakness with ambulatory dysfunction, patient at home prior to admission was able to walk with cane or walker, not returned to baseline yet History of development delay in the detention , nonverbal Metabolic encephalopathy in the setting of dehydration, hypophosphatemia, and aspiration pneumonia, possible approaching to baseline CT head neg for acute Continue antibiotic with Levaquin, Flagyl, breathing treatment, followed by instruction from speech, diet as tolerated, monitor electrolytes, Constipation no bowel movement for 3 days again, toma 1 dose was given, and suppository 1 BPH: continue home meds STEMI/CVA: stable, not on aspirin/plavix/etc per caregiver Seizure hx: no meds for this as this was years ago Caregiver is specific that Valium is for mood only Mood disorder: cont holding valium/diazepam diet per speech recs: 1.Puree diet with thin liquids no straws 2.Pt. will need assistance with all p.o. intake 3.Aspiration precautions alternate consistencies, upright, alert, and willing to accept p.o. intake. 4.Safe swallow strategies small bites, small sips, slow rate 5.Discontinue feeding event of pt. has overt s/s of aspiration (coughing, wet vocal quality, difficulty swallowing) 6.Mouth care (clear mouth via brushing teeth and all surfaces) before p.o. intake if pt. will allow Other: DNR/DNI. Sister is POA if needed Heparin for DVT proph Pureed diet CM c/s for return to detention on d/c if getting stronger, per caregiver they afraid patient not strong enough to return to detention, initially planning to have caregiver in the room when up and walking patient see if he approaching to baseline yet However so far caregiver not coming in, will continue follow-up, discharge plan Per PT OT and caregiver comfortable or not by returning back to detention d/w' ed with sister Shabnam , she dose not want any aggressive, or heroic methods for patient Continued [facility] stay due to: home environment unsafe for pt Discharge planning: home
[2017-08-30] MEDS ORDERED: LVQ750 PO (14:40)
[2017-08-30 14:54] VITALS: BP 143/66; PULSE 89; TEMP 37; O2SAT 96
[2017-08-30 14:57] VITALS: PULSE 86; O2SAT 94
[2017-08-30 14:58] VITALS: BP 124/74; PULSE 88; TEMP 37; O2SAT 94
[2017-08-30 16:21] VITALS: O2SAT 95
[2017-08-30] MEDS: METRONIDAZOLE 0.75% TOPICAL GEL 45 GM TUBE TOP SCH (19:48)
[2017-08-30] MEDS: CLOTRIMAZOLE 1% CR 15 GM TUBE EXT SCH (19:49)
[2017-08-31] VITALS (7 sets, daily range): BP systolic 132–157; BP diastolic 70–99; PULSE 67–105; TEMP 36.4–36.7; O2SAT 90–96
[2017-08-31] MEDS: DEXAMETHASONE CONC SOLN 3.75 MG, NYSTATIN SUSP 30 ML, DiphenhydrAMINE HCL SYRUP 300 MG,... PO SCH ×20 (04:00→22:00)
[2017-08-31] MEDS: ALBUT/IPRATROP 3MG/0.5MG NEB 3 ML VIAL INH SCH (07:28)
--- NOTE | 2017-08-31 08:26 | Progress Note ---
Subjective Date of Service: Aug 31, 2017. Subjective pt is not as agitated as described, I spoke to staff from his long-term who were at the bedside and stated that one month ago the pt had been much more active and able to perform adls with minimal help then has had significant decline Pt is non verbal and cannot participate in conversation to have ROS Problem List Medical Problems: (1) Aspiration pneumonitis Status: Acute (2) Chest wall injury Status: Acute (3) Facial laceration Status: Acute (4) Head trauma Status: Acute (5) Hypophosphatemia Status: Acute (6) Laceration of head Status: Acute (7) Leg abrasion Status: Acute (8) Neck contusion Status: Acute (9) Pneumonia Status: Acute (10) Pneumonia Status: Acute (11) Pneumonia Status: Acute Review of Systems Constitutional: + problem reported (non verbal and cannot have ROS) Objective Vital Signs Date Time Temp Pulse Resp B/P (MAP) Pulse Ox O2 Delivery O2 Flow Rate FiO2 08/31/17 07:44 36.4 86 20 143/71 (95) 95 Room Air 08/31/17 07:28 81 16 92 Room Air 08/31/17 00:36 36.7 93 18 157/99 (118) 96 Room Air 08/30/17 22:00 Room Air 08/30/17 16:21 95 Room Air 08/30/17 14:58 37.0 88 16 124/74 (91) 94 Room Air 08/30/17 14:57 86 15 94 Room Air 08/30/17 11:09 81 20 93 Room Air Physical Exam General Appearance: + mild distress, + thin Eyes: normal inspection, sclerae normal Respiratory/Chest: + decreased breath sounds (bases) Cardiovascular: regular rate, rhythm, + systolic murmur Abdomen: normal bowel sounds, non tender, soft Extremities: no pedal edema, no calf tenderness Neurologic/Psychiatric: alert, + disoriented Assessment and Plan 82 y/o M who was admitted on 08/26/2017 with decreased responsiveness was found to have aspiration pneumonia, metabolic encephalopathy secondary to aspiration PNA , resolving with treatment aspiration PNA improving, Levaquin, Flagyl, breathing treatment, diet per speech recs: 1.Puree diet with thin liquids no straws 2.Pt. will need assistance with all p.o. intake 3.Aspiration precautions alternate consistencies, upright, alert, and willing to accept p.o. intake. 4.Safe swallow strategies small bites, small sips, slow rate 5.Discontinue feeding event of pt. has overt s/s of aspiration (coughing, wet vocal quality, difficulty swallowing) 6.Mouth care (clear mouth via brushing teeth and all surfaces) before p.o. intake if pt. 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 Sister is POA if needed Heparin for DVT proph CM c/s for return to long-term on d/c if getting stronger, d/w' ed with sister Shabnam , she dose not want any aggressive, or heroic methods for patient, will discuss with family if appropriate to go back to long-term on comfort care Continued [facility] stay due to: home environment unsafe for pt Discharge planning: home
[2017-08-31] MEDS: NYSTATIN POWDER 15GM BTL EXT SCH ×2 (08:39→20:24)
[2017-08-31] MEDS: MAGNESIUM HYDROXIDE SUSP 30 ML UDC PO SCH (08:40)
[2017-08-31] MEDS: SENNA 8.8 MG/5 ML UDP PO SCH (08:40)
[2017-08-31] MEDS: FINASTERIDE 5 MG TAB PO SCH (08:40)
[2017-08-31] MEDS: HEPARIN SOD 5000 UNIT/0.5 ML CARP SQ SCH ×2 (08:42→20:23)
[2017-08-31] MEDS ORDERED: ALBUT/IPRATROP 3MG/0.5MG NEB 3 ML VIAL INH PRN (09:30)
[2017-08-31] MEDS ORDERED: NURSING VERBAL MED ORDER ONE (09:30)
[2017-08-31] MEDS: MELOXICAM 7.5 MG TAB PO SCH ×2 (10:10→20:18)
[2017-08-31] MEDS: POTASSIUM CHLORIDE 20 MEQ TABCR PO SCH (20:00)
[2017-08-31] MEDS: METRONIDAZOLE 0.75% TOPICAL GEL 45 GM TUBE TOP SCH (20:21)
[2017-08-31] MEDS: CLOTRIMAZOLE 1% CR 15 GM TUBE EXT SCH (20:24)
[2017-09-01] MEDS: DEXAMETHASONE CONC SOLN 3.75 MG, NYSTATIN SUSP 30 ML, DiphenhydrAMINE HCL SYRUP 300 MG,... PO SCH ×25 (04:00→21:32)
[2017-09-01 07:50] VITALS: BP 149/74; PULSE 86; TEMP 36.9
[2017-09-01 08:00] VITALS: O2SAT 96
[2017-09-01] MEDS: POTASSIUM CHLORIDE 20 MEQ TABCR PO SCH ×2 (08:00→20:00)
[2017-09-01] MEDS: MELOXICAM 7.5 MG TAB PO SCH ×2 (08:00→20:00)
[2017-09-01] MEDS: MAGNESIUM HYDROXIDE SUSP 30 ML UDC PO SCH (08:00)
[2017-09-01] MEDS: SENNA 8.8 MG/5 ML UDP PO SCH (08:00)
[2017-09-01] MEDS: FINASTERIDE 5 MG TAB PO SCH (08:00)
[2017-09-01] MEDS: NYSTATIN POWDER 15GM BTL EXT SCH ×2 (08:04→20:12)
[2017-09-01] MEDS: HEPARIN SOD 5000 UNIT/0.5 ML CARP SQ SCH ×2 (08:07→20:16)
--- NOTE | 2017-09-01 10:46 | Palliative Care Consultation ---
Consultation Date of Consultation: Sep 01, 2017. Requesting Physician: Dr. Nicholson Attending Physician: Dr. Nicholson Reason for Consultation: Goals of Care/Discharge planning History of Present Illness This is an 82 year old non verbal gentleman who resides at [facility], was brought to the ED by caregivers from [facility] as he had decreased responsiveness. The patient was diagnosed with aspiration PNA, which is not new to him. There have been previous discussions with the patients sister, who stated that they do not want any aggressive measures performed nor escalation of care. At this point, the patient is awake, alert, non-verbal at baseline, and appears, to have returned to baseline from a cognitive state. When I entered the room, he looked at me, grunted, and looked back at the television. He appears comfortable. One of the patients caregivers, Corine, was at the bedside, and stated that he appears back to his baseline. I reached out to the [facility] and spoke with Holley RODRÍGUEZ and Lidya , Director of recreational care. I updated them with his cognition improvement back to baseline and also discussed discharge planning. Lidya stated that this needs to be escalated to the CHEESE PROCESSOR of [facility] because if he would aspirate and pass away at the facility without the staff intervening, specific regulations need to met - so she wants to talk with the CHEESE PROCESSOR to discuss how this could be handled with Hospice on board. They did say that they have worked with Hospice before; however, it was a very specific disorder that was more clear of it being terminal. It was also suggested that the Office of Aging become involved for an evaluation while he is still in the hospital. I advised that I would pass all of the above information to Abril Virk with Case management and they stated they would follow up with her this afternoon. I do think that a functional PT/OT evaluation may be helpful for further clarification of needs, along with filling out a POLST form with the patients sister. I did reach out to the patients sister without success. Thank you kindly for this consultation, we will follow closely and accordingly. Past Medical/Surgical History Medical History: BPH STEMI Seizure Anxiety Aspiration PNA Social History Smoking Status: Never Smoker History of Alcohol Use: No Drug Use: none Marital Status: single Occupation Status: disabled Review of Systems Pt non verbal and unable to participate in ROS Allergies Coded Allergies: No Known Allergies (Verified , 08/26/17) Medications Current Inpatient Medications Medications (Trade) Dose Ordered Sig/Ilia Route Start Time Stop Time Status Last Admin Dose Admin Heparin Sodium (Porcine) (Heparin Sq 5000 Unit/0.5ml) 5,000 unit BID SQ 08/26/17 20:00 09/25/17 19:59 09/01/17 08:07 5,000 UNIT Magnesium Hydroxide (Milk Of Magnesia Susp) 30 ml Q6H PRN PO 08/26/17 16:45 09/25/17 16:44 Ondansetron HCl (Zofran Inj) 4 mg Q6H PRN IV 08/26/17 16:45 09/25/17 16:44 Acetaminophen (Tylenol Tab) 650 mg Q4 PRN PO 08/26/17 16:45 09/25/17 16:44 Clotrimazole (Lotrimin 1% Crm) 1 appln HS EXT 08/26/17 21:00 09/25/17 20:59 08/31/17 20:24 1 APPLN Fexofenadine HCl (Brittany Tab) 180 mg DAILY PRN PO 08/26/17 16:45 09/25/17 16:44 Finasteride (Proscar Tab) 5 mg QAM PO 08/27/17 08:00 09/26/17 08:59 08/31/17 08:40 5 MG Guaifenesin/ Dextromethorphan (Robitussin-Dm Syrup) 5 ml Q6 PRN PO 08/26/17 16:45 09/25/17 16:44 Magnesium Hydroxide (Milk Of Magnesia Susp) 15 ml DAILY PO 08/27/17 08:00 09/26/17 08:59 08/31/17 08:40 15 ML Magnesium Hydroxide (Milk Of Magnesia Susp) 30 ml DAILY PRN PO 08/26/17 16:45 09/25/17 16:44 Meloxicam (Mobic Tab) 7.5 mg BID PO 08/26/17 20:00 09/25/17 20:59 08/31/17 20:18 7.5 MG Metronidazole HCl (Metrogel Topical Gel) 1 appln HS TOP 08/26/17 21:00 09/05/17 20:59 08/31/17 20:21 1 APPLN Nystatin (Mycostatin Powder) 1 appln BID EXT 7/18/18 20:00 09/25/17 20:59 09/01/17 08:04 1 APPLN Al Hydrox/Mg Hydrox/Simethicone (Maalox Max Susp) 15 ml Q4 PRN PO 08/26/17 16:45 09/25/17 16:44 Miscellaneous Information (Order Awaiting Action) 1 ea QS N/A 08/27/17 00:00 09/26/17 00:00 Miscellaneous Information (Order Awaiting Action) 1 ea QS N/A 08/27/17 00:00 09/26/17 00:00 Loperamide HCl (Imodium Cap) 2 mg UD PRN PO 08/26/17 19:30 09/25/17 19:29 Senna (Senokot Syrup) 8.8 mg DAILY PO 08/27/17 08:00 09/26/17 07:59 08/31/17 08:40 8.8 MG Dexamethasone/ Nystatin/ Diphenhydramine HCl/Sucrose/ Microcrystalline Cellulose/Barcode Q6H PO 08/29/17 10:00 09/28/17 09:59 08/31/17 10:10 5 ML Levofloxacin (Levaquin Tab) 750 mg Q2D@11 PO 08/30/17 11:00 09/02/17 10:59 08/30/17 10:26 750 MG Potassium Chloride (Klor-Con Tab) 20 meq BID PO 08/31/17 20:00 09/01/17 20:01 Albuterol/ Ipratropium (Duoneb) 3 ml Q2R PRN INH 08/31/17 09:30 09/26/17 07:59 Physical Exam Date Time Temp Pulse Resp B/P (MAP) Pulse Ox O2 Delivery O2 Flow Rate FiO2 09/01/17 08:00 96 Room Air 09/01/17 07:50 36.9 86 16 149/74 (99) 09/01/17 00:00 Room Air 08/31/17 23:21 36.7 67 16 142/70 (94) 90 Room Air 08/31/17 16:30 96 Room Air 08/31/17 15:06 36.4 105 20 132/72 (92) 96 Room Air General Appearance: no apparent distress (sitting in his bed) Respiratory: chest non-tender, lungs clear, normal breath sounds, + decreased breath sounds Cardiovascular: regular rate, rhythm, no edema, no gallop Abdomen: normal bowel sounds, non tender, soft Neurologic/Psychiatric: + pertinent finding (eyes open and alert. pt non-verbal ) Skin: warm/dry Laboratory Results Last 24 Hours Test 09/01/17 08:18 Assessment & Plan Palliative Performance Scale: 40 % Palliative Care Recommendations: ADVANCED DIRECTIVE: Patient DNR and confirmed with patients sister that no heroic measures to be done. Will need to complete a POLST form with the patients sister prior to discharge. I reached out to her at [phone] but did not reach her. ASPIRATION PNA: Transitioning to more comfort measures without heroic intervention. -Puree diet with thin liquids no straws Pt. will need assistance with all p.o. intake -Aspiration precautions alternate consistencies, upright, alert, and willing to accept p.o. intake. -Safe swallow strategies small bites, small sips, slow rate -Discontinue feeding event of pt. has overt s/s of aspiration (coughing, wet vocal quality, difficulty swallowing) -Mouth care (clear mouth via brushing teeth and all surfaces) before p.o. intake if pt. will allow DISCHARGE PLANNING: -I reached out to the [facility] and spoke with Holley RODRÍGUEZ and Lidya, Director of recreational care. -I updated them with his cognition improvement back to baseline and also discussed discharge planning. -Lidya stated that this needs to be escalated to the CHEESE PROCESSOR of [employer] because if he would aspirate and pass away at the facility without the staff intervening, specific regulations need to met - so she wants to talk with the CHEESE PROCESSOR to discuss how this could be handled with Hospice on board. -They did say that they have worked with Hospice before; however, it was a very specific disorder that was more clear of it being terminal. -It was also suggested that the Office of Aging become involved for an evaluation while he is still in the hospital. -I advised that I would pass all of the above information to Abril Virk with Case management and they stated they would follow up with her this afternoon. Counseling and Coordination Total time spent 70 minutes with > 50% of that time spent reviewing the chart, assessing the patient, discussing discharge planning with IDT.
[2017-09-01] MEDS: LEVOFLOXACIN 750 MG TAB PO SCH (11:00)
--- NOTE | 2017-09-01 15:19 | Progress Note ---
Subjective Date of Service: Sep 01, 2017. Subjective Patient remains in his usual state however is physically less able to perform assistance in his activities of daily living. As mentioned in yesterday's note I did speak with a sister who is POA and we will progress towards attempting to place back in his care home on palliative care for recurrent aspiration pneumonia that is not amenable to intervention to reduce Problem List Medical Problems: (1) Aspiration pneumonitis Status: Acute (2) Chest wall injury Status: Acute (3) Facial laceration Status: Acute (4) Head trauma Status: Acute (5) Hypophosphatemia Status: Acute (6) Laceration of head Status: Acute (7) Leg abrasion Status: Acute (8) Neck contusion Status: Acute (9) Pneumonia Status: Acute (10) Pneumonia Status: Acute (11) Pneumonia Status: Acute Review of Systems Constitutional: + problem reported (Verbal and incapable of cooperating with the review of systems) Objective Vital Signs Date Time Temp Pulse Resp B/P (MAP) Pulse Ox O2 Delivery O2 Flow Rate FiO2 09/01/17 08:00 96 Room Air 09/01/17 07:50 36.9 86 16 149/74 (99) 09/01/17 00:00 Room Air 08/31/17 23:21 36.7 67 16 142/70 (94) 90 Room Air 08/31/17 16:30 96 Room Air Physical Exam General Appearance: + mild distress, + thin Eyes: normal inspection, sclerae normal Respiratory/Chest: no respiratory distress, + decreased breath sounds Cardiovascular: regular rate, rhythm, no murmur Abdomen: normal bowel sounds, soft Neurologic/Psychiatric: alert, + depressed affect, + disoriented Laboratory Results Last 24 Hours Test 09/01/17 08:18 Assessment and Plan 82 y/o M who was admitted on 08/26/2017 with decreased responsiveness was found to have aspiration pneumonia, metabolic encephalopathy secondary to aspiration PNA , resolving with treatment however cannot follow aspiration reduction precautions nor will he participate eating or taking medications at this time aspiration PNA improving, patient has been refusing medication and inhaled treatment diet per speech recs: Patient has great difficulty following these 1.Puree diet with thin liquids no straws 2.Pt. will need assistance with all p.o. intake 3.Aspiration precautions alternate consistencies, upright, alert, and willing to accept p.o. intake. 4.Safe swallow strategies small bites, small sips, slow rate 5.Discontinue feeding event of pt. has overt s/s of aspiration (coughing, wet vocal quality, difficulty swallowing) 6.Mouth care (clear mouth via brushing teeth and all surfaces) before p.o. intake if pt. 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 Sister is POA if needed Heparin for DVT proph CM c/s for return to care home on d/c if getting stronger, d/w' ed with sister Shabnam , she dose not want any aggressive, or heroic methods for patient, will discuss with family if appropriate to go back to care home on comfort care Continued [facility] stay due to: home environment unsafe for pt Discharge planning: home
[2017-09-01] MEDS: CLOTRIMAZOLE 1% CR 15 GM TUBE EXT SCH (20:12)
[2017-09-01] MEDS: METRONIDAZOLE 0.75% TOPICAL GEL 45 GM TUBE TOP SCH (20:13)
[2017-09-01 23:48] VITALS: BP 153/77; PULSE 87; TEMP 36.5; O2SAT 93
[2017-09-02] MEDS: DEXAMETHASONE CONC SOLN 3.75 MG, NYSTATIN SUSP 30 ML, DiphenhydrAMINE HCL SYRUP 300 MG,... PO SCH ×20 (03:54→22:00)
[2017-09-02] MEDS: MELOXICAM 7.5 MG TAB PO SCH ×3 (07:35→21:35)
[2017-09-02] MEDS: SENNA 8.8 MG/5 ML UDP PO SCH (07:36)
[2017-09-02] MEDS: FINASTERIDE 5 MG TAB PO SCH ×2 (07:36→12:18)
[2017-09-02] MEDS: NYSTATIN POWDER 15GM BTL EXT SCH ×2 (07:37→21:35)
[2017-09-02] MEDS: HEPARIN SOD 5000 UNIT/0.5 ML CARP SQ SCH ×2 (07:41→21:43)
[2017-09-02] MEDS: MAGNESIUM HYDROXIDE SUSP 30 ML UDC PO SCH (07:41)
[2017-09-02 08:01] VITALS: BP 136/76; PULSE 83; TEMP 36.4
[2017-09-02] MEDS ORDERED: LEVOFLOXACIN 750 MG TAB PO SCH (11:00)
--- NOTE | 2017-09-02 13:13 | Palliative Care Progress Note ---
Palliative Care Progress Note Date of Service Sep 02, 2017. Subjective Pt evaluation today including: conversation w/ patient, physical exam, chart review, conversation w/ color consultant (Dr. Nicholson) Review of Systems unable to obtain ROS due to altered mental status Objective Vital Signs Date Time Temp Pulse Resp B/P (MAP) Pulse Ox O2 Delivery O2 Flow Rate FiO2 09/02/17 08:01 36.4 83 16 136/76 (96) 09/02/17 00:30 Room Air 09/01/17 23:48 36.5 87 20 153/77 (102) 93 Room Air 09/01/17 16:54 Room Air Physical Exam General Appearance: no apparent distress, + thin ENT: hearing grossly normal Neck: supple, no JVD Respiratory/Chest: no respiratory distress, no accessory muscle use Cardiovascular: regular rate, rhythm, no edema Abdomen: normal bowel sounds, soft Neurologic/Psychiatric: alert, normal mood/affect (patient is at his baseline) Assessment and Plan Problem list: Aspiration pneumonia Developmental delay/disability Goals of care Palliative care recs: -Patient is DNR. -Patient was seen by palliative team in December 2016. POLST form was completed at that time by patient's sister Shabnam Steele as follows: DNR, comfort measures only, abx with comfort as the goal, no artificial hydration/nutrition. At that time, patient's sister was on board with comfort care and not returning to hospital for aspiration/aspiration pneumonia. -Need to see what patient's [facility]'s capabilities are. Case management is following closely-- waiting for call back from [facility] as they were checking with their KEYCASE ASSEMBLER and the state regulatory department to see if they are able to care for patient during end of life and provide comfort care. -Continue aspiration precautions as best as possible. -Uncertain of disposition at this time. If [facility] cannot care for patient, will need SNF. Total time spent 25 minutes with >50% of time spent at bedside with patient and on nursing unit collaborating with case management and MD. Palliative Performance Scale: 40 %
[2017-09-02 15:38] VITALS: BP 118/68; PULSE 81; TEMP 36.3; O2SAT 97
--- NOTE | 2017-09-02 15:38 | Progress Note ---
Subjective Date of Service: Sep 02, 2017. Subjective pt is confused and is agitated at times, he grunts responses and is uncooperative Problem List Medical Problems: (1) Aspiration pneumonitis Status: Acute (2) Chest wall injury Status: Acute (3) Facial laceration Status: Acute (4) Head trauma Status: Acute (5) Hypophosphatemia Status: Acute (6) Laceration of head Status: Acute (7) Leg abrasion Status: Acute (8) Neck contusion Status: Acute (9) Pneumonia Status: Acute (10) Pneumonia Status: Acute (11) Pneumonia Status: Acute Review of Systems Constitutional: + problem reported (cannot provide ROS) Objective Vital Signs Date Time Temp Pulse Resp B/P (MAP) Pulse Ox O2 Delivery O2 Flow Rate FiO2 09/02/17 08:01 36.4 83 16 136/76 (96) 09/02/17 00:30 Room Air 09/01/17 23:48 36.5 87 20 153/77 (102) 93 Room Air 09/01/17 16:54 Room Air Physical Exam General Appearance: + mild distress, + thin Neck: supple, no JVD Respiratory/Chest: chest non-tender, + decreased breath sounds, + accessory muscle use Cardiovascular: regular rate, rhythm, no murmur Abdomen: normal bowel sounds, non tender, soft Extremities: no pedal edema, no calf tenderness Neurologic/Psychiatric: alert, + depressed affect, + disoriented Assessment and Plan 82 y/o M who was admitted on 08/26/2017 with decreased responsiveness was found to have aspiration pneumonia, family would like to pursue comfort care after this treatment, we are working to have pt return to his senior care on hospice metabolic encephalopathy secondary to aspiration PNA , resolving with treatment however cannot follow aspiration reduction precautions nor will he participate eating or taking medications at this time aspiration PNA improving, patient has been refusing medication and inhaled treatment diet per speech recs: Patient has great difficulty following these 1.Puree diet with thin liquids no straws 2.Pt. will need assistance with all p.o. intake 3.Aspiration precautions alternate consistencies, upright, alert, and willing to accept p.o. intake. 4.Safe swallow strategies small bites, small sips, slow rate 5.Discontinue feeding event of pt. has overt s/s of aspiration (coughing, wet vocal quality, difficulty swallowing) 6.Mouth care (clear mouth via brushing teeth and all surfaces) before p.o. intake if pt. will allow Generalized weakness with ambulatory dysfunction, patient at senior care I do not feel he will return to his baseline soon and his intellectual delay will prevent meaningful rehab potential Constipation senna 1 dose was given, and suppository 1 BPH: continue home meds STEMI/CVA: stable, not on aspirin/plavix/etc per caregiver Seizure hx: no meds for this no recent events, Caregiver has stated that Valium is for mood only Mood disorder: cont holding valium/diazepam Other: DNR/DNI. Sister is andrew TANG she supports comfort measures in the future ,as he has chronic recurrent aspiration that cannot be improved and will develop another pneumonia i n the future Heparin for DVT proph CM c/s for return to senior care on d/c if hospice care in that situation is permitted,
[2017-09-02 16:33] VITALS: O2SAT 97
[2017-09-02] MEDS: CLOTRIMAZOLE 1% CR 15 GM TUBE EXT SCH (21:35)
[2017-09-02] MEDS: METRONIDAZOLE 0.75% TOPICAL GEL 45 GM TUBE TOP SCH (21:35)
[2017-09-02 23:01] VITALS: BP 121/66; PULSE 75; TEMP 36.6; O2SAT 96
[2017-09-03] MEDS: DEXAMETHASONE CONC SOLN 3.75 MG, NYSTATIN SUSP 30 ML, DiphenhydrAMINE HCL SYRUP 300 MG,... PO SCH ×20 (03:41→21:43)
[2017-09-03 07:30] VITALS: BP 111/65; PULSE 77; TEMP 36.1; O2SAT 96
[2017-09-03] MEDS: MELOXICAM 7.5 MG TAB PO SCH ×2 (08:43→20:00)
[2017-09-03] MEDS: SENNA 8.8 MG/5 ML UDP PO SCH (08:44)
[2017-09-03] MEDS: MAGNESIUM HYDROXIDE SUSP 30 ML UDC PO SCH (08:45)
[2017-09-03] MEDS: FINASTERIDE 5 MG TAB PO SCH (08:45)
[2017-09-03] MEDS: NYSTATIN POWDER 15GM BTL EXT SCH ×2 (08:46→20:00)
[2017-09-03] MEDS: HEPARIN SOD 5000 UNIT/0.5 ML CARP SQ SCH ×2 (08:47→21:42)
--- NOTE | 2017-09-03 09:44 | Palliative Care Progress Note ---
Palliative Care Progress Note Date of Service Sep 03, 2017. Subjective Pt evaluation today including: conversation w/ patient, conversation w/ family (sister, Shabnam Steele), physical exam, chart review Pain: no obvious signs of pain Patient is in his usual state today. Speech too difficult to understand. Awake in his bed this morning when I saw him. SPoke with his sister Shabnam on phone for quite a while today. She is also communicating with patient's halfway. Shabnam stated, "I just want him to be able to go back to his home, be comfortable, eat what he wants, and there." She remembers completing the polst form with me back in December 2016 and stated it does not need to be changed. Review of Systems unable to obtain ROS due to patient condition Objective Vital Signs Date Time Temp Pulse Resp B/P (MAP) Pulse Ox O2 Delivery O2 Flow Rate FiO2 09/03/17 07:30 36.1 77 18 111/65 (80) 96 Room Air 09/03/17 00:35 Room Air 09/02/17 23:01 36.6 75 20 121/66 (84) 96 Room Air 09/02/17 16:33 97 Room Air 09/02/17 15:38 36.3 81 20 118/68 (85) 97 Room Air Physical Exam General Appearance: no apparent distress, + thin ENT: hearing grossly normal Neck: supple, no JVD Respiratory/Chest: no respiratory distress, no accessory muscle use Cardiovascular: regular rate, rhythm, no edema Abdomen: normal bowel sounds, soft Neurologic/Psychiatric: alert, + pertinent finding (mostly nonverbal) Assessment and Plan Problem list: Aspiration pneumonia Developmental delay/disability Goals of care Palliative care recs: -Patient is DNR. -Patient was seen by palliative team in December 2016. POLST form was completed at that time by patient's sister Shabnam Steele as follows: DNR, comfort measures only, abx with comfort as the goal, no artificial hydration/nutrition. At that time, patient's sister was on board with comfort care and not returning to hospital for aspiration/aspiration pneumonia. -I spoke with patient's sister again on 09/03/17- her wishes remain the same-- for COMFORT MEASURES ONLY. She does not want patient to return to the hospital for any life-prolonging treatment. She wants him to be comfortable at his halfway and if something happens again, wants him to have end of life care. -Need to see what patient's halfway's capabilities are. Case management is following closely-- waiting for call back from halfway as they were checking with their HEAD START TEACHER and the state regulatory department to see if they are able to care for patient during end of life and provide comfort care. Shabnam spoke with them 09/02/17 and they stated they were still waiting to hear. -Continue aspiration precautions as best as possible. -Uncertain of disposition at this time. If halfway cannot care for patient, will need SNF. Total time spent 35 minutes with >50% of time spent at bedside with patient, on phone with patient's sister discussing goals of care, and on nursing unit collaborating with case management and MD. Palliative Performance Scale: 40 % Discharge planning: uncertain
[2017-09-03 15:04] VITALS: BP 112/60; PULSE 75; TEMP 36.1
--- NOTE | 2017-09-03 15:50 | Progress Note ---
Subjective Date of Service: Sep 03, 2017. Subjective pt is non verbal is sitting in chair today Problem List Medical Problems: (1) Aspiration pneumonitis Status: Acute (2) Chest wall injury Status: Acute (3) Facial laceration Status: Acute (4) Head trauma Status: Acute (5) Hypophosphatemia Status: Acute (6) Laceration of head Status: Acute (7) Leg abrasion Status: Acute (8) Neck contusion Status: Acute (9) Pneumonia Status: Acute (10) Pneumonia Status: Acute (11) Pneumonia Status: Acute Review of Systems Constitutional: + weakness, + fatigue, No fever, No chills cannot provide full ROS as is non verbal Objective Vital Signs Date Time Temp Pulse Resp B/P (MAP) Pulse Ox O2 Delivery O2 Flow Rate FiO2 09/03/17 15:04 36.1 75 18 112/60 (77) Room Air 09/03/17 08:45 Room Air 09/03/17 07:30 36.1 77 18 111/65 (80) 96 Room Air 09/03/17 00:35 Room Air 09/02/17 23:01 36.6 75 20 121/66 (84) 96 Room Air 09/02/17 16:33 97 Room Air Physical Exam General Appearance: WD/WN, + mild distress Eyes: normal inspection, sclerae normal Neck: supple, trachea midline Respiratory/Chest: chest non-tender, lungs clear Abdomen: normal bowel sounds, non tender, soft Extremities: no pedal edema, no calf tenderness Neurologic/Psychiatric: alert, + depressed affect Assessment and Plan 82 y/o M who was admitted on 08/26/2017 with decreased responsiveness was found to have aspiration pneumonia, family would like to pursue comfort care after this treatment, we are working [facility] no new changes in his care awaiting placement metabolic encephalopathy secondary to aspiration PNA , resolving with treatment however cannot follow aspiration reduction precautions nor will he participate eating or taking medications at this time aspiration PNA improving, patient has been refusing medication and inhaled treatment diet per speech recs: Patient has great difficulty following these 1.Puree diet with thin liquids no straws 2.Pt. will need assistance with all p.o. intake 3.Aspiration precautions alternate consistencies, upright, alert, and willing to accept p.o. intake. 4.Safe swallow strategies small bites, small sips, slow rate 5.Discontinue feeding event of pt. has overt s/s of aspiration (coughing, wet vocal quality, difficulty swallowing) 6.Mouth care (clear mouth via brushing teeth and all surfaces) before p.o. intake if pt. will allow Generalized weakness with ambulatory dysfunction, [facility] I do not feel he will return to his baseline soon and his intellectual delay will prevent meaningful rehab potential Constipation senna 1 dose was given, and suppository 1 BPH: continue home meds STEMI/CVA: stable, not on aspirin/plavix/etc per caregiver Seizure hx: no meds for this no recent events, Caregiver has stated that Valium is for mood only Mood disorder: cont holding valium/diazepam Other: DNR/DNI. Sister is andrew TANG she supports comfort measures in the future ,as he has chronic recurrent aspiration that cannot be improved and will develop another pneumonia i n the future Heparin for DVT proph CM c/s for [facility]/c if hospice care in that situation is permitted, Discharge planning: uncertain
[2017-09-03 16:00] VITALS: O2SAT 96
[2017-09-03] MEDS: METRONIDAZOLE 0.75% TOPICAL GEL 45 GM TUBE TOP SCH (21:00)
[2017-09-03] MEDS: CLOTRIMAZOLE 1% CR 15 GM TUBE EXT SCH (21:00)
[2017-09-03 23:05] VITALS: BP 129/61; PULSE 71; TEMP 36.5; O2SAT 90
[2017-09-04] MEDS: DEXAMETHASONE CONC SOLN 3.75 MG, NYSTATIN SUSP 30 ML, DiphenhydrAMINE HCL SYRUP 300 MG,... PO SCH ×20 (04:00→19:43)
[2017-09-04 06:04] LABS: HEMATOCRIT 36.4 % (42-52); HEMOGLOBIN 12.2 g/dL (14.0-18.0); MEAN CELL VOLUME 93.8 fL (80-100); MEAN CORPUSCULAR HEMOGLOBIN 31.4 pg (25-34); MEAN CORPUSCULAR HGB CONC 33.5 g/dl (32-36); MEAN PLATELET VOLUME 11.2 fL (7.4-10.4); PLATELET COUNT 163 K/uL (130-400); RED CELL DISTRIBUTION WIDTH CV 13.3 % (11.5-14.5); RED CELL DISTRIBUTION WIDTH SD 45.2 fL (36.4-46.3); WHITE BLOOD COUNT 5.53 K/uL (4.8-10.8)
[2017-09-04 07:52] VITALS: BP 107/66; PULSE 72; TEMP 36.3; O2SAT 94
[2017-09-04] MEDS ORDERED: SENNA 17.6 MG/10 ML UDP PO SCH (08:00)
[2017-09-04] MEDS: MAGNESIUM HYDROXIDE SUSP 30 ML UDC PO SCH (08:00)
[2017-09-04] MEDS: HEPARIN SOD 5000 UNIT/0.5 ML CARP SQ SCH ×2 (08:00→19:40)
[2017-09-04] MEDS: FINASTERIDE 5 MG TAB PO SCH (09:04)
[2017-09-04] MEDS: SENNA 17.6 MG/10 ML UDP PO SCH (09:04)
[2017-09-04] MEDS: MELOXICAM 7.5 MG TAB PO SCH ×2 (09:05→19:42)
[2017-09-04] MEDS: NYSTATIN POWDER 15GM BTL EXT SCH ×2 (09:09→19:42)
[2017-09-04 15:21] VITALS: BP 114/70; PULSE 70; TEMP 36.1
--- NOTE | 2017-09-04 16:14 | Progress Note ---
Subjective Date of Service: Sep 04, 2017. Subjective pleasantly confused and according to caregivers is about his baseline Problem List Medical Problems: (1) Aspiration pneumonitis Status: Acute (2) Chest wall injury Status: Acute (3) Facial laceration Status: Acute (4) Head trauma Status: Acute (5) Hypophosphatemia Status: Acute (6) Laceration of head Status: Acute (7) Leg abrasion Status: Acute (8) Neck contusion Status: Acute (9) Pneumonia Status: Acute (10) Pneumonia Status: Acute (11) Pneumonia Status: Acute Review of Systems Constitutional: + problem reported (cannot perfrom ROS due to non verbal state) Objective Vital Signs Date Time Temp Pulse Resp B/P (MAP) Pulse Ox O2 Delivery O2 Flow Rate FiO2 09/04/17 15:21 36.1 70 20 114/70 (85) Room Air 09/04/17 08:00 Room Air 09/04/17 07:52 36.3 72 18 107/66 (80) 94 Room Air 09/03/17 23:05 36.5 71 22 129/61 (83) 90 09/03/17 20:30 Room Air Physical Exam General Appearance: + mild distress, + thin Eyes: normal inspection, sclerae normal Respiratory/Chest: chest non-tender, lungs clear, normal breath sounds Cardiovascular: regular rate, rhythm, no murmur Abdomen: normal bowel sounds, soft Neurologic/Psychiatric: alert, + disoriented Laboratory Results Last 24 Hours Test 09/04/17 05:39 White Blood Count 5.53 K/uL Red Blood Count 3.88 M/uL Hemoglobin 12.2 g/dL Hematocrit 36.4 % Mean Corpuscular Volume 93.8 fL Mean Corpuscular Hemoglobin 31.4 pg Mean Corpuscular Hemoglobin Concent 33.5 g/dl RDW Standard Deviation 45.2 fL RDW Coefficient of Variation 13.3 % Platelet Count 163 K/uL Mean Platelet Volume 11.2 fL Assessment and Plan 82 y/o M who was admitted on 08/26/2017 with decreased responsiveness was found to have aspiration pneumonia, family would like to pursue comfort care after this treatment, we are working to have pt return to his custodial either with or without hospice no new changes in his care awaiting placement metabolic encephalopathy secondary to aspiration PNA , resolving with treatment however cannot follow aspiration reduction precautions nor will he participate eating or taking medications at this time aspiration PNA improving, patient has been refusing medication and inhaled treatment diet per speech recs: Patient has great difficulty following these 1.Puree diet with thin liquids no straws 2.Pt. will need assistance with all p.o. intake 3.Aspiration precautions alternate consistencies, upright, alert, and willing to accept p.o. intake. 4.Safe swallow strategies small bites, small sips, slow rate 5.Discontinue feeding event of pt. has overt s/s of aspiration (coughing, wet vocal quality, difficulty swallowing) 6.Mouth care (clear mouth via brushing teeth and all surfaces) before p.o. intake if pt. will allow Generalized weakness with ambulatory dysfunction, patient at custodial I do not feel he will return to his baseline soon and his intellectual delay will prevent meaningful rehab potential Constipation senna 1 dose was given, and suppository 1 BPH: continue home meds STEMI/CVA: stable, not on aspirin/plavix/etc per caregiver Seizure hx: no meds for this no recent events, Caregiver has stated that Valium is for mood only Mood disorder: cont holding valium/diazepam Other: DNR/DNI. Sister is andrew TANG she supports comfort measures in the future ,as he has chronic recurrent aspiration that cannot be improved and will develop another pneumonia i n the future Heparin for DVT proph CM c/s for return to custodial on d/c if hospice care in that situation is permitted, Discharge planning: uncertain
[2017-09-04] MEDS: METRONIDAZOLE 0.75% TOPICAL GEL 45 GM TUBE TOP SCH (19:42)
[2017-09-04] MEDS: CLOTRIMAZOLE 1% CR 15 GM TUBE EXT SCH (19:42)
[2017-09-04 22:49] VITALS: BP 153/66; PULSE 81; TEMP 36.5; O2SAT 93
[2017-09-05 08:08] VITALS: BP 115/71; PULSE 77; TEMP 36.5; O2SAT 93
[2017-09-05] MEDS: DEXAMETHASONE CONC SOLN 3.75 MG, NYSTATIN SUSP 30 ML, DiphenhydrAMINE HCL SYRUP 300 MG,... PO SCH ×20 (09:27→21:52)
[2017-09-05] MEDS: MAGNESIUM HYDROXIDE SUSP 30 ML UDC PO SCH (09:28)
[2017-09-05] MEDS: NYSTATIN POWDER 15GM BTL EXT SCH ×2 (09:30→21:51)
[2017-09-05] MEDS: HEPARIN SOD 5000 UNIT/0.5 ML CARP SQ SCH ×2 (09:45→21:51)
[2017-09-05] MEDS: SENNA 17.6 MG/10 ML UDP PO SCH (09:46)
[2017-09-05] MEDS: FINASTERIDE 5 MG TAB PO SCH (09:46)
[2017-09-05] MEDS: MELOXICAM 7.5 MG TAB PO SCH ×2 (09:46→21:56)
--- NOTE | 2017-09-05 14:58 | Progress Note ---
Subjective Date of Service: Sep 05, 2017. Subjective this pt is about the same we are awaiting family meeting on thursday 09/07 Problem List Medical Problems: (1) Aspiration pneumonitis Status: Acute (2) Chest wall injury Status: Acute (3) Facial laceration Status: Acute (4) Head trauma Status: Acute (5) Hypophosphatemia Status: Acute (6) Laceration of head Status: Acute (7) Leg abrasion Status: Acute (8) Neck contusion Status: Acute (9) Pneumonia Status: Acute (10) Pneumonia Status: Acute (11) Pneumonia Status: Acute Review of Systems Constitutional: + weakness, + fatigue Respiratory: + cough, + sputum, No shortness of breath, No dyspnea on exertion Cardiac: No chest pain, No edema Abdomen: No pain, No nausea, No vomiting, No diarrhea Male : No dysuria, No urinary frequency Psychiatric: No depression symptoms, No anhedonism Objective Vital Signs Date Time Temp Pulse Resp B/P (MAP) Pulse Ox O2 Delivery O2 Flow Rate FiO2 09/05/17 09:45 Room Air 09/05/17 08:08 36.5 77 18 115/71 (86) 93 09/05/17 00:10 Room Air 09/04/17 22:49 36.5 81 18 153/66 (95) 93 Room Air 09/04/17 15:21 36.1 70 20 114/70 (85) Room Air Physical Exam General Appearance: + mild distress, + thin Eyes: normal inspection, sclerae normal Neck: supple, no JVD Respiratory/Chest: chest non-tender, lungs clear Cardiovascular: regular rate, rhythm, no murmur Abdomen: normal bowel sounds, non tender, soft Extremities: no pedal edema, no calf tenderness Neurologic/Psychiatric: alert, + depressed affect Assessment and Plan 82 y/o M who was admitted on 08/26/2017 with decreased responsiveness was found to have aspiration pneumonia, family would like to pursue comfort care after this treatment, we are working to have pt return to his senior care either with or without hospice no new changes in his care awaiting placement, will have family meeting this week metabolic encephalopathy secondary to aspiration PNA , resolving with treatment however cannot follow aspiration reduction precautions nor will he participate eating or taking medications at this time aspiration PNA improving, patient has been refusing medication and inhaled treatment diet per speech recs: Patient has great difficulty following these 1.Puree diet with thin liquids no straws 2.Pt. will need assistance with all p.o. intake 3.Aspiration precautions alternate consistencies, upright, alert, and willing to accept p.o. intake. 4.Safe swallow strategies small bites, small sips, slow rate 5.Discontinue feeding event of pt. has overt s/s of aspiration (coughing, wet vocal quality, difficulty swallowing) 6.Mouth care (clear mouth via brushing teeth and all surfaces) before p.o. intake if pt. will allow Generalized weakness with ambulatory dysfunction, patient at senior care I do not feel he will return to his baseline soon and his intellectual delay will prevent meaningful rehab potential Constipation senna 1 dose was given, and suppository 1 BPH: continue home meds STEMI/CVA: stable, not on aspirin/plavix/etc per caregiver Seizure hx: no meds for this no recent events, Caregiver has stated that Valium is for mood only Mood disorder: cont holding valium/diazepam Other: DNR/DNI. Sister is andrew TANG she supports comfort measures in the future ,as he has chronic recurrent aspiration that cannot be improved and will develop another pneumonia i n the future Heparin for DVT proph CM c/s for return to senior care on d/c if hospice care in that situation is permitted, Discharge planning: uncertain
[2017-09-05 15:28] VITALS: BP 111/64; TEMP 36
[2017-09-05] MEDS: CLOTRIMAZOLE 1% CR 15 GM TUBE EXT SCH (21:52)
[2017-09-05 22:44] VITALS: TEMP 36
[2017-09-06] MEDS: DEXAMETHASONE CONC SOLN 3.75 MG, NYSTATIN SUSP 30 ML, DiphenhydrAMINE HCL SYRUP 300 MG,... PO SCH ×20 (04:00→22:00)
[2017-09-06 07:24] VITALS: BP 98/57; PULSE 83; TEMP 36.3; O2SAT 95
[2017-09-06] MEDS: MELOXICAM 7.5 MG TAB PO SCH ×2 (07:54→20:24)
[2017-09-06] MEDS: FINASTERIDE 5 MG TAB PO SCH (07:54)
[2017-09-06] MEDS: HEPARIN SOD 5000 UNIT/0.5 ML CARP SQ SCH ×2 (07:58→20:26)
[2017-09-06] MEDS: NYSTATIN POWDER 15GM BTL EXT SCH ×2 (07:59→20:24)
[2017-09-06] MEDS: SENNA 17.6 MG/10 ML UDP PO SCH (08:00)
[2017-09-06] MEDS: MAGNESIUM HYDROXIDE SUSP 30 ML UDC PO SCH (08:00)
--- NOTE | 2017-09-06 13:03 | Progress Note ---
Subjective Date of Service: Sep 06, 2017. Subjective Pt evaluation today including: conversation w/ patient, physical exam, chart review, lab review, review of studies, review of inpatient medication list Up to wheelchair, moving around himself in and out the room, nonverbal, answer simple questions Problem List Medical Problems: (1) Aspiration pneumonitis Status: Acute (2) Chest wall injury Status: Acute (3) Facial laceration Status: Acute (4) Head trauma Status: Acute (5) Hypophosphatemia Status: Acute (6) Laceration of head Status: Acute (7) Leg abrasion Status: Acute (8) Neck contusion Status: Acute (9) Pneumonia Status: Acute (10) Pneumonia Status: Acute (11) Pneumonia Status: Acute Review of Systems Constitutional: + problem reported (On the detail was not able to obtain, however no fever and chills) Objective Vital Signs Date Time Temp Pulse Resp B/P (MAP) Pulse Ox O2 Delivery O2 Flow Rate FiO2 09/06/17 08:30 Room Air 09/06/17 07:24 36.3 83 16 98/57 (71) 95 Room Air 09/05/17 22:44 36.0 09/05/17 20:00 Room Air 09/05/17 15:28 36.0 111/64 (80) Physical Exam General Appearance: WD/WN, no apparent distress, + thin, + pertinent finding ( Frail,) Eyes: normal inspection, PERRL, EOMI, sclerae normal ENT: normal ENT inspection, hearing grossly normal, pharynx normal Neck: supple, no adenopathy, thyroid normal, no JVD, no carotid bruits, trachea midline Respiratory/Chest: chest non-tender, normal breath sounds, no respiratory distress, no accessory muscle use, + decreased breath sounds, + pertinent finding (Kyphosis,) Cardiovascular: regular rate, rhythm, no edema, no gallop, no JVD, no murmur Abdomen: normal bowel sounds, non tender, soft, no organomegaly, no pulsatile mass Extremities: normal range of motion, non-tender, normal inspection, no pedal edema, no calf tenderness, normal capillary refill, pelvis stable 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, no motor/sensory deficits, alert, normal mood/affect, oriented x 3 Skin: normal color, warm/dry, no rash Lymphatic: no adenopathy Assessment and Plan 82 y/o M who was admitted on 08/26/2017 with decreased responsiveness was found has possible aspiration pneumonia, Decreased responsiveness upon admission: likely related to asp PNA , possible is approaching to baseline asp PNA stable, resolved, has completed full course of antibiotic treatment Generalized weakness with ambulatory dysfunction, patient at home prior to admission was able to walk with cane or walker, in baseline [facility] of [facility] in the [facility] , nonverbal Metabolic encephalopathy in the setting of dehydration, hypophosphatemia, and aspiration pneumonia, resolved CT head neg for acute BPH: continue home meds STEMI/CVA: stable, not on aspirin/plavix/etc per caregiver Seizure hx: no meds for this as this was years ago, Caregiver is specific that Valium is for mood only Mood disorder: cont holding valium/diazepam diet per speech recs: 1.Puree diet with thin liquids no straws 2.Pt. will need assistance with all p.o. intake 3.Aspiration precautions alternate consistencies, upright, alert, and willing to accept p.o. intake. 4.Safe swallow strategies small bites, small sips, slow rate 5.Discontinue feeding event of pt. has overt s/s of aspiration (coughing, wet vocal quality, difficulty swallowing) 6.Mouth care (clear mouth via brushing teeth and all surfaces) before p.o. intake if pt. will allow Other: DNR/DNI. Sister is POA if needed Heparin for DVT proph Pureed diet CM c/s for return to [facility] on d/c Also talked about [facility] hospice care or not, patient's sister is Shabnam, Shabnam told me in one conversation Shabnam want patient to be comfortable care, there is arranged a meeting tomorrow per sr. social media & mobile manager and [facility], Patient medically ready to release back to the [facility] or [facility] with hosp[facility] care Continued [facility] stay due to: home environment unsafe for pt Discharge planning: home
[2017-09-06 15:36] VITALS: BP 115/65; PULSE 76
[2017-09-06] MEDS: CLOTRIMAZOLE 1% CR 15 GM TUBE EXT SCH (20:25)
[2017-09-06 22:47] VITALS: BP 147/79
[2017-09-07] MEDS: DEXAMETHASONE CONC SOLN 3.75 MG, NYSTATIN SUSP 30 ML, DiphenhydrAMINE HCL SYRUP 300 MG,... PO SCH ×20 (04:00→22:00)
[2017-09-07 06:36] LABS: HEMATOCRIT 39.4 % (42-52); HEMOGLOBIN 13.1 g/dL (14.0-18.0); MEAN CELL VOLUME 94.3 fL (80-100); MEAN CORPUSCULAR HEMOGLOBIN 31.3 pg (25-34); MEAN CORPUSCULAR HGB CONC 33.2 g/dl (32-36); MEAN PLATELET VOLUME 11.3 fL (7.4-10.4); PLATELET COUNT 182 K/uL (130-400); RED CELL DISTRIBUTION WIDTH CV 13.6 % (11.5-14.5); RED CELL DISTRIBUTION WIDTH SD 46.1 fL (36.4-46.3)
[2017-09-07 06:56] VITALS: BP 105/56; PULSE 79; TEMP 36.2; O2SAT 96
[2017-09-07] MEDS: FINASTERIDE 5 MG TAB PO SCH ×2 (08:06→14:53)
[2017-09-07] MEDS: SENNA 17.6 MG/10 ML UDP PO SCH (08:06)
[2017-09-07] MEDS: MELOXICAM 7.5 MG TAB PO SCH ×3 (08:06→20:38)
[2017-09-07] MEDS: NYSTATIN POWDER 15GM BTL EXT SCH ×2 (08:06→20:38)
[2017-09-07] MEDS: HEPARIN SOD 5000 UNIT/0.5 ML CARP SQ SCH ×2 (08:07→20:49)
[2017-09-07] MEDS: POTASSIUM CHLORIDE 20 MEQ TABCR PO STA ×2 (09:03→14:54)
[2017-09-07] MEDS: MAGNESIUM HYDROXIDE SUSP 30 ML UDC PO SCH (11:31)
--- NOTE | 2017-09-07 15:46 | Palliative Care Progress Note ---
Palliative Care Progress Note Date of Service Sep 07, 2017. Subjective Pt evaluation today including: conversation w/ family (sister, Shabnam Steele), physical exam, chart review, conversation w/ technology methodology consultant (Dr. Maldonado) Lengthy discussions held today with case management as well as patient's sister , Shabnam Steele. There was a meeting with case management, patient family including sister and two nieces, and fpc director. Review of Systems unable to obtain due to patient condition Objective Vital Signs Date Time Temp Pulse Resp B/P (MAP) Pulse Ox O2 Delivery O2 Flow Rate FiO2 09/07/17 10:38 Room Air 09/07/17 06:56 36.2 79 18 105/56 (72) 96 Room Air 09/07/17 00:00 Room Air 09/06/17 22:47 147/79 (101) 09/06/17 21:08 Room Air 09/06/17 16:00 Room Air Physical Exam General Appearance: no apparent distress, + pertinent finding (frail, elderly) ENT: hearing grossly normal Neck: supple, no JVD Respiratory/Chest: no respiratory distress, no accessory muscle use, + pertinent finding (room air) Cardiovascular: regular rate, rhythm, no edema Abdomen: normal bowel sounds, soft Neurologic/Psychiatric: alert, + disoriented, + pertinent finding ( intellectual disability at baseline) Skin: normal color Laboratory Results Last 24 Hours Test 09/07/17 06:14 White Blood Count 7.50 K/uL Red Blood Count 4.18 M/uL Hemoglobin 13.1 g/dL Hematocrit 39.4 % Mean Corpuscular Volume 94.3 fL Mean Corpuscular Hemoglobin 31.3 pg Mean Corpuscular Hemoglobin Concent 33.2 g/dl RDW Standard Deviation 46.1 fL RDW Coefficient of Variation 13.6 % Platelet Count 182 K/uL Mean Platelet Volume 11.3 fL Assessment and Plan Problem list: Aspiration pneumonia Developmental delay/intellectual disability Goals of care Palliative care recs: -Patient was seen by palliative team in December 2016. POLST form was completed at that time by patient's sister Shabnam Steele as follows: DNR, comfort measures only, abx with comfort as the goal, no artificial hydration/nutrition. At that time, patient's sister was on board with comfort care and not returning to hospital for aspiration/aspiration pneumonia. -I spoke with patient's sister again on 09/03/17 and again today 09/07/17- her wishes remain the same-- for COMFORT MEASURES ONLY. She does not want patient to return to the hospital for any life-prolonging treatment. She wants him to be comfortable at his fpc and if something happens again, wants him to have end of life care. -Furthermore, patient's sister remains adamant when I spoke with her after the meeting held today with case management and fpc that she DOES NOT want patient to have CPR. She is declining to re-do POLST form. She does not want patient's nieces to make decisions for him. Shabnam was upset about the meeting as her nieces were in favor of patient having CPR by the fpc staff only. I explained that it is not appropriate to put instructions on a POLST form such as certain caregivers/providers to give CPR and others not to-- she agreed and does not want a POLST form done to that effect. -At this point, it may be appropriate to explore further options for placement including SNF. I do understand that patient is medically okay for discharge and he would require TARGET process if he is to go to SNF. However, I am uncertain of his fpc's capabilities and/or their comfort level with caring for someone on comfort care/hospice care. -I will follow as needed. Please contact me with any further palliative care needs. Total time spent 35 minutes with >50% of time spent at bedside with patient, on phone with patient's sister discussing goals of care, and on nursing unit collaborating with case management and MD. Palliative Performance Scale: 50 % Discharge planning: uncertain
[2017-09-07 16:00] VITALS: O2SAT 96
--- NOTE | 2017-09-07 17:02 | Progress Note ---
Subjective Date of Service: Sep 07, 2017. Subjective Pt evaluation today including: conversation w/ patient, physical exam, chart review, lab review, review of studies, review of inpatient medication list Doing the same, saying simple words, Problem List Medical Problems: (1) Aspiration pneumonitis Status: Acute (2) Chest wall injury Status: Acute (3) Facial laceration Status: Acute (4) Head trauma Status: Acute (5) Hypophosphatemia Status: Acute (6) Laceration of head Status: Acute (7) Leg abrasion Status: Acute (8) Neck contusion Status: Acute (9) Pneumonia Status: Acute (10) Pneumonia Status: Acute (11) Pneumonia Status: Acute Review of Systems Constitutional: + problem reported (Not able to obtain because patient is nonverbal not conversational) Objective Vital Signs Date Time Temp Pulse Resp B/P (MAP) Pulse Ox O2 Delivery O2 Flow Rate FiO2 09/07/17 10:38 Room Air 09/07/17 06:56 36.2 79 18 105/56 (72) 96 Room Air 09/07/17 00:00 Room Air 09/06/17 22:47 147/79 (101) 09/06/17 21:08 Room Air Physical Exam General Appearance: no apparent distress, + thin Eyes: normal inspection, PERRL, EOMI, sclerae normal ENT: normal ENT inspection, hearing grossly normal, pharynx normal, + pertinent finding (Top of oral has some white thrush) Neck: supple, no adenopathy, thyroid normal, no JVD, no carotid bruits, trachea midline Respiratory/Chest: no respiratory distress, no accessory muscle use, + decreased breath sounds Cardiovascular: regular rate, rhythm, no edema, no gallop Abdomen: normal bowel sounds, non tender, soft Extremities: normal range of motion, non-tender, normal inspection Neurologic/Psychiatric: 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 nml as tested, no motor/sensory deficits Skin: normal color Laboratory Results Last 24 Hours Test 09/07/17 06:14 White Blood Count 7.50 K/uL Red Blood Count 4.18 M/uL Hemoglobin 13.1 g/dL Hematocrit 39.4 % Mean Corpuscular Volume 94.3 fL Mean Corpuscular Hemoglobin 31.3 pg Mean Corpuscular Hemoglobin Concent 33.2 g/dl RDW Standard Deviation 46.1 fL RDW Coefficient of Variation 13.6 % Platelet Count 182 K/uL Mean Platelet Volume 11.3 fL Assessment and Plan 82 y/o M who was admitted on 08/26/2017 with decreased responsiveness was found has possible aspiration pneumonia, Decreased responsiveness upon admission: likely related to asp PNA , resolved possible is approaching to baseline asp PNA stable, resolved, has completed full course of antibiotic treatment Generalized weakness with ambulatory dysfunction, patient at home prior to admission was able to walk with cane or walker, in baseline [facility] , nonverbal Metabolic encephalopathy in the setting of dehydration, hypophosphatemia, and aspiration pneumonia, resolved CT head neg for acute BPH: continue home meds STEMI/CVA: stable, not on aspirin/plavix/etc per caregiver Seizure hx: no meds for this as this was years ago, Caregiver is specific that Valium is for mood only Mood disorder: cont holding valium/diazepam diet per speech recs: 1.Puree diet with thin liquids no straws 2.Pt. will need assistance with all p.o. intake 3.Aspiration precautions alternate consistencies, upright, alert, and willing to accept p.o. intake. 4.Safe swallow strategies small bites, small sips, slow rate 5.Discontinue feeding event of pt. has overt s/s of aspiration (coughing, wet vocal quality, difficulty swallowing) 6.Mouth care (clear mouth via brushing teeth and all surfaces) before p.o. intake if pt. will allow Oral thrush: Continue Magic mouthwash Other: DNR/DNI. Sister is POA if needed Heparin for DVT proph Pureed diet CM continue work for return to jail on d/c, possible tomorrow Discharge planning: home
[2017-09-07] MEDS: CLOTRIMAZOLE 1% CR 15 GM TUBE EXT SCH (20:38)
[2017-09-07 22:49] VITALS: BP 121/68; PULSE 72; TEMP 36.6; O2SAT 97
[2017-09-08] MEDS: DEXAMETHASONE CONC SOLN 3.75 MG, NYSTATIN SUSP 30 ML, DiphenhydrAMINE HCL SYRUP 300 MG,... PO SCH ×20 (04:54→19:53)
[2017-09-08 07:48] VITALS: BP 115/77; PULSE 81; TEMP 36.3; O2SAT 96
[2017-09-08] MEDS: MELOXICAM 7.5 MG TAB PO SCH ×2 (09:09→19:52)
[2017-09-08] MEDS: SENNA 17.6 MG/10 ML UDP PO SCH (09:09)
[2017-09-08] MEDS: FINASTERIDE 5 MG TAB PO SCH (09:09)
[2017-09-08] MEDS: MAGNESIUM HYDROXIDE SUSP 30 ML UDC PO SCH (09:09)
[2017-09-08] MEDS: NYSTATIN POWDER 15GM BTL EXT SCH ×2 (09:09→19:52)
[2017-09-08] MEDS: HEPARIN SOD 5000 UNIT/0.5 ML CARP SQ SCH ×2 (09:10→19:55)
--- NOTE | 2017-09-08 16:11 | Progress Note ---
Subjective Date of Service: Sep 08, 2017. Subjective Pt evaluation today including: conversation w/ patient, physical exam, chart review, lab review, review of studies, review of inpatient medication list During the same, no acute distress in bed, Problem List Medical Problems: (1) Aspiration pneumonitis Status: Acute (2) Chest wall injury Status: Acute (3) Facial laceration Status: Acute (4) Head trauma Status: Acute (5) Hypophosphatemia Status: Acute (6) Laceration of head Status: Acute (7) Leg abrasion Status: Acute (8) Neck contusion Status: Acute (9) Pneumonia Status: Acute (10) Pneumonia Status: Acute (11) Pneumonia Status: Acute Review of Systems Constitutional: + problem reported (Not able to obtain because of not conversational,) Objective Vital Signs Date Time Temp Pulse Resp B/P (MAP) Pulse Ox O2 Delivery O2 Flow Rate FiO2 09/08/17 12:05 Room Air 09/08/17 07:48 36.3 81 16 115/77 (90) 96 09/07/17 22:49 36.6 72 17 121/68 (85) 97 Room Air 09/07/17 20:08 Room Air Physical Exam General Appearance: WD/WN, no apparent distress, + thin Eyes: normal inspection, PERRL, EOMI, sclerae normal ENT: normal ENT inspection, hearing grossly normal, pharynx normal Neck: supple, no adenopathy, thyroid normal, no JVD, no carotid bruits, trachea midline Respiratory/Chest: chest non-tender, normal breath sounds, no respiratory distress, no accessory muscle use, + decreased breath sounds, + pertinent finding (Severe kyphosis) Cardiovascular: regular rate, rhythm, no edema, no gallop, no JVD, no murmur Abdomen: normal bowel sounds, non tender, soft, no organomegaly, no pulsatile mass Extremities: normal range of motion, non-tender, normal inspection, no pedal edema, no calf tenderness, normal capillary refill, pelvis stable Neurologic/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: 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, no motor/sensory deficits, alert, normal mood/affect Skin: normal color, warm/dry, no rash Lymphatic: no adenopathy Assessment and Plan 82 y/o M who was admitted on 08/26/2017 with decreased responsiveness was found has possible aspiration pneumonia, Decreased responsiveness upon admission: likely related to asp PNA , resolved possible is approaching to baseline asp PNA stable, resolved, has completed full course of antibiotic treatment Generalized weakness with ambulatory dysfunction, patient at home prior to admission was able to walk with cane or walker, in baseline History of development delay in the jail , nonverbal Metabolic encephalopathy in the setting of dehydration, hypophosphatemia, and aspiration pneumonia, resolved CT head neg for acute BPH: continue home meds STEMI/CVA: stable, not on aspirin/plavix/etc per caregiver Seizure hx: no meds for this as this was years ago, Caregiver is specific that Valium is for mood only Mood disorder: cont holding valium/diazepam diet per speech recs: 1.Puree diet with thin liquids no straws 2.Pt. will need assistance with all p.o. intake 3.Aspiration precautions alternate consistencies, upright, alert, and willing to accept p.o. intake. 4.Safe swallow strategies small bites, small sips, slow rate 5.Discontinue feeding event of pt. has overt s/s of aspiration (coughing, wet vocal quality, difficulty swallowing) 6.Mouth care (clear mouth via brushing teeth and all surfaces) before p.o. intake if pt. will allow Oral thrush: Continue Magic mouthwash Other: DNR/DNI. Sister is POA if needed Heparin for DVT proph Pureed diet CM continue work for placement, return to jail is not an option Continued [facility] stay due to: home environment unsafe for pt Discharge planning: uncertain
[2017-09-08] MEDS ORDERED: POTASSIUM CHLORIDE 10 MEQ TABCR PO ONE (16:15)
[2017-09-08] MEDS: CLOTRIMAZOLE 1% CR 15 GM TUBE EXT SCH (19:52)
[2017-09-08 22:25] VITALS: BP 100/58; PULSE 81; TEMP 36.3; O2SAT 97
[2017-09-09] MEDS: DEXAMETHASONE CONC SOLN 3.75 MG, NYSTATIN SUSP 30 ML, DiphenhydrAMINE HCL SYRUP 300 MG,... PO SCH ×10 (04:00→06:54)
[2017-09-09 07:35] VITALS: BP 121/64; PULSE 68; O2SAT 97
[2017-09-09] MEDS: MELOXICAM 7.5 MG TAB PO SCH (07:43)
[2017-09-09] MEDS: FINASTERIDE 5 MG TAB PO SCH (07:43)
[2017-09-09] MEDS: SENNA 17.6 MG/10 ML UDP PO SCH (07:43)
[2017-09-09] MEDS: NYSTATIN POWDER 15GM BTL EXT SCH (07:43)
[2017-09-09] MEDS: HEPARIN SOD 5000 UNIT/0.5 ML CARP SQ SCH (07:46)
[2017-09-09] MEDS: MAGNESIUM HYDROXIDE SUSP 30 ML UDC PO SCH (07:53)
[2017-09-09 12:40] VITALS: BP 121/64; PULSE 68; TEMP 36.3; O2SAT 97
--- NOTE | 2017-09-09 12:43 | Discharge Instructions ---
Discharge Instructions Date of Service Sep 09, 2017. Admission Reason for Admission: Aspiration Pneumonia Discharge Discharge Diagnosis / Problem: aspiration pneumonia, Discharge Goals Goal(s): Decrease discomfort, Improve disease control, Learn about illness, Diagnostic testing, Therapeutic intervention, Specific goals Activity Recommendations Activity Limitations: resume your previous activity . Instructions / Follow-Up Instructions / Follow-Up you have decreased responsiveness upon admission: likely related to asp PNA , resolved you have high risks of aspiration, comfort feeding Oral thrush: Continue Magic mouthwash Start hospice care after arriving nursing home Current Hospital Diet Patient's current hospital diet: Regular Diet Discharge Diet Recommended Diet: Regular Diet Pending Studies Studies pending at discharge: no Medical Emergencies . Who to Call and When: Medical Emergencies: If at any time you feel your situation is an emergency, please call 911 immediately. . Non-Emergent Contact Non-Emergency issues call your: Primary Care Provider . . "Provider Documentation" section prepared by Navin Maldonado. .
[2017-09-09] MEDS ORDERED: MGCS/ PO (12:53)
--- NOTE | 2017-09-09 13:01 | Discharge Summary ---
Discharge Summary Date of Service Sep 09, 2017. Discharge Summary Admission Date: Aug 26, 2017 at 16:42 Discharge Date: Sep 09, 2017 Discharge Disposition: Home Principal Diagnosis: decreased responsiveness upon admission: likely related to asp PNA Problems/Secondary Diagnoses: Aspiration pneumonia Immunizations: Have You Had Influenza Vaccine: Unknown History of Tetanus Vaccine?: Unknown History of Pneumococcal: Unknown History of Hepatitis B Vaccine: Unknown Procedures: No Consultations: No Medication Reconciliation New Medications: Maalox/Diphen/Visc. Hira/Glyc (Magic Swizzle) 240 Ml Btl 10 ML PO QID for 4 Days Continued Medications: Acetaminophen (Tylenol) 325 Mg Tab 650 MG PO Q4 PRN for FEVER, HEADACHE, ACHES, PAINS MAX 3 GM/24HRS Alum & Mag Hydrox-Simethicone (Mylanta) 1 Lorna Lorna 30 ML PO Q4 PRN for GAS Carbamide Peroxide (Otic) (Debrox) 6.5 % Nuvia 5 DROPS OT BID Clotrimazole (Clotrimazole) 135 Appln/45 Gm Cr 1 APPLN TOP HS Dextromethorphan-Phenylephrine (Vicks Dayquil Cold & Flu) 1 Cap Cap 1 DOSE PO UD PRN for COLD/FLU Diazepam (Valium) 2 Mg Tab 2 MG PO BID Diazepam (Diazepam) 5 Mg Tab 5 MG PO UD for BEFORE PODIATRY APPT MAY REPEAT DOSE AT APPT IF NEEDED Fexofenadine Hcl (Brittany) 180 Mg Tab 180 MG PO DAILY PRN for Allergic Reaction Finasteride (Proscar) 5 Mg Tab 5 MG PO QAM Guaifenesin/Dextromethorphan (Robitussin-Dm - Substitute) 5 Ml Syrp 5 ML PO Q6 PRN for COUGH/CONGESTION Ketoconazole (Topical) (Nizoral) 2 % Sha 1 APPLN TOP 3XWK TU, AND SAT WITH SHOWER Loperamide Hcl (Imodium A-D) 2 Mg Tab 2 MG PO UD 1 TABLET AFTER EACH LOOSE STOOL. MAX 12 MG / 24 HRS Magnesium Hydroxide (Milk Of Magnesia) 30 Ml Susp 15 ML PO WK TUESDAYS Magnesium Hydroxide (Milk Of Magnesia) 30 Ml Susp 30 ML PO DAILY PRN for Constipation Meloxicam (Mobic) 7.5 Mg Tab 7.5 MG PO BID Metronidazole (Topical) (Metrogel) 0.75 % Gel 1 DOSE TOP HS Nystatin (Topical) (Nystatin) 100,000 Unit/Gm Pow 1 DOSE TOP BID [Senokot Liquid] () 1 DOSE PO QAM Discharge Exam Doing okay, awake and alert, making noise, speak simple words, not conversational, in baseline Review of Systems: Constitutional: + problem reported (Not able to obtain however patient is in baseline of his developmental delay) Physical Exam: General Appearance: WD/WN Eyes: normal inspection ENT: normal ENT inspection Neck: supple Respiratory/Chest: chest non-tender, + decreased breath sounds, + pertinent finding (Severe kyphosis) Cardiovascular: regular rate, rhythm Abdomen / GI: normal bowel sounds, non tender, soft, no organomegaly, no pulsatile mass Extremities: normal inspection 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, alert, normal mood/affect Skin: normal color Hospital Course 82 y/o M who was admitted on 08/26/2017 with decreased responsiveness was found has possible aspiration pneumonia, Decreased responsiveness upon admission: likely related to asp PNA , resolved possible is approaching to baseline asp PNA stable, resolved, has completed full course of antibiotic treatment Generalized weakness with ambulatory dysfunction, patient at home prior to admission was able to walk with cane or walker, in baseline History of development delay in the [facility] , nonverbal Metabolic encephalopathy in the setting of dehydration, hypophosphatemia, and aspiration pneumonia, resolved CT head neg for acute BPH: continue home meds STEMI/CVA: stable, not on aspirin/plavix/etc per caregiver Seizure hx: no meds for this as this was years ago, Caregiver is specific that Valium is for mood only Mood disorder: cont holding valium/diazepam diet per speech recs: 1.Puree diet with thin liquids no straws 2.Pt. will need assistance with all p.o. intake 3.Aspiration precautions alternate consistencies, upright, alert, and willing to accept p.o. intake. 4.Safe swallow strategies small bites, small sips, slow rate 5.Discontinue feeding event of pt. has overt s/s of aspiration (coughing, wet vocal quality, difficulty swallowing) 6.Mouth care (clear mouth via brushing teeth and all surfaces) before p.o. intake if pt. will allow Oral thrush: Continue Magic mouthwash Other: DNR/DNI. Sister is POA if needed Heparin for DVT proph Pureed diet After discussed with POA per clinical case manager, return to [facility] with hospice care, recommend comfort feeding with regular diet Instructions / Follow-Up you have decreased responsiveness upon admission: likely related to asp PNA , resolved you have high risks of aspiration, comfort feeding Oral thrush: Continue Magic mouthwash Start hospice care after arriving [facility] Total Time Spent: Greater than 30 minutes This includes examination of the patient, discharge planning, medication reconciliation, and communication with other providers. Discharge Instructions Please refer to the electronic Patient Visit Report (Discharge Instructions) for additional information. Additional Copies To Malik Griffin M.D.
== END 2017-09-09 14:28 | disposition hospice, home (50) | DRG 177 ==
LOC: EDBD 10:11 → C.EDB 10:12 → C.4E 16:42 → EDBEDREQ 16:53 → ENRESERV 17:40
PROVIDERS: ADMIT Family Medicine; ATTEND Hospitalist
DX: J69.0 Pneumonitis due to inhalation of food and vomit (principal); G93.41 Metabolic encephalopathy; B37.0 Candidal stomatitis; E83.39 Other disorders of phosphorus metabolism; K59.00 Constipation, unspecified; N40.0 Benign prostatic hyperplasia without lower urinary tract symptoms; F39 Unspecified mood [affective] disorder; R54 Age-related physical debility; Z51.5 Encounter for palliative care; Z66 Do not resuscitate; Z79.899 Other long term (current) drug therapy

== ENCOUNTER 2018-08-24 15:48 | Inpatient (IN) ==
[2018-08-24] MEDS ORDERED: SODIUM CHLORIDE 0.9% 1000ML 1,000 ML IV SCH (16:30)
--- NOTE | 2018-08-24 16:38 | XRay Report ---
XR chest 1V portable CLINICAL HISTORY: 83 years-old Male presenting with weakness. TECHNIQUE: Portable upright AP view of the chest was obtained. COMPARISON: 08/23/[address] from 06/07/2017. FINDINGS: The patient is NEHA rotated and kyphotic limiting diagnostic sensitivity. Cardiomediastinal silhouette grossly unchanged. No focal opacity. No large effusion or pneumothorax. Osteopenia with multiple rib fractures noted on the right. These are chronic and were evident on prior chest CT. Upper abdomen no rmal. IMPRESSION: 1. Kyphotic positioning limits evaluation. Allowing for this, no gross evidence of acute cardiopulmo nary disease. 2. Multiple old right rib fractures in the setting of osteopenia. Electronically signed by: Demarco Mcgraw M.D. 08/24/2018 4:36 PM
[2018-08-24 17:25] LABS: Partial Thromboplastin Time 26.9 Seconds (21.0-31.0); Prothrombin Time 10.3 Seconds (9.0-12.0)
[2018-08-24 17:27] LABS: Alanine Aminotransferase 16 U/L (12-78); Albumin Level 3.1 gm/dl (3.4-5.0); Aspartate Aminotransferase 15 U/L (15-37); BUN Creatinine Ratio 21.3 (10-20); Blood Urea Nitrogen 18 mg/dl (7-18); Calcium 8.3 mg/dl (8.5-10.1); Carbon Dioxide 32 mmol/L (21-32); Chloride 105 mmol/L (98-107); Creatinine Clr Calc Pharmacy 37.1 ml/min; Est GFR (African American) 96.1; Est GFR (Non-African American) 82.9; Glucose 114 mg/dl (70-99); Sodium 141 mmol/L (136-145)
[2018-08-24 17:32] LABS: Albumin Globulin Ratio 0.9 (0.9-2); Alkaline Phosphatase 70 U/L (45-117); Bilirubin,Total 0.5 mg/dl (0.2-1); Globulin 3.4 gm/dl (2.5-4.0); Total Protein 6.5 gm/dl (6.4-8.2); Troponin I < 0.015 ng/ml (0-0.045)
[2018-08-24 17:34] LABS: Basophils # (auto) 0.03 K/uL (0-0.2); Basophils % (auto) 0.5 %; Eosinophils # (auto) 0.35 K/uL (0-0.5); Eosinophils % (auto) 5.4 %; Hematocrit (blood only) 35.6 % (42-52); Hemoglobin 11.6 g/dL (14.0-18.0); Immature Granulocytes # (auto) 0.02 K/uL (0.00-0.02); Immature Granulocytes % (auto) 0.3 %; Lymphocytes # (auto) 1.21 K/uL (1.2-3.4); Lymphocytes % (auto) 18.6 %; Mean Corpuscular Hgb Conc 32.6 g/dL (32-36); Mean Corpuscular Volume 95.7 fL (80-100); Mean Platelet Volume 12.2 fL (7.4-10.4); Monocytes # (auto) 0.58 K/uL (0.11-0.59); Monocytes % (auto) 8.9 %; Neutrophils # (auto) 4.32 K/uL (1.4-6.5); Neutrophils % (auto) 66.3 %; Platelet Count 127 K/uL (130-400); Platelet Estimate Normal (Normal); RDW Coefficient of Variation 13.6 % (11.5-14.5); Red Blood Count 3.72 M/uL (4.7-6.1); White Blood Count 6.51 K/uL (4.8-10.8)
--- NOTE | 2018-08-24 18:20 | Ultrasound Report ---
US venous doppler UE RT CLINICAL HISTORY: 83 years-old Male presenting with right arm swelling, post IV/Labs/CT w dye. TECHNIQUE: Real-time grayscale and color and spectral Doppler ultrasound imaging of the veins of the right upper extremity was performed. Compression and augmentation were also utilized. COMPARISON: None. FINDINGS: RIGHT: Internal jugular vein: Patent. Subclavian vein: Patent. Axillary vein: Patent. Brachial vein: Thrombus in one of 2 duplicated brachial veins. Basilic vein (superficial): Patent. Cephalic vein (superficial): Patent. Radial vein: Patent. Ulnar vein: Patent. Other: Subcutaneous edema noted. IMPRESSION: Deep venous thrombosis within one of 2 duplicated brachial veins. The report will be called/faxed according to standard departmental protocol. Electronically signed by: Demarco Mcgraw M.D. 08/24/2018 6:19 PM
[2018-08-24 19:19] LABS: Appearance Urine Clear (Clear); Bilirubin Urine Negative (Negative); Blood Urine 1+ (Negative); Color Urine Yellow; Glucose Urine UA Negative (Negative); Ketones Urine Negative (Negative); Leukocyte Esterase Urine Negative (Negative); Nitrite Urine Negative (Negative); Protein Urine Negative (Negative); Specific Gravity Urine <= 1.005 (1.000-1.030); Urobilinogen Urine Negative (Negative); pH Urine 5.5 (4.5-7.5)
[2018-08-24 19:27] LABS: Bacteria Urine Negative (Negative); Epithelial Cell Urine 0-5 /lpf (0-5); RBC Urine 0-4 /hpf (0-4)
[2018-08-24] MEDS ORDERED: FAMOTIDINE 20MG/5ML IV PUSH IV STA (19:27)
[2018-08-24] MEDS ORDERED: PANTOprazole 80 MG in DEXTROSE 5% 100 ML IV ONE (20:15)
--- NOTE | 2018-08-24 21:17 | History & Physical Report ---
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 Presented one day prior with nausea and dark colored vomitus. 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 He was apparently vomiting for two hours. Initially the vomitus looked like mucous and then turned xddhud-jcrjkp-dckp. He was sent for a CT of the abdomen which did not demonstrate any acute findings. The contrast unfortunately partially extravasated into his R arm. His vomiting resolved and his Hb was near-normal. His arm did not show significant inflammation so that he was subsequently DCd. He returns today as he is lethargic and has been in a curled-up position all day. He has not had a fever, rigors or additional vomiting but is not as active as usual and appears agitated. A repeat Hb did not show a significant drop in his hemoglobin. A doppler of the RUE did however demonstrate a brachial DVT. 1) Coffee-ground emesis one day prior has resolved - Hb appears stable - we will repeat, provide famotidine and give keep him NPO overnight. GI consult if Hb declines further or if vomiting recurs. 2) Lethargy/agitation - no clear evidence of infection. Would watch for development of aspiration PNM symptoms. UA/CXR currently neg for acute findings. 3) DVT - brachial - will likely need treatment although risk may outweigh benefit. Canot treat currently due to possibility of GI blood loss. 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 Presented one day prior with nausea and dark colored vomitus. 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 He was apparently vomiting for two hours. Initially the vomitus looked like mucous and then turned ckbffn-skeiwj-hyax. He was sent for a CT of the abdomen which did not demonstrate any acute findings. The contrast unfortunately partially extravasated into his R arm. His vomiting resolved and his Hb was near-normal. His arm did not show significant inflammation so that he was subsequently DCd. He returns today as he is lethargic and has been in a curled-up position all day. He has not had a fever, rigors or additional vomiting but is not as active as usual and appears agitated. A repeat Hb did not show a significant drop in his hemoglobin. A doppler of the RUE did however demonstrate a brachial DVT. The pt could not participate in the HPI/ROS and exam is limited as he is agitated and cannot obey commands. A history is obtained from family an a district plant engineer at bedside. PMH: 1) CAD/NSTEMI - not confirmed 2) MR - nonverbal 3) CVA - not confirmed 4) Distant history of seizures 5) Anxiety 6) Dysphagia with history of aspiration - puree diet Surgical: No surgical history Social: Lives at home with full-time district plant engineer Family: Mother [place] in her 90s Father Leukemia in his 80s Allergies Allergy/AdvReac Type Severity Reaction Status Date / Time amoxicillin [From Augmentin] Allergy Intermediate Rash Unverified 08/24/18 17:07 clavulanic acid Allergy Intermediate Rash Unverified 08/24/18 17:07 [From Augmentin] Home Medications Home Medications Medication Instructions Recorded Confirmed Type finasteride [Proscar] 5 mg PO QAM 01/03/18 08/24/18 History magnesium hydroxide [Milk of 1 dose PO 3XWK 01/03/18 08/24/18 History Magnesia] metronidazole 1 applic TOPICAL DAILY PRN 01/03/18 08/24/18 History acetaminophen 325 mg capsule 650 mg PO Q4H PRN cap 07/26/18 08/24/18 History carbamide peroxide 6.5 % ear drops 5 drp OTIC (EAR) BID ml 07/26/18 08/24/18 History clotrimazole 1 % topical cream 1 applic TOPICAL .COMPLEX 07/26/18 08/24/18 History ketoconazole 2 % shampoo 1 applic TOPICAL 3XWK 07/26/18 08/24/18 History loperamide 2 mg capsule 2 mg PO .COMPLEX 07/26/18 08/24/18 History ouyhlxthhrpdx-TH-eugcdumsmigfy-guaifen 2 tab PO Q6H PRN tab 07/26/18 08/24/18 History 5 mg-10 mg-325 mg-200 mg tablet nystatin 100,000 unit/gram topical 1 applic TOPICAL BID gm 08/03/18 08/24/18 History powder diazepam 5 mg PO UD 08/23/18 08/24/18 History docusate sodium [Colace] 100 mg PO WK 08/23/18 08/24/18 History ondansetron HCl [Zofran] 4 mg PO DAILY PRN #6 tab 08/23/18 08/24/18 Rx diazepam 2 mg tablet 2 mg PO TID 28 Days #84 tab 08/24/18 08/24/18 Rx pantoprazole 40 mg tablet,delayed 40 mg PO DAILY #30 tab 08/24/18 08/24/18 Rx release Past Med/Surg History Medical History BPH (benign prostatic hyperplasia) (Chronic) Seizure (Chronic) Aspiration pneumonia Declining functional status Family History Other Diabetes Hypertension Social History Preferred Language: Persian Communication Ability: Impaired marital status: Single Current Living Situation Comment: Care facility: Skills current occupational status: disabled Feels Safe at Home: Yes Smoking Status: Unknown if ever smoked Review of Systems Review of Systems: cannot obtain Physical Exam Physical Exam: General: Very thin, agitated, elderly male - tends to yell and swat me away ENT: No erythema or exudates - could not examine oral cavity Eyes: JAIME, EOMI Head and neck: Normocephalic, atraumatic, No JVD, neck is supple. Chest/heart: Nontender, S1,2, RRR, no murmurs, no gallops Lungs: Limited effort - no overt abnormalities Abdomen: I was able to press firmly on the abdomen with eliciting a reaction Neuro: No acute changes aside from lethargy per family Musculoskeletal: No joint inflammation, muscle tenderness, FROM Skin: No acute rashes or ulcers Extremities: No clubbing, cyanosis, edema of LEs - RUE is mildly inflamed - not significantly tender Results & Data Vital Signs (Past 12 Hours) Vital Signs Temp Pulse Pulse Resp BP BP Pulse Ox 08/24/18 18:23 83 08/24/18 18:20 17 117/53 L 08/24/18 17:34 72 20 110/61 97 08/24/18 15:59 97.9 F 80 17 96/42 L 97 PG Care Time/CCT Total # of Minutes Spent Total Time Spent with Patient: Total time spent is greater than 50% in coor dination of care (as documented) at patient's floor/unit and/or counseling patient: (1) GI (gastrointestinal bleed) GI bleed type/associated pathology: unspecified gastrointestinal hemorrhage type Qualified Code(s): K92.2 - Gastrointestinal hemorrhage, unspecified (2) DVT (deep venous thrombosis) Affected thrombotic vein of extremity: unspecified vein of extremity Ch ronicity: unspecified DVT location: upper extremity Laterality: right Qualified Code(s): I82.621 - Acute embolism and thrombosis of deep veins of right upper extremity
[2018-08-24] MEDS ORDERED: DIAZEPAM 5 MG/ML INJ 10ML VIAL IV PRN (23:29)
[2018-08-24] MEDS ORDERED: ALUMINUM/MAGNESIUM SUSP 30 ML UDC PO PRN (23:29)
[2018-08-24] MEDS ORDERED: TRAMADOL HCL 50 MG TABLET PO PRN (23:29)
[2018-08-24] MEDS ORDERED: FAMOTIDINE 20MG/5ML IV PUSH IV SCH (23:29)
[2018-08-24] MEDS ORDERED: ACETAMINOPHEN 325 MG TAB PO PRN (23:29)
[2018-08-24] MEDS ORDERED: MAGNESIUM HYDROXIDE SUSP 30 ML UDC PO PRN (23:29)
[2018-08-24] MEDS ORDERED: ONDANSETRON INJ 2 MG/ML 2 ML VIAL IV PRN (23:29)
[2018-08-24] MEDS ORDERED: POLYETHYLENE (MIRALAX) 17 GM PACK PO PRN (23:29)
[2018-08-25] MEDS: D5W AND LACTATED RINGERS 1,000 ML IV SCH ×2 (00:35→13:42)
--- NOTE | 2018-08-25 02:02 | Emergency Department Note ---
Entered by Shonda Valles acting as a scribe for Ovidio Cevallos MD ED Provider Note CHIEF COMPLAINT: Right upper extremity edema and erythema HISTORY OF PRESENT ILLNESS: The patient is a 83 year old male who presents to the Emergency Room with complaints of persistent right upper extremity edema and erythema that began yesterday. His family member, at bedside, reports that he was seen at [facility] yesterday for dark vomit. She states that an there was an IV in his right upper extremity yesterday, and he was released from the hospital with the upper extremity edema. The family member notes that the erythema has worsened, stating that he now has blisters. She complains that the patient has been lethargic and weak today. The family member denies LOC, headache, fevers, chills, diaphoresis, visual changes, neck pain, chest pain, breathing difficulties, nausea, vomiting, abdominal pain, back pain, melena, hematochezia, urinary symptoms, numbness, lymphadenopathy, rash, or other complaints. HPI limited secondary to patient's nonverbal status. REVIEW OF SYSTEMS: See HPI for pertinent positives and negatives. ROS unattainable secondary to patient's nonverbal status. PMHx/PSHx: Pneumonia, anemia, seizure, fall SOCIAL HISTORY: Patient lives at a long-term care facility. PHYSICAL EXAM: GENERAL: Awake, alert, tired-appearing, in no distress HENT: Normocephalic, atraumatic. Oropharynx unremarkable. EYES: PERRL. Normal conjunctiva. Sclera non-icteric. NECK: Inspection normal. Non-tender. Supple. No nuchal rigidity. FROM. No masses. RESPIRATORY: Scattered rhonchi. No wheezes. No rales. Normal respiratory effort. Normal work of breathing. CARDIAC: Normal rate. Normal rhythm. No murmurs. No rubs. Extremities warm and well perfused. Pulses equal. No JVD. GI: Soft, non-distended. Mild epigastric tenderness to palpation. No rebound or guarding. No masses. RECTAL: Brown stool. Heme negative. MUSCULOSKELETAL: Atraumatic. Chest examination reveals no tenderness. The back is symmetrical on inspection without obvious abnormality. There is no CVA tenderness to palpation. No joint edema. UPPER EXTREMITIES: 1+ edema to the right upper extremity in the hand, forearm, and distal upper arm. A few vesicles are present. LOWER EXTREMITIES: Calves are equal size bilaterally and non-tender. No edema. No discoloration. NEURO: Limited. Non-verbal. Not following commands. Generally weak. SKIN: No rash or jaundice noted. EMERGENCY DEPARTMENT COURSE: 1615: Past medical records reviewed. The patient was evaluated in room C04, and a complete history and physical examination were performed. 1650: I spoke with the staging technician that saw the patient yesterday. The environmental health technician reports that the patient has difficulties with the IV dye yesterday. 1801: The patient was not cooperating for the ultrasound. I called the charge nurse to help attain the ultrasound. 1927: I updated the patient and his family member at bedside. I reevaluated the patient. 1951: I spoke with Dr. Davila, [facility] hospitalist, about the patients case. He will further evaluate the patient. MEDICAL DECISION MAKING: Prior records/ancillary studies reviewed. The patient was here yesterday. His laboratory testing was unremarkable. Stable anemia. CT imaging of the abdomen pelvis did not reveal any abnormal findings. Nursing notes reviewed and agree them. Additional history obtained from the patient's caregiver. I did discuss the patient with the dairy manufacturing technologist that performed his CT yesterday and he did have a contrast extravasation from the right arm IV. The patient's history was concerning for altered mental status and right arm swelling. Differential diagnosis: Etiologies such as cellulitis, DVT, extravasation, infection, hypoglycemia, elec trolyte abnormalities, cardiac sources, intracerebral event, toxicologic, neurologic, as well as others were entertained. Physical examination: As above. The patient does have what appears to be an extravasation-like reaction on the right upper extremity. ER treatment provided: IV Lock Normal saline hydration at 100ml/hr IV Pepcid Protonix bolus On reassessment the patient felt better. Diagnostics interpretation by me: ECG: No acute ischemia. The labs revealed a mild anemia on CBC. This is slightly worse than prior. Patient also has a mild thrombocytopenia. Chemistry panel reveals mild dehydration. Urinalysis negative Imaging studies: Chest x-ray reveals old rib fractures but no acute findings. Ultrasound imaging reveals a DVT in the right arm. The patient had vomiting that was concerning for an upper GI bleed. His hemoglobin has dropped slightly. He had contrast extravasation and has a DVT in the right arm. He is weak. He will need further management in the hospital. The family is in agreement. Consultation: A consultation was placed with the hospitalist Dr Davila. The case was discussed and diagnostics were reviewed. The patient was evaluated in the ER for further treatment. IMPRESSION: Gastrointestinal bleed, DVT, swelling of the right upper extremity, epigastric pain PLAN: Further evaluation by hospitalist The scribe's documentation has been prepared under my direction and personally reviewed by me in its entirety. I confirm that the note above accurately reflects all work, treatment, procedures, and medical decision making performed by me. Impression & Plan GI (gastrointestinal bleed), DVT (deep venous thrombosis), Swelling of right upper extremity, Epigastric pain Past Med/Surg History Medical History BPH (benign prostatic hyperplasia) (Chronic) Seizure (Chronic) Aspiration pneumonia Declining functional status Family History Other Diabetes Hypertension Social History Preferred Language: Turkmen Communication Ability: Impaired Beliefs That Will Affect Care: None marital status: Single Current Living Situation: Other Current Living Situation Comment: [facility] current occupational status: disabled Feels Safe at Home: Yes Smoking Status: Never smoker Hx Alcohol Use: No Hx Substance Use: No Results & Data Vital Signs Vital Signs - 24 hr 08/24/18 15:59 08/24/18 17:34 08/24/18 18:20 Temperature 36.6 C Temperature Source Axillary Sepsis Recent Fever Within 48 Hours No Sepsis Action Taken by Nursing No Action Required Pulse Rate 80 Pulse Rate [Finger] 72 Respiratory Rate 17 20 17 Blood Pressure 96/42 L Blood Pressure [Left Arm] 110/61 117/53 L Blood Pressure Mean 60 Blood Pressure Mean [Left Arm] 77 74 Pulse Oximetry 97 97 Oxygen Delivery Method Room Air Room Air 08/24/18 18:23 Temperature Temperature Source Sepsis Recent Fever Within 48 Hours Sepsis Action Taken by Nursing Pulse Rate Pulse Rate [Finger] 83 Respiratory Rate Blood Pressure Blood Pressure [Left Arm] Blood Pressure Mean Blood Pressure Mean [Left Arm] Pulse Oximetry Oxygen Delivery Method Home Medications Current Medication List: was personally reviewed by me Laboratory Data Attestation: I reviewed the patient's lab results. Result diagrams: 08/24/18 23:37 08/24/18 16:50 Lab Results 08/24/18 08/24/18 08/24/18 Range/Units 16:50 16:50 16:50 WBC 6.51 (4.8-10.8) K/uL RBC 3.72 L (4.7-6.1) M/uL Hgb 11.6 L (14.0-18.0) g/dL Hct 35.6 L (42-52) % MCV 95.7 (80-100) fL MCH 31.2 (25-34) pg MCHC 32.6 (32-36) g/dL RDW Std Deviation 47.0 H (36.4-46.3) fL RDW Coeff of Annemarie 13.6 (11.5-14.5) % Plt Count 127 L (130-400) K/uL MPV 12.2 H (7.4-10.4) fL Immature Gran % (Auto) 0.3 % Neut % (Auto) 66.3 % Lymph % (Auto) 18.6 % Greeley % (Auto) 8.9 % Eos % (Auto) 5.4 % Baso % (Auto) 0.5 % Immature Gran # (Auto) 0.02 (0.00-0.02) K/uL Neut # (Auto) 4.32 (1.4-6.5) K/uL Lymph # (Auto) 1.21 (1.2-3.4) K/uL Greeley # (Auto) 0.58 (0.11-0.59) K/uL Eos # (Auto) 0.35 (0-0.5) K/uL Baso # (Auto) 0.03 (0-0.2) K/uL Platelet Estimate Normal (Normal) PT 10.3 (9.0-12.0) Seconds INR 1.0 (0.9-1.1) APTT 26.9 (21.0-31.0) Seconds PTT Ratio 1.0 Sodium 141 (136-145) mmol/L Potassium 4.0 (3.5-5.1) mmol/L Chloride 105 (98-107) mmol/L Carbon Dioxide 32 (21-32) mmol/L Anion Gap 4.0 (3-11) BUN 18 (7-18) mg/dl Creatinine 0.82 (0.6-1.4) mg/dl Est Cr Clr Drug Dosing 37.1 ml/min Est GFR ( Amer) 96.1 Est GFR (Non-Af Amer) 82.9 BUN/Creatinine Ratio 21.3 H (10-20) Glucose 114 H (70-99) mg/dl Calcium 8.3 L (8.5-10.1) mg/dl Total Bilirubin 0.5 (0.2-1) mg/dl AST 15 (15-37) U/L ALT 16 (12-78) U/L Alkaline Phosphatase 70 (45-117) U/L Troponin I < 0.015 (0-0.045) ng/ml Total Protein 6.5 (6.4-8.2) gm/dl Albumin 3.1 L (3.4-5.0) gm/dl Globulin 3.4 (2.5-4.0) gm/dl Albumin/Globulin Ratio 0.9 (0.9-2) Urine Color Urine Appearance (Clear) Urine pH (4.5-7.5) Ur Specific Wanda (1.000-1.030) Urine Protein (Negative) Urine Glucose (UA) (Negative) Urine Ketones (Negative) Urine Blood (Negative) Urine Nitrite (Negative) Urine Bilirubin (Negative) Urine Urobilinogen (Negative) Ur Leukocyte Esterase (Negative) Urine RBC (0-4) /hpf Urine WBC (0-5) /hpf Ur Epithelial Cells (0-5) /lpf Urine Bacteria (Negative) POC Stool Occult Blood (Negative) Blood Type Antibody Screen 08/24/18 08/24/18 08/24/18 Range/Units 17:31 19:00 20:00 WBC (4.8-10.8) K/uL RBC (4.7-6.1) M/uL Hgb (14.0-18.0) g/dL Hct (42-52) % MCV (80-100) fL MCH (25-34) pg MCHC (32-36) g/dL RDW Std Deviation (36.4-46.3) fL RDW Coeff of Annemarie (11.5-14.5) % Plt Count (130-400) K/uL MPV (7.4-10.4) fL Immature Gran % (Auto) % Neut % (Auto) % Lymph % (Auto) % Greeley % (Auto) % Eos % (Auto) % Baso % (Auto) % Immature Gran # (Auto) (0.00-0.02) K/uL Neut # (Auto) (1.4-6.5) K/uL Lymph # (Auto) (1.2-3.4) K/uL Greeley # (Auto) (0.11-0.59) K/uL Eos # (Auto) (0-0.5) K/uL Baso # (Auto) (0-0.2) K/uL Platelet Estimate (Normal) PT (9.0-12.0) Seconds INR (0.9-1.1) APTT (21.0-31.0) Seconds PTT Ratio Sodium (136-145) mmol/L Potassium (3.5-5.1) mmol/L Chloride (98-107) mmol/L Carbon Dioxide (21-32) mmol/L Anion Gap (3-11) BUN (7-18) mg/dl Creatinine (0.6-1.4) mg/dl Est Cr Clr Drug Dosing ml/min Est GFR ( Amer) Est GFR (Non-Af Amer) BUN/Creatinine Ratio (10-20) Glucose (70-99) mg/dl Calcium (8.5-10.1) mg/dl Total Bilirubin (0.2-1) mg/dl AST (15-37) U/L ALT (12-78) U/L Alkaline Phosphatase (45-117) U/L Troponin I (0-0.045) ng/ml Total Protein (6.4-8.2) gm/dl Albumin (3.4-5.0) gm/dl Globulin (2.5-4.0) gm/dl Albumin/Globulin Ratio (0.9-2) Urine Color Yellow Urine Appearance Clear (Clear) Urine pH 5.5 (4.5-7.5) Ur Specific Wanda <= 1.005 (1.000-1.030) Urine Protein Negative (Negative) Urine Glucose (UA) Negative (Negative) Urine Ketones Negative (Negative) Urine Blood 1+ H (Negative) Urine Nitrite Negative (Negative) Urine Bilirubin Negative (Negative) Urine Urobilinogen Negative (Negative) Ur Leukocyte Esterase Negative (Negative) Urine RBC 0-4 (0-4) /hpf Urine WBC 5-10 H (0-5) /hpf Ur Epithelial Cells 0-5 (0-5) /lpf Urine Bacteria Negative (Negative) POC Stool Occult Blood Negative (Negative) Blood Type B Positive Antibody Screen NEGATIVE Administered Medications Sodium Chloride (Nss 1000ml) 1,000 mls @ 100 mls/hr IV .Q10H STEPHEN Stop: 08/25/18 02:29 Last Admin: 08/24/18 23:32 Dose: Not Given Documented by: [id number] Dextrose/Lactated Ringer's (D5w And Lactated Ringers) 1,000 mls @ 80 mls/hr IV .[id number] STEPHEN Stop: 08/26/18 00:28 Last Admin: 08/25/18 00:35 Dose: 80 mls/hr Documented by: [id number] Discontinued Medications Famotidine (Pepcid 20mg Iv Push) 20 mg IV ONE STA Stop: 08/24/18 19:28 Last Admin: 08/24/18 19:34 Dose: 20 mg Documented by: [id number] Pantoprazole Sodium 80 mg/ (Dextrose) 120 mls @ 480 mls/hr IV ONE ONE Stop: 08/24/18 20:29 Last Infusion: 08/24/18 21:29 Dose: 0 mls/hr Documented by: [id number] Admin: 08/24/18 20:30 Dose: 480 mls/hr Documented by: [id number] Imaging Data Radiologist's Impression: Radiology results as stated below per my review and the radiologist's interpretation: XR chest 1V portable CLINICAL HISTORY: 83 years-old Male presenting with weakness. TECHNIQUE: Portable upright AP view of the chest was obtained. COMPARISON: 08/23/[address] from 06/07/2017. FINDINGS: The patient is NEHA rotated and kyphotic limiting diagnostic sensitivity. Cardiomediastinal silhouette grossly unchanged. No focal opacity. No large effusion or pneumothorax. Osteopenia with multiple rib fractures noted on the right. These are chronic and were evident on prior chest CT. Upper abdomen normal. IMPRESSION: 1. Kyphotic positioning limits evaluation. Allowing for this, no gross evidence of acute cardiopulmonary disease. 2. Multiple old right rib fractures in the setting of osteopenia. Electronically signed by: Demarco Mcgraw M.D. 08/24/2018 4:36 PM US venous doppler UE RT CLINICAL HISTORY: 83 years-old Male presenting with right arm swelling, post IV/Labs/CT w dye. TECHNIQUE: Real-time grayscale and color and spectral Doppler ultrasound imaging of the veins of the right upper extremity was performed. Compression and augmentation were also utilized. COMPARISON: None. FINDINGS: RIGHT: Internal jugular vein: Patent. Subclavian vein: Patent. Axillary vein: Patent. Brachial vein: Thrombus in one of 2 duplicated brachial veins. Basilic vein (superficial): Patent. Cephalic vein (superficial): Patent. Radial vein: Patent. Ulnar vein: Patent. Other: Subcutaneous edema noted. IMPRESSION: Deep venous thrombosis within one of 2 duplicated brachial veins. The report will be called/faxed according to standard departmental protocol. Electronically signed by: Demarco Mcgraw M.D. 08/24/2018 6:19 PM ECG Data Attestation: I personally reviewed and interpreted this ECG as follows: Indication: weakness Rate (beats per minute): 75 Rhythm: sinus rhythm Findings: + 1st degree AV block; no PAC, no PVC, no ST depression and no ST elevation Blood Pressure Blood Pressure Findings: Low blood pressure Blood Pressure Disposition: further management by hospitalist Discharge Plan Visit Data *Final* Discharge Date/Time: 08/24/18 22:08 Chief Complaint: Swelling/Edema to Extremity Stated Complaint: EDEMA TO LEFT ARM ED Provider: Ovidio Cevallos Discharge Problem: GI (gastrointestinal bleed), DVT (deep venous thrombosis), Swelling of right upper extremity, Epigastric pain Patient Disposition: Admitted As Inpatient Discharge Instructions Interventions: ED Discharge Assessment Last Done: 08/24/18 22:08 Discharge Problem: GI (gastrointestinal bleed) Qualifiers: GI bleed type/associated pathology: unspecified gastrointestinal hemorrhage type Qualified Code(s): K92.2 - Gastrointestinal hemorrhage, unspecified DVT (deep venous thrombosis) Qualifiers: DVT location: upper extremity Affected thrombotic vein of extremity: unspecified vein of extremity Chronicity: unspecified Laterality: right Qualified Code(s): I82.621 - Acute embolism and thrombosis of deep veins of right upper extremity The scribe's documentation has been prepared under my direction and personally reviewed by me in its entirety. I confirm that the note above accurately reflects all work, treatment, procedures, and medical decision making performed by me.
[2018-08-25] MEDS: NYSTATIN POWDER 15GM BTL EXT SCH ×2 (08:05→19:51)
[2018-08-25] MEDS: CARBAMIDE PEROXIDE 6.5% 15 ML BTL OT SCH ×2 (08:05→22:50)
--- NOTE | 2018-08-25 08:21 | Family Medicine Progress Note ---
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 Presented one day prior with nausea and dark colored vomitus. The pt lives at home with a radio time salesperson sales representative consultant. He was apparently vomiting for two hours. Initially the vomitus looked like mucous and then turned [id number]. He was sent for a CT of the abdomen which did not demonstrate any acute findings. The contrast unfortunately partially extravasated into his R arm. His vomiting resolved and his Hb was near-normal. His arm did not show significant inflammation so that he was subsequently DCd. He returns today as he is lethargic and has been in a curled-up position all day. He has not had a fever, rigors or additional vomiting but is not as active as usual and appears agitated. A repeat Hb did not show a significant drop in his hemoglobin. A doppler of the RUE did however demonstrate a brachial DVT. 1) Coffee-ground emesis one day prior has resolved -Was n.p.o. overnight, hemoglobin continued to drop -GI was consulted -Pantoprazole 40 mg twice daily -Carafate 1 g before meals at bedtime -Supportive care 2) Lethargy/agitation: no clear evidence of infection. -Would watch for development of aspiration PNM symptoms. -UA/CXR currently neg for acute findings. -This may be related to nausea and vomiting 3) DVT sustained brachial DVT during CT when IV extravasated in contrast fluid was in his arm. -Per discussion with family, they do not want invasive procedures to remove clot Will hold anticoagulation therapy for the time being, and defer to outpatient PCP for resumption of anticoagulation 4) Agitation/anxiety - -Patient has scheduled Valium 3 times daily, with as needed FENa: Heart healthy nectar thick Code Status: DNR/DNI DVT PPX: Holding in the setting of suspected GI bleed Dispo: Nieves (2) DVT (deep venous thrombosis): Supervising Physician Co-Signing Physician Notes Patient seen and evaluated independently of Dr. Jack. Agree with history, exam findings, assessment and plan of care as outlined. 83 y/o M Hx anoxic brain injury - nonverbal, CAD/CT, CVA, anxiety disorder, dysphagia/aspiration admitted with concerns for upper GI bleed after presenting with coffee ground emesis, right brachial DVT and decreased energy/agitation. He has not had any further episode of emesis since admission. No melena. Has been NPO overnight. He is non-verbal. His sister was at the bedside this afternoon. He lives in a mcc with 3 other people with around the clock caregivers. She feels that he is looking more like himself now. She would like to avoid invasive procedures as she wants Isael to have a good quality of life and does not feel that invasive procedures at this point would improve his quality of life. Sister is health care power of commercial attorney. She did express that her niece does not necessarily agree with her point of view. Elderly appearing male. Nonverbal. Abdomen +BS, soft, nontender. 1) Coffee-ground emesis one day prior has resolved hgb stable. - start PPI BID, Carafate AC and HS per GI. Appreciate GI recommendations. No sc ope at this point. - continue to monitor for bleeding. - repeat hgb for the morning. - ok to start clear/soft foods without brown or red coloring. 2) Lethargy/agitation - no clear evidence of infection and seems to be back to his baseline. 3) DVT R brachial secondary to IV line. Discussed with sister that he would need to be anticoagulated, but in the setting of a possible GI bleed, this is contraindicated. Discussed the possibility of having vascular see the patient to see about removing the clot, but sister does not feel that this would be in line with the goals of care which includes limiting invasive procedures. Discussed that we would wait 4 or 5 days before starting anticoagulation. This can be done by his outpatient provider. Would recommend Eliquis given the lower bleeding ri sk compared to Coumadin if anticoagulation is desired. 4) Agitation/anxiety - Valium PRN DNR/DNI Dispo: if no overnight events and hgb is stable, likely dc home. Subjective Patient nonverbal with sales representative consultant sitting at the bedside. Patient did not appear in any acute distress morning. Of note patient appears threatening when he first examined him however per the caregiver he is not dangerous or does not hurt people. Patient did well overnight with no significant interval history, NPO, voiding, stooling, sleeping. No acute concerns at present. Family members present state that they would like to avoid invasive procedures. They do not want a vascular consult for his brachial DVT, and appeared hesitant when the topic of EGD was brought up. Physical Exam Physical Exam: General: Thin agitated elderly male HEENT: Normocephalic atraumatic Neck: Normal visual inspection Cardiac: Regular rate and rhythm, no murmurs rubs or gallops Respiratory: CTA BL GI: Normal bowel sounds, soft, nontender, nondistended MSK: Moves extremities Skin: No acute rashes Neuro: Nonverbal Psych: Intermittently agitated Results & Data Vital Signs (Past 12 Hours) Vital Signs Temp Pulse Resp BP Pulse Ox 08/25/18 07:58 36.6 C 93 H 16 125/63 93 08/25/18 04:03 36.7 C 78 20 120/65 98 08/24/18 22:48 36.6 C 86 20 124/61 97 Laboratory Results 08/25/18 08/24/18 08/24/18 Range/Units 05:48 23:37 20:00 Hgb 10.8 L 11.9 L (14.0-18.0) g/dL Urine Color Urine Appearance (Clear) Urine pH (4.5-7.5) Ur Specific Point (1.000-1.030) Urine Protein (Negative) Urine Glucose (UA) (Negative) Urine Ketones (Negative) Urine Blood (Negative) Urine Nitrite (Negative) Urine Bilirubin (Negative) Urine Urobilinogen (Negative) Ur Leukocyte Esterase (Negative) Urine RBC (0-4) /hpf Urine WBC (0-5) /hpf Ur Epithelial Cells (0-5) /lpf Urine Bacteria (Negative) POC Stool Occult Blood Negative (Negative) Blood Type Antibody Screen 08/24/18 08/24/18 Range/Units 19:00 17:31 Hgb (14.0-18.0) g/dL Urine Color Yellow Urine Appearance Clear (Clear) Urine pH 5.5 (4.5-7.5) Ur Specific Point <= 1.005 (1.000-1.030) Urine Protein Negative (Negative) Urine Glucose (UA) Negative (Negative) Urine Ketones Negative (Negative) Urine Blood 1+ H (Negative) Urine Nitrite Negative (Negative) Urine Bilirubin Negative (Negative) Urine Urobilinogen Negative (Negative) Ur Leukocyte Esterase Negative (Negative) Urine RBC 0-4 (0-4) /hpf Urine WBC 5-10 H (0-5) /hpf Ur Epithelial Cells 0-5 (0-5) /lpf Urine Bacteria Negative (Negative) POC Stool Occult Blood (Negative) Blood Type B Positive Antibody Screen NEGATIVE Medications Administered Current Inpatient Medications Carbamide Peroxide (Earwax Removal Soln) 5 drops OT BID [facility] Stop: 08/29/18 08:59 Last Admin: 08/25/18 08:05 Dose: 5 drops Documented by: Diazepam (Valium) 2.5 mg IV Q8H PRN PRN Reason: Anxiety/Agitation Stop: 09/23/18 23:28 Nystatin (Mycostatin) 1 appln EXT BID STEPHEN Stop: 09/24/18 08:59 Last Admin: 08/25/18 08:05 Dose: 1 appln Documented by: Pantoprazole Sodium (Protonix) 40 mg PO BID [facility] Stop: 09/24/18 20:59 Sucralfate (Carafate Tab) 1 gm PO QID STEPHEN Stop: 09/24/18 12:59 Last Admin: 08/25/18 16:58 Dose: 1 gm Documented by: Tramadol HCl (Ultram) 50 mg PO Q8H PRN PRN Reason: Pain Stop: 09/23/18 23:28 PG Care Time/CCT Total # of Minutes Spent Total Time Spent with Patient: Total time spent is greater than 50% in coordination of care (as documented) at patient's floor/unit and/or counseling patient: Resident Activity Tracking Resident Involvement: Resident Care Provided Care Provided: Adult Hospital Medicine (1) GI (gastrointestinal bleed) GI bleed type/associated pathology: unspecified gastrointestinal hemorrhage type Qualified Code(s): K92.2 - Gastrointestinal hemorrhage, unspecified (2) DVT (deep venous thrombosis) Affected thrombotic vein of extremity: unspecified vein of extremity Chronicity: unspecified DVT location: upper extremity Laterality: right Qualified Code(s): I82.621 - Acute embolism and thrombosis of deep veins of right upper extremity
[2018-08-25] MEDS ORDERED: FAMOTIDINE 20 MG in SYRINGE 3 ML IV SCH (09:00)
--- NOTE | 2018-08-25 10:25 | Gastrointestinal Consultation ---
Date of Consultation August 25, 2018 Assessment & Plan (1) Vomiting: (2) Anemia: 1. Recommend transition from Famotidine to Pantoprazole 40 mg BID. 2. Add Carafate 1 g ACHS. 3. Continue supportive care. 4. Would recommend avoidance of invasive GI work up, especially as he is heme negative. Supervising Physician Co-Signing Physician Notes Agree with SILVIA Stewart as above Abd: Soft, NT, ND, +BS Continue supportive care and conservative management No plans for invasive workup, unless absolutely necessary History of Present Illness Reason for Consultation: GIB Requesting Physician: Dr. Harris Attending Physician: Melanie Harris, DO History of Present Illness Patient is a 83 year-old male with a history of MR, nonverbal with a history of vomiting two day ago with associated coffee-grounds per nurse school. He was arranged for an outpatient CT a/p with IV enhancement on 08/23 in this regard which was negative for any acute intraabdominal findings. He was brought to the ER yesterday after he was lethargic and was found to have a RUE brachial DVT. H&H was noted to be 12.8/39.2 on 08/23 and hemoglobin was noted to be 10.8 this morning. He is heme negative. Was given a single dose of 80 mg Protonix in the ER and is now on Famotidine 20 mg BID. No family is at the bedside. History obtain entirely from review of the H&P as patient is nonverbal. Allergies Allergy/AdvReac Type Severity Reaction Status Date / Time amoxicillin [From Augmentin] Allergy Intermediate Rash Unverified 08/24/18 17:07 clavulanic acid Allergy Intermediate Rash Unverified 08/24/18 17:07 [From Augmentin] Home Medications Home Medications Medication Instructions Recorded Confirmed Type finasteride [Proscar] 5 mg PO QAM 01/03/18 08/24/18 History magnesium hydroxide [Milk of 1 dose PO 3XWK 01/03/18 08/24/18 History Magnesia] metronidazole 1 applic TOPICAL DAILY PRN 01/03/18 08/24/18 History acetaminophen 325 mg capsule 650 mg PO Q4H PRN cap 07/26/18 08/24/18 History carbamide peroxide 6.5 % ear drops 5 drp OTIC (EAR) BID ml 07/26/18 08/24/18 History clotrimazole 1 % topical cream 1 applic TOPICAL .COMPLEX 07/26/18 08/24/18 History ketoconazole 2 % shampoo 1 applic TOPICAL 3XWK 07/26/18 08/24/18 History loperamide 2 mg capsule 2 mg PO .COMPLEX 07/26/18 08/24/18 History miwkxutqrxdjs-FO-fdxhaqfypfpbi-guaifen 2 tab PO Q6H PRN tab 07/26/18 08/24/18 History 5 mg-10 mg-325 mg-200 mg tablet nystatin 100,000 unit/gram topical 1 applic TOPICAL BID gm 08/03/18 08/24/18 History powder diazepam 5 mg PO UD 08/23/18 08/24/18 History docusate sodium [Colace] 100 mg PO WK 08/23/18 08/24/18 History ondansetron HCl [Zofran] 4 mg PO DAILY PRN #6 tab 08/23/18 08/24/18 Rx diazepam 2 mg tablet 2 mg PO TID 28 Days #84 tab 08/24/18 08/24/18 Rx pantoprazole 40 mg tablet,delayed 40 mg PO DAILY #30 tab 08/24/18 08/24/18 Rx release Patient History Medical History BPH (benign prostatic hyperplasia) (Chronic) Seizure (Chronic) Aspiration pneumonia Declining functional status Family History Other Diabetes Hypertension Social History Preferred Language: Estonian Communication Ability: Unable Beliefs That Will Affect Care: None marital status: Single Current Living Situation: Other Current Living Situation Comment: alf current occupational status: disabled Feels Safe at Home: Yes Smoking Status: Never smoker Hx Alcohol Use: No Hx Substance Use: No Review of Systems Review of Systems: Unobtainable due to cognitive status Physical Exam Constitutional: well nourished Eyes: EOM intact bilaterally Respiratory: + labored breathing Cardiovascular: Rate/Rhythm: regular rate and regular rhythm Gastrointestinal (Abdomen): Inspection/Auscultation: normal bowel sounds Percussion/Palpation: abdomen soft Musculoskeletal: no pedal edema Skin: no rashes, warm and dry Psychiatric: agitated Results & Data Vital Signs (Past 12 Hours) Vital Signs Temp Pulse Resp BP Pulse Ox 08/25/18 07:58 36.6 C 93 H 16 125/63 93 08/25/18 04:03 36.7 C 78 20 120/65 98 08/24/18 22:48 36.6 C 86 20 124/61 97 Laboratory Results Abnormal lab results 08/24/18 08/24/18 08/24/18 Range/Units 16:50 16:50 19:00 RBC 3.72 L (4.7-6.1) M/uL Hgb 11.6 L (14.0-18.0) g/dL Hct 35.6 L (42-52) % RDW Std Deviation 47.0 H (36.4-46.3) fL Plt Count 127 L (130-400) K/uL MPV 12.2 H (7.4-10.4) fL BUN/Creatinine Ratio 21.3 H (10-20) Glucose 114 H (70-99) mg/dl Calcium 8.3 L (8.5-10.1) mg/dl Albumin 3.1 L (3.4-5.0) gm/dl Urine Blood 1+ H (Negative) Urine WBC 5-10 H (0-5) /hpf 08/24/18 08/25/18 Range/Units 23:37 05:48 RBC (4.7-6.1) M/uL Hgb 11.9 L 10.8 L (14.0-18.0) g/dL Hct (42-52) % RDW Std Deviation (36.4-46.3) fL Plt Count (130-400) K/uL MPV (7.4-10.4) fL BUN/Creatinine Ratio (10-20) Glucose (70-99) mg/dl Calcium (8.5-10.1) mg/dl Albumin (3.4-5.0) gm/dl Urine Blood (Negative) Urine WBC (0-5) /hpf (1) Vomiting Nausea presence: unspecified Vomiting Intractability: unspecified Vomiting type: unspecified Qualified Code(s): R11.10 - Vomiting, unspecified
[2018-08-25] MEDS: SUCRALFATE 1 GM TAB PO SCH ×3 (12:28→19:52)
[2018-08-25] MEDS ORDERED: SUCRALFATE 1 GM/10 ML UDC PO SCH (13:00)
[2018-08-25] MEDS: PANTOprazole 40 MG TAB PO SCH (19:52)
[2018-08-26 07:07] LABS: Hematocrit (blood only) 35.2 % (42-52); Hemoglobin 11.5 g/dL (14.0-18.0)
--- NOTE | 2018-08-26 08:11 | Discharge Summary ---
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 Presented one day prior with nausea and dark colored vomitus. 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 He was apparently vomiting for two hours. Initially the vomitus looked like mucous and then turned gbgzke-flbkph-degp. He was sent for a CT of the abdomen which did not demonstrate any acute findings. The contrast unfortunately partially extravasated into his R arm. His vomiting resolved and his Hb was near-normal. His arm did not show significant inflammation so that he was subsequently DCd. He returns today as he is lethargic and has been in a curled-up position all day. He has not had a fever, rigors or additional vomiting but is not as active as usual and appears agitated. A repeat Hb did not show a significant drop in his hemoglobin. A doppler of the RUE did however demonstrate a brachial DVT. The pt could not participate in the HPI/ROS and exam is limited as he is agitated and cannot obey commands. A history is obtained from family an a rfid systems engineer at bedside. PMH: 1) CAD/NSTEMI - not confirmed 2) MR - nonverbal 3) CVA - not confirmed 4) Distant history of seizures 5) Anxiety 6) Dysphagia with history of aspiration - puree diet Surgical: No surgical history Social: Lives at home with full-time rfid systems engineer Family: Mother NM in her 90s Father Leukemia in his 80s Admission Exam Per Admitting Provider General: Very thin, agitated, elderly male - tends to yell and swat me away ENT: No erythema or exudates - could not examine oral cavity Eyes: JAIME, EOMI Head and neck: Normocephalic, atraumatic, No JVD, neck is supple. Chest/heart: Nontender, S1,2, RRR, no murmurs, no gallops Lungs: Limited effort - no overt abnormalities Abdomen: I was able to press firmly on the abdomen with eliciting a reaction Neuro: No acute changes aside from lethargy per family Musculoskeletal: No joint inflammation, muscle tenderness, FROM Skin: No acute rashes or ulcers Extremities: No clubbing, cyanosis, edema of LEs - RUE is mildly inflamed - not significantly tender Principal Diagnosis GI BLEED, CONTRAST EXTRAVASATION Discharge Exam General: Thin agitated elderly male HEENT: Normocephalic atraumatic Neck: Normal visual inspection Cardiac: Regular rate and rhythm, no murmurs rubs or gallops Respiratory: CTA BL GI: Normal bowel sounds, soft, nontender, nondistended MSK: Moves extremities Skin: No acute rashes Neuro: Nonverbal Psych: Intermittently agitated Discharge Data Allergies Allergy/AdvReac Type Severity Reaction Status Date / Time amoxicillin [From Augmentin] Allergy Intermediate Rash Unverified 08/24/18 17:07 clavulanic acid Allergy Intermediate Rash Unverified 08/24/18 17:07 [From Augmentin] Consultations 08/24/18 20:00 ED Decision to Admit Stat 08/25/18 08:20 Consult Gastroenterology Routine Ordered Studies 08/24/18 16:21 US venous doppler UE RT Stat Hospital Course (1) GI (gastrointestinal bleed): PCP to do -Determine family's desires for anticoagulation for brachial DVT. 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 Presented one day prior with nausea and dark colored vomitus. 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 He was apparently vomiting for two hours. Initially the vomitus looked like mucous and then turned oofngx-xnlivb-ggoj. He was sent for a CT of the abdomen which did not demonstrate any acute findings. The contrast unfortunately partially extravasated into his R arm. His vomiting resolved and his Hb was near-normal. His arm did not show significant inflammation so that he was subsequently DCd. He returns today as he is lethargic and has been in a curled-up position all day. He has not had a fever, rigors or additional vomiting but is not as active as usual and appears agitated. A repeat Hb did not show a significant drop in his hemoglobin. A doppler of the RUE did however demonstrate a brachial DVT. 1) Coffee-ground emesis one day prior has resolved Upon admission was made n.p.o. overnight, hemoglobin had a marginal drop overnight from 11.9-10.8. Given the fact that there is this patient's second presentation for similar symptoms gastroenterology was consulted. They rec ommended pantoprazole 40 mg twice daily, Carafate 1 g before meals at bedtime, and supportive care. Patient's hemoglobin was monitored and was stable around 11. The day of discharge hemoglobin was 11.5. Patient should continue recommendations per gastroenterology and may follow-up with them as outpatient as needed. 2) Lethargy/agitation: no clear evidence of infection. Admission UA and chest x-ray were negative for acute findings. Could consider outpatient speech and swallow follow-up to look for aspiration. May be secondary to electrolyte disturbances related to nausea and vomiting. Appears to resolved during hospitalization. 3) DVT sustained brachial DVT during CT when IV extravasated contrast fluid in his arm. Per discussion with family, they do not want invasive procedures to remove clot. Will hold anticoagulation therapy for the time being, and defer to outpatient PCP for resumption of anticoagulation. 4) Agitation/anxiety - -Patient has scheduled Valium 3 times daily, with as needed FENa: Heart healthy nectar thick Code Status: DNR/DNI DVT PPX: Holding in the setting of suspected GI bleed Dispo: Home (2) DVT (deep venous thrombosis): Total Time Total Time Spent Total Time Spent (In Minutes): >30 Discharge Plan Discharge Items Patient Disposition: Home - Home Health Services Reason For Visit: GI BLEED, CONTRAST EXTRAVASATION Discharge Diagnosis: GI BLEED, CONTRAST EXTRAVASATION, brachial DVT Discharge Goals: Diagnostic testing Activity: Resume your previous activity Activity Comment: as tolerated Non-emergency contact: Primary Care Provider Call non-emergency contact if: your symptoms worsen and your temperature is above 100.5 Follow-up/Referrals: Malik Griffin III, MD [Primary Care Provider] - (Please, follow up at Dr. Griffin's office. A nurse from this office will call with the appointment details. If you have any questions, call the office at [phone].) Diet: Heart Healthy Addtl Provider Instructions: Care instructions: You were admitted to [facility] for treatment of GI BLEED, CONTRAST EXTRAVASATION, brachial DVT. A discharge summary will be sent to your primary care physician to ensure continuity of care.Please bring this discharge summary with you to your next office appointment so that your provider can review it at that time. Follow-up appointments: - Keep all your follow-up appointments as already scheduled. If you cannot make an appointment, notify your provider. - Please call to request a follow-up appointment with your primary care physician within one week of discharge. Please let us know if you are unable to obtain an appointment - Patient does not currently have an active GI bleed -Per conversation with patient's family do not want any aggressive treatment of the patient's brachial DVT. Given the questionable recent history of GI bleed anticoagulation should be held for approximately 2 weeks status post discharge. - Please be sure to have a conversation with your primary care provider regarding anticoagulation for brachial DVT PCP to do -Determine family's desires for anticoagulation for brachial DVT. 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 Presented one day prior with nausea and dark colored vomitus. 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 He was apparently vomiting for two hours. Initially the vomitus looked like mucous and then turned tvswuo-afbsrv-rbms. He was sent for a CT of the abdomen which did not demonstrate any acute findings. The contrast unfortunately partially extravasated into his R arm. His vomiting resolved and his Hb was near-normal. His arm did not show significant inflammation so that he was subsequently DCd. He returns today as he is lethargic and has been in a curled-up position all day. He has not had a fever, rigors or additional vomiting but is not as active as usual and appears agitated. A repeat Hb did not show a significant drop in his hemoglobin. A doppler of the RUE did however demonstrate a brachial DVT. 1) Coffee-ground emesis one day prior has resolved Upon admission was made n.p.o. overnight, hemoglobin had a marginal drop overnight from 11.9-10.8. Given the fact that there is this patient's second presentation for similar symptoms gastroenterology was consulted. They recommended pantoprazole 40 mg twice daily, Carafate 1 g before meals at bedtime, and supportive care. Patient's hemoglobin was monitored and was stable around 11. The day of discharge hemoglobin was 11.5. Patient should continue recommendations per gastroenterology and may follow-up with them as outpatient as needed. 2) Lethargy/agitation: no clear evidence of infection. Admission UA and chest x-ray were negative for acute findings. Could consider outpatient speech and swallow follow-up to look for aspiration. May be secondary to electrolyte disturbances related to nausea and vomiting. Appears to resolved during hospitalization. 3) DVT sustained brachial DVT during CT when IV extravasated contrast fluid in his arm. Per discussion with family, they do not want invasive procedures to remove clot. Will hold anticoagulation therapy for the time being, and defer to outpatient PCP for resumption of anticoagulation. -Signs and symptoms of progression to pulmonary embolism include shortness of breath, fever, respiratory distress, pain with inspiration, malaise, poor SPO2. -Given recent history of questionable GI bleed anticoagulation is contraindicated until 2 weeks status post discharge. 4) Agitation/anxiety - -Patient has scheduled Valium 3 times daily, with as needed Medications: - Your medication list has been reviewed and reconciled upon discharge to ensure accuracy and continuity of care. - You are provided with a list of all your current medications at this time. Please review this list closely and make note of any changes. - Please take all of your medications exactly as prescribed. - Tell your primary care provider if you cannot afford your medications. - Call your primary care provider if you are having any side effects or any other problems. - Call your primary care provider before taking any over the counter medications or supplements, including herbals and vitamins, because some of these may interact with your current medications and/or make your symptoms worse. Your medications have been called into [facility] in [facility] You may crush sucralfate tablets Symptoms: Please call your primary care provider for symptoms including, but not limited to: fevers (temperatures greater than 100.4), chills, intractable nausea or vomiting, diarrhea, rash, shortness of breath, bleeding, pain, or if you experience any worsening of the symptoms that brought you to the hospital. For EMERGENCY and VERY SERIOUS health-related issues, such as chest pain, shortness of breath, or sudden onset of the symptoms that brought you to the hospital, you may need to call 911 or go directly to the Emergency Room It has been our privilege to take care of you during your hospital stay. And Above All Else Fell Better! Best Wishes, Dusty Jack MD PGY1 Resident, Family & Community Medicine [facility] Residency at [facility] - [address], [address] MC: [id number] [place] [address] Prescriptions: New sucralfate 1 gram Tablet 1 g PO QID 30 Days Qty: 120 RF: 3 pantoprazole 40 mg Tablet,Delayed Release (Dr/Ec) 40 mg PO BID Qty: 60 RF: 3 Continued nystatin [Nystop] 100,000 unit/gram powder 1 applic Topical BID RF: 0 diazepam [Valium] 2 mg tablet 2 mg PO TID 28 Days Qty: 84 RF: 0 acetaminophen [Tylenol] 325 mg capsule 650 mg PO Q4H PRN (Reason: Pain) RF: 0 carbamide peroxide [Debrox] 6.5 % drops 5 drp otic (ear) BID RF: 0 clotrimazole 1 % cream 1 applic Topical .COMPLEX RF: 0 ketoconazole [Nizoral] 2 % shampoo 1 applic Topical 3XWK RF: 0 loperamide [Imodium A-D] 2 mg capsule 2 mg PO .COMPLEX RF: 0 Vicks DayQuil Severe Cold-Flu [id number] mg tablet 2 tab PO Q6H PRN (Reason: Cold Symptoms) RF: 0 magnesium hydroxide [Milk of Magnesia] 400 mg/5 mL Suspension 1 dose PO 3XWK RF: 0 metronidazole 0.75 % gel 1 applic Topical DAILY PRN (Reason: Acne) RF: 0 finasteride [Proscar] 5 mg tablet 5 mg PO QAM RF: 0 diazepam 5 mg Tablet 5 mg PO UD RF: 0 docusate sodium [Colace] 100 mg capsule 100 mg PO WK RF: 0 ondansetron HCl [Zofran] 4 mg tablet 4 mg PO DAILY PRN (Reason: nausea and vomiting) Qty: 6 RF: 0 Discontinued pantoprazole 40 mg tablet,delayed release (DR/EC) 40 mg PO DAILY Qty: 30 RF: 1 Stand-Alone Forms: [facility] Discharge Orders: Discharge Order (Routine); Ordered 08/26/18 Ordered By: Dusty Jack Admission Data Admit Date/Time: 08/24/18 21:15 Attending Provider: Melanie Harris Admit Provider: Sae Davila Primary Care Provider: Malik Griffin III Other Providers: Sae Davila ; Stephen Baltazar ; Sangita Duenas ; Maria C Bautista Service: Telemetry Other Interventions: Discharge Summary Assessment (RN) Last Done: 08/26/18 13:09 DC Date/Time DO NOT enter until pt leaves facility: 08/26/18 17:28 Supervising Physician Co-Signing Physician Notes Patient seen and evaluated independently of Dr. Jack. Agree with history, exam findings, assessment and plan of care as outlined. 83 y/o M Hx anoxic brain injury - nonverbal, CAD/NM, CVA, anxiety disorder, dysphagia/aspiration admitted with concerns for upper GI bleed after presenting with coffee ground emesis, right brachial DVT and decreased energy/agitation. He has not had any further episode of emesis since admission. No melena. Eating and seems to be back to baseline per caregiver at the bedside. Elderly appearing male. Nonverbal. Abdomen +BS, soft, nontender. 1) Coffee-ground emesis one day prior has resolved hgb stable. - continuePPI BID, Carafate AC and HS per GI. Appreciate GI recommendations. No scope at this point. 2) Lethargy/agitation - no clear evidence of infection and seems to be back to his baseline. 3) DVT R brachial secondary to IV line. Discussed with sister yesterday that he would need to be anticoagulated, but in the setting of a possible GI bleed, this is contraindicated. Discussed the possibility of having vascular see the patient to see about removing the clot, but sister does not feel that this would be in line with the goals of care which includes limiting invasive procedures. Discussed that we would wait 4 or 5 days before starting anticoagulation. This can be done by his outpatient provider. Would recommend Eliquis given the lower bleeding risk and easy of administration compared to Coumadin if anticoagulation is desired. 4) Agitation/anxiety - Valium PRN DNR/DNI Dispo: discharge home today. I personally spent 40 minutes discharge planning/coordinating care for this patient. Resident Activity Tracking Resident Involvement: Resident Care Provided Care Provided: Adult Hospital Medicine
[2018-08-26] MEDS: CARBAMIDE PEROXIDE 6.5% 15 ML BTL OT SCH (09:21)
[2018-08-26] MEDS: NYSTATIN POWDER 15GM BTL EXT SCH (09:22)
[2018-08-26] MEDS: SUCRALFATE 1 GM TAB PO SCH ×2 (09:22→13:48)
[2018-08-26] MEDS: PANTOprazole 40 MG TAB PO SCH (10:13)
== END 2018-08-26 17:28 | disposition home health service (06) | DRG 378 ==
LOC: ED 15:48 → SUATTDRO 21:15 → 2S 21:15

== ENCOUNTER 2018-11-18 13:59 | Inpatient (IN) ==
[2018-11-18] MEDS ORDERED: ONDANSETRON INJ 2 MG/ML 2 ML VIAL IV STA (14:33)
[2018-11-18] MEDS ORDERED: SODIUM CHLORIDE 0.9% 1000ML 1,000 ML IV SCH (14:45)
--- NOTE | 2018-11-18 15:24 | Emergency Department Note ---
Entered by Marce Mueller acting as a scribe for Elbert Allen DO History of Present Illness General Chief complaint: Vomiting Source: other (caregiver) History of Present Illness Provider complaint: vomiting Onset (ago): hour(s) less than 1 Location: abdomen Pain Consistency: + intermittent Associated symptoms: + denies other symptoms The patient is an 83 y/o male who presents to the emergency department for evaluation of intermittent vomiting that began prior to arrival. The caregiver states she gave him his 2 pm medications and then began throwing up. She notes that he seems short of breath as well. The caregiver reports that the patient is confine d to a wheel chair, and does not show pain, though he seemed ok prior to this. HPI and ROS limited secondary to patients condition. Home Medications Home Medications Medication Instructions Recorded Confirmed Type magnesium hydroxide [Milk of 1 dose PO 3XWK 01/03/18 11/18/18 History Magnesia] metronidazole 1 applic TOPICAL DAILY PRN 01/03/18 11/18/18 History acetaminophen 325 mg capsule 650 mg PO Q4H PRN cap 07/26/18 11/18/18 History carbamide peroxide 6.5 % ear drops 5 drp OTB BID ml 07/26/18 11/18/18 History clotrimazole 1 % topical cream 1 applic TOPICAL DIRECTED PRN 07/26/18 11/18/18 History loperamide 2 mg capsule 2 - 4 mg PO UD PRN MDD 16mg 07/26/18 11/18/18 History ondansetron HCl [Zofran] 4 mg PO DAILY PRN #6 tab 08/23/18 11/18/18 Rx pantoprazole 40 mg PO BID #60 tab 08/26/18 11/18/18 Rx ketoconazole 2 % shampoo 1 applic TOPICAL 3XWK #120 ml 11/17/18 11/18/18 Rx alum-mag hydroxide-simeth 30 ml PO Q4H PRN 11/18/18 11/18/18 History [Antacid-Simethicone] calamine phenolated 1 applic TOPICAL BID PRN 11/18/18 11/18/18 History dextromethorphan-guaifenesin 5 ml PO Q6H PRN 11/18/18 11/18/18 History [Robitussin Cough-Chest Jhonny DM] diazepam 4 mg PO TID 11/18/18 11/18/18 History docusate sodium [Colace] 100 mg PO WK 11/18/18 11/18/18 History finasteride [Proscar] 5 mg PO QAM 11/18/18 11/18/18 History nystatin [Nystop] 1 applic TOPICAL BID 11/18/18 11/18/18 History polyethylene glycol 3350 [Miralax] 17 g PO Q3D PRN 11/18/18 11/18/18 History triamcinolone acetonide 1 applic TOPICAL DAILY PRN 11/18/18 11/18/18 History Allergies Allergy/AdvReac Type Severity Reaction Status Date / Time amoxicillin [From Augmentin] Allergy Intermediate Rash Verified 11/18/18 15:18 clavulanic acid Allergy Intermediate Rash Verified 11/18/18 15:18 [From Augmentin] Past Med/Surg History Medical History Mitral regurgitation CVA (cerebral vascular accident) CAD (coronary artery disease) GI (gastrointestinal bleed) (Acute) DVT (deep venous thrombosis) (Acute) BPH (benign prostatic hyperplasia) (Chronic) Seizure (Chronic) Aspiration pneumonia Declining functional status Surgical History History of cataract surgery History of hernia repair Family History Sister Osteoporosis Breast cancer Other Diabetes Hypertension Social History Preferred Language: Hungarian Communication Ability: Impaired Beliefs That Will Affect Care: None marital status: Single Current Living Situation: Other Current Living Situation Comment: prison current occupational status: disabled Feels Safe at Home: Yes Safety Concerns: Feels Safe At This Time Smoking Status: Never smoker Hx Alcohol Use: No Hx Substance Use: No Review of Systems HPI and ROS limited secondary to patients condition. Physical Exam Vital Signs Vital Signs - 24 hr 11/18/18 14:21 11/18/18 14:57 11/18/18 16:17 Temperature 36.5 C Temperature Source Oral Sepsis Recent Fever Within 48 Hours No Sepsis New/Unexplained Change in Mental Status No Sepsis Action Taken by Nursing No Action Required Oxygen Flow Rate - Titration Pulse Oximetry Post Tiitration Pulse Rate 91 H 90 Pulse Rate [Apical] 92 H Respiratory Rate 24 22 Respiratory Depth Normal Blood Pressure 107/56 L Blood Pressure [Right Arm] Blood Pressure Mean 73 Blood Pressure Mean [Right Arm] Pulse Oximetry 94 93 90 Oxygen Delivery Method Nasal Cannula Oxymask Oxymask Oxygen Flow Rate 3 3.5 4 11/18/18 16:23 11/18/18 17:15 Temperature Temperature Source Sepsis Recent Fever Within 48 Hours Sepsis New/Unexplained Change in Mental Status Sepsis Action Taken by Nursing Oxygen Flow Rate - Titration 5 Pulse Oximetry Post Tiitration 92 Pulse Rate Pulse Rate [Apical] 110 H Respiratory Rate 22 Respiratory Depth Blood Pressure Blood Pressure [Right Arm] 106/97 Blood Pressure Mean Blood Pressure Mean [Right Arm] 100 Pulse Oximetry 87 L 92 Oxygen Delivery Method Room Air Nasal Cannula Oxygen Flow Rate 4 5 GENERAL: Patient is cachectic and frail-appearing. He does does not appear to be uncomfortable. EYES: The conjunctivae are clear. The pupils are round and reactive. EARS, NOSE, MOUTH AND THROAT: The nose is without any evidence of any deformity. Mucous membranes are moist tongue is midline NECK: The neck is nontender and supple. RESPIRATORY: Shallow respirations were noted. There were no abnormal breath sounds noted. CARDIOVASCULAR: Regular rate and rhythm noted there no murmurs rubs or gallops normal S1 normal S2 GASTROINTESTINAL: The abdomen is soft and nondistended. Palpation does not appear to elicit significant pain. MUSCULOSKELETAL/EXTREMITIES: No gross deformity was appreciated however the patient appears to be contracted in his lower extremities. SKIN: There is no obvious evidence of any rash. No pedal edema was noted. NEUROLOGIC: Patient is at his baseline according to his caregiver. Course 1428: Past medical records reviewed. The patient was evaluated in room C07. A complete history and physical exam was performed. 1630: I checked on the patient and spoke with the patietns sister. 1645: I spoke with Dr. Jack- [facility]. She will evaluate for further management. Administered Medications Discontinued Medications Diazepam (Valium) 2.5 mg IV NOW STA Stop: 11/18/18 17:34 Last Admin: 11/18/18 17:41 Dose: 2.5 mg Documented by: [id number] Sodium Chloride (Nss 1000ml) 1,000 mls @ 999 mls/hr IV .Q1H1M STEPHEN Stop: 11/18/18 15:45 Last Infusion: 11/18/18 17:14 Dose: 0 mls/hr Documented by: [id number] Admin: 11/18/18 16:16 Dose: 999 mls/hr Documented by: [id number] Ondansetron HCl (Zofran) 4 mg IV NOW STA Stop: 11/18/18 14:34 Last Admin: 11/18/18 15:13 Dose: 4 mg Documented by: [id number] Medical Decision Making Differential Diagnosis Differential diagnosis: Etiologies such as gastroenteritis, food borne illness, infections, appendicitis, diverticulitis, inflammatory bowel disease, obstruction, GI bleed, biliary pathology, as well as others were entertained. Medical Records Attestation: I reviewed the patient's medical records. Home Medications Current Medication List: was personally reviewed by me Laboratory Data Attestation: I reviewed the patient's lab results. Result diagrams: 11/18/18 15:04 11/18/18 15:04 Lab Results 11/18/18 11/18/18 11/18/18 Range/Units 15:04 15:04 15:04 WBC 6.66 (4.8-10.8) K/uL RBC 4.09 L (4.7-6.1) M/uL Hgb 12.1 L (14.0-18.0) g/dL Hct 38.0 L (42-52) % MCV 92.9 (80-100) fL MCH 29.6 (25-34) pg MCHC 31.8 L (32-36) g/dL RDW Std Deviation 49.8 H (36.4-46.3) fL RDW Coeff of Annemarie 14.7 H (11.5-14.5) % Plt Count 134 (130-400) K/uL MPV 12.1 H (7.4-10.4) fL Immature Gran % (Auto) 0.3 % Neut % (Auto) 73.4 % Lymph % (Auto) 15.9 % Cottle % (Auto) 7.8 % Eos % (Auto) 2.3 % Baso % (Auto) 0.3 % Immature Gran # (Auto) 0.02 (0.00-0.02) K/uL Neut # (Auto) 4.89 (1.4-6.5) K/uL Lymph # (Auto) 1.06 L (1.2-3.4) K/uL Cottle # (Auto) 0.52 (0.11-0.59) K/uL Eos # (Auto) 0.15 (0-0.5) K/uL Baso # (Auto) 0.02 (0-0.2) K/uL PT 10.5 (9.0-12.0) Seconds INR 1.0 (0.9-1.1) APTT 25.6 (21.0-31.0) Seconds PTT Ratio 0.9 Sodium 142 (136-145) mmol/L Potassium 3.8 (3.5-5.1) mmol/L Chloride 105 (98-107) mmol/L Carbon Dioxide 30 (21-32) mmol/L Anion Gap 7.0 (3-11) BUN 21 H (7-18) mg/dl Creatinine 0.90 (0.6-1.4) mg/dl Est Cr Clr Drug Dosing 40.1 ml/min Est GFR ( Amer) 92.5 Est GFR (Non-Af Amer) 79.8 BUN/Creatinine Ratio 23.2 H (10-20) Glucose 110 H (70-99) mg/dl Calcium 8.5 (8.5-10.1) mg/dl Total Bilirubin 0.6 (0.2-1) mg/dl AST 26 (15-37) U/L ALT 32 (12-78) U/L Alkaline Phosphatase 63 (45-117) U/L Troponin I < 0.015 (0-0.045) ng/ml Total Protein 7.2 (6.4-8.2) gm/dl Albumin 3.5 (3.4-5.0) gm/dl Globulin 3.7 (2.5-4.0) gm/dl Albumin/Globulin Ratio 0.9 (0.9-2) Lipase 179 (73-393) U/L Imaging Data Radiologist's Impression: Radiology results as stated below per my review and the radiologist's interpretation: ABDOMEN AND PELVIS CT WITHOUT CONTRAST CT DOSE: HISTORY: Vomiting. TECHNIQUE: Multiaxial CT images of the abdomen and pelvis were performed without contrast. A dose lowering technique was utilized adhering to the principles of ALARA. COMPARISON STUDY: Abdomen and pelvis CT 08/23/2018. FINDINGS: Patchy bilateral lower lobe densities, left greater than right. This favors a pneumonia, possibly secondary to aspiration. No pneumoperitoneum. No pneumatosis. Old, healed right-sided rib fractures. Minimal anterior wedging at L1 is likely chronic. Fluid-filled mildly thickened distal esophagus. Stable hypodense lesions within the liver likely representing cysts. The largest in the left hepatic lobe measures 2 cm. The unenhanced spleen, adrenal glands, pancreas, and kidneys are unremarkable. No hydronephrosis. No retroperitoneal lymphadenopathy. Suboptimal evaluation for bowel pathology due to the lack of in travenous and oral contrast. This also motion artifact within the upper to mid abdomen. Moderate well-formed stool within the distal colon and rectum. This remains unchanged. Colonic diverticulosis. No definite bowel wall thickening or obstruction. Normal bladder. Fluid-filled and mildly distended stomach. IMPRESSION: 1. Patchy bilateral lower lobe densities, left greater the right. This favors a pneumonia may be secondary to aspiration. 2. Fluid-filled mildly thickened distal esophagus. 3. Fluid-filled and mildly distended stomach. However, no evidence for bowel obstruction. 4. Additional chronic findings as described above. Electronically signed by: Charbel Dillon M.D. 11/18/2018 3:[address] chest wo con CLINICAL HISTORY: possible aspiration VOMITING, SHORTNESS OF BREATH. PATIENT ON 15 L OF OXYGEN COMPARISON STUDY: May 2017 CT DOSE: 409.23 mGy.cm TECHNIQUE: CT of the thorax was performed from the thoracic inlet to the lung b ases. Images are reviewed in the axial, sagittal, and coronal planes. IV contrast was not administered for this examination. A dose lowering technique was utilized adhering to the principles of ALARA. FINDINGS: Thyroid: Imaged portions of the thyroid gland are normal in appearance. Thoracic aorta: The thoracic aorta is normal in course and caliber, noting standard 3 vessel arch anatomy. Heart: The heart is borderline enlarged. There are mild coronary artery calcifications. There is no pericardial effusion. Lungs and pleural spaces: There is moderate respiratory motion artifact. There are ill-defined lingular and left lower lobe airspace opacities. There is lower lobe bronchial wall thickening with left lower lobe mucus plugging. The findings could be secondary to aspiration. There is lobular pleural thickening at the right lung base laterally, slightly increased when compared the preceding study. Mediastinum: There is a mildly enlarged 12 mm precarinal lymph node. There is fluid within the thoracic esophagus with mild distal esophageal wall thickening Lou: There is no evidence of pathologic hilar adenopathy given the limitations of a noncontrast study Axilla: There is no evidence of pathologic axillary lymphadenopathy Upper abdomen: Partially visualized upper abdominal viscera is within normal limits. Skeletal structures: There is a kyphoscoliosis. There are several thoracic compression deformities which are likely old. There are old rib deformities. 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 Moderately limited study from a technical standpoint 2. Ill-defined lingular and left lower lobe airspace opacities with bronchial wall thickening and left lower lobe mucus plugging. The findings could be secondary to aspiration. 3. Mild increase in the lobular pleural thickening at the right lung base laterally 4. 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 Mildly enlarged 12 mm precarinal lymph node 6. Fluid within the thoracic esophagus. Mild distal esophageal wall thickening. Electronically signed by: Harshal Brock M.D. 11/18/2018 3:36 PM ECG Data Attestation: I personally reviewed and interpreted this ECG as follows: Indication: vomiting Rate (beats per minute): 94 Findings: + 1st degree AV block, + PAC and + ST depression (Lateral) Comparison ECG Date: from (08/24/18) Change: the following changes noted Blood Pressure Blood Pressure Findings: Normal blood pressure MDM Narrative The patient is an 83-year-old male who presented to the emergency department from his personal custodial. Apparently the patient had an episode of emesis prior to arrival. He was having difficulty breathing when he arrived. He appears to have signs of aspiration on radiographic studies. He was treated with IV fluids IV antiemetics and supplemental oxygen. I discussed the patient's laboratory and radiographic studies with him his caregiver as well as his sister. Because of his symptoms I discussed his case with the on-call [facility] hospitalist group. They have agreed to evaluate the patient in the emergency department for further management disposition. The patient was resting comfortably on oxygen by mask. Talking to his sister it sounds as though he would not wish to be intubated or have advanced airway management at this time. I was called by the nursing staff to evaluate the patient. His respiratory status worsened significantly. He started having oxygen saturation that was low and then started having significant tachycardia. The patient's appearance appeared to be consistent with worsening aspiration. I reviewed the patient's DNR form that was filled out previously. At this time I will place the patient on BiPAP and give him medication to help him relax. He was also given a DuoNeb. I discussed his case again with the on-call [facility] so they were aware the patient's condition change. Impression & Plan Aspiration into airway, Nausea & vomiting, Hypoxia, Respiratory failure Critical Care Time Critical Care Time: Yes Total Critical Care Time: 45 I have personally spent greater than 45 minutes of critical care time in the direct management of this patient. This includes bedside care, interpretation of diagnostic studies, and testing, discussion with consultants, patient, and family members, and other required patient management activities. This 45 minutes is in excess of all separately billable procedures. Discharge Plan Visit Data Chief Complaint: Vomiting ED Provider: Elbert Allen Discharge Problem: Aspiration into airway, Nausea & vomiting, Hypoxia, Respiratory failure Patient Disposition: Being Evaluated by Hospitalist Forms Stand Alone Forms: My [facility] Prescriptions Prescriptions: No Action ketoconazole [Nizoral] 2 % shampoo 1 applic Topical 3XWK Qty: 120 RF: 5 acetaminophen [Tylenol] 325 mg capsule 650 mg PO Q4H PRN (Reason: PAIN/FEVER) RF: 0 carbamide peroxide [Debrox] 6.5 % drops 5 drp OTB BID RF: 0 clotrimazole 1 % cream 1 applic Topical DIRECTED PRN (Reason: PRN) RF: 0 loperamide [Imodium A-D] 2 mg capsule 2 - 4 mg PO UD MDD 16mg PRN (Reason: Diarrhea) RF: 0 magnesium hydroxide [Milk of Magnesia] 400 mg/5 mL Suspension 1 dose PO 3XWK RF: 0 metronidazole 0.75 % gel 1 applic Topical DAILY PRN (Reason: Acne) RF: 0 ondansetron HCl [Zofran] 4 mg tablet 4 mg PO DAILY PRN (Reason: nausea and vomiting) Qty: 6 RF: 0 pantoprazole 40 mg Tablet,Delayed Release (Dr/Ec) 40 mg PO BID Qty: 60 RF: 3 Robitussin Cough-Chest Jhonny DM 5-100 mg/5 mL Liquid 5 ml PO Q6H PRN (Reason: cough/congestion) RF: 0 polyethylene glycol 3350 [Miralax] 17 gram/dose Powder 17 g PO Q3D PRN (Reason: Constipation) RF: 0 Antacid-Simethicone 400-400-40 mg/5 mL Suspension 30 ml PO Q4H PRN (Reason: upset stomach/vomiting) RF: 0 diazepam 2 mg tablet 4 mg PO TID RF: 0 docusate sodium [Colace] 100 mg capsule 100 mg PO WK RF: 0 nystatin [Nystop] 100,000 unit/gram powder 1 applic Topical BID RF: 0 finasteride [Proscar] 5 mg tablet 5 mg PO QAM RF: 0 calamine phenolated Lotion 1 applic TOPICAL BID PRN (Reason: PRN) RF: 0 triamcinolone acetonide 0.025 % Cream 1 applic TOPICAL DAILY PRN (Reason: irritation of skin) RF: 0 Referrals Referrals: Malik Griffin III, MD [Primary Care Provider] - Discharge Problem: Aspiration into airway Qualifiers: Encounter type: initial encounter Qualified Code(s): T17.908A - Unspecified foreign body in respiratory tract, part unspecified causing other injury, initial encounter Nausea & vomiting Qualifiers: Vomiting type: unspecified Vomiting Intractability: unspecified Qualified Code(s): R11.2 - Nausea with vomiting, unspecified Respiratory failure Qualifiers: Chronicity: acute Respiratory failure complication: hypoxia Qualified Code(s): J96.01 - Acute respiratory failure with hypoxia The scribe's documentation has been prepared under my direction and personally reviewed by me in its entirety. I confirm that the note above accurately reflects all work, treatment, procedures, and medical decision making performed by me.
[2018-11-18 15:29] LABS: Basophils # (auto) 0.02 K/uL (0-0.2); Basophils % (auto) 0.3 %; Eosinophils # (auto) 0.15 K/uL (0-0.5); Eosinophils % (auto) 2.3 %; Hemoglobin 12.1 g/dL (14.0-18.0); Immature Granulocytes # (auto) 0.02 K/uL (0.00-0.02); Immature Granulocytes % (auto) 0.3 %; Lymphocytes # (auto) 1.06 K/uL (1.2-3.4); Lymphocytes % (auto) 15.9 %; Mean Corpuscular Hemoglobin 29.6 pg (25-34); Mean Corpuscular Hgb Conc 31.8 g/dL (32-36); Mean Corpuscular Volume 92.9 fL (80-100); Mean Platelet Volume 12.1 fL (7.4-10.4); Monocytes # (auto) 0.52 K/uL (0.11-0.59); Monocytes % (auto) 7.8 %; Neutrophils # (auto) 4.89 K/uL (1.4-6.5); Neutrophils % (auto) 73.4 %; Platelet Count 134 K/uL (130-400); RDW Coefficient of Variation 14.7 % (11.5-14.5); RDW Standard Deviation 49.8 fL (36.4-46.3); Red Blood Count 4.09 M/uL (4.7-6.1); White Blood Count 6.66 K/uL (4.8-10.8)
--- NOTE | 2018-11-18 15:37 | CT Scan Report ---
CT chest wo con CLINICAL HISTORY: possible aspiration VOMITING, SHORTNESS OF BREATH. PATIENT ON 15 L OF OXYGEN COMPARISON STUDY: May 2017 CT DOSE: 409.23 mGy.cm TECHNIQUE: CT of the thorax was performed from the thoracic inlet to the lung bases. Images are revi ewed in the axial, sagittal, and coronal planes. IV contrast was not administered for this examinatio n. A dose lowering technique was utilized adhering to the principles of ALARA. FINDINGS: Thyroid: Imaged portions of the thyroid gland are normal in appearance. Thoracic aorta: The thoracic aorta is normal in course and caliber, noting standard 3 vessel arch tuan cecil. Heart: The heart is borderline enlarged. There are mild coronary artery calcifications. There is no p ericardial effusion. Lungs and pleural spaces: There is moderate respiratory motion artifact. There are ill-defined lingul ar and left lower lobe airspace opacities. There is lower lobe bronchial wall thickening with left lo wer lobe mucus plugging. The findings could be secondary to aspiration. There is lobular pleural thic kening at the right lung base laterally, slightly increased when compared the preceding study. Mediastinum: There is a mildly enlarged 12 mm precarinal lymph node. There is fluid within the thorac ic esophagus with mild distal esophageal wall thickening Lou: There is no evidence of pathologic hilar adenopathy given the limitations of a noncontrast stud y Axilla: There is no evidence of pathologic axillary lymphadenopathy Upper abdomen: Partially visualized upper abdominal viscera is within normal limits. Skeletal structures: There is a kyphoscoliosis. There are several thoracic compression deformities wh ich are likely old. There are old rib deformities. There is a probable right seventh rib osteochondro ma IMPRESSION: 1. Moderately limited study from a technical standpoint 2. Ill-defined lingular and left lower lobe airspace opacities with bronchial wall thickening and lef t lower lobe mucus plugging. The findings could be secondary to aspiration. 3. Mild increase in the lobular pleural thickening at the right lung base laterally 4. 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 Mildly enlarged 12 mm precarinal lymph node 6. Fluid within the thoracic esophagus. Mild distal esophageal wall thickening. Electronically signed by: Harshal Brock M.D. 11/18/2018 3:36 PM
[2018-11-18 15:40] LABS: Partial Thromboplastin Ratio 0.9; Partial Thromboplastin Time 25.6 Seconds (21.0-31.0); Prothrombin Time 10.5 Seconds (9.0-12.0)
[2018-11-18 15:46] LABS: Alanine Aminotransferase 32 U/L (12-78); Albumin Level 3.5 gm/dl (3.4-5.0); Aspartate Aminotransferase 26 U/L (15-37); BUN Creatinine Ratio 23.2 (10-20); Blood Urea Nitrogen 21 mg/dl (7-18); Calcium 8.5 mg/dl (8.5-10.1); Carbon Dioxide 30 mmol/L (21-32); Chloride 105 mmol/L (98-107); Creatinine Clr Calc Pharmacy 40.1 ml/min; Est GFR (African American) 92.5; Est GFR (Non-African American) 79.8; Glucose 110 mg/dl (70-99); Lipase 179 U/L (73-393); Potassium 3.8 mmol/L (3.5-5.1); Sodium 142 mmol/L (136-145)
--- NOTE | 2018-11-18 15:47 | CT Scan Report ---
ABDOMEN AND PELVIS CT WITHOUT CONTRAST CT DOSE: HISTORY: Vomiting. TECHNIQUE: Multiaxial CT images of the abdomen and pelvis were performed without contrast. A dose lo wering technique was utilized adhering to the principles of ALARA. COMPARISON STUDY: Abdomen and pelvis CT 08/23/2018. FINDINGS: Patchy bilateral lower lobe densities, left greater than right. This favors a pneumonia, po ssibly secondary to aspiration. No pneumoperitoneum. No pneumatosis. Old, healed right-sided rib frac tures. Minimal anterior wedging at L1 is likely chronic. Fluid-filled mildly thickened distal esophag us. Stable hypodense lesions within the liver likely representing cysts. The largest in the left hepa tic lobe measures 2 cm. The unenhanced spleen, adrenal glands, pancreas, and kidneys are unremarkable . No hydronephrosis. No retroperitoneal lymphadenopathy. Suboptimal evaluation for bowel pathology du e to the lack of intravenous and oral contrast. This also motion artifact within the upper to mid abd omen. Moderate well-formed stool within the distal colon and rectum. This remains unchanged. Colonic diverticulosis. No definite bowel wall thickening or obstruction. Normal bladder. Fluid-filled and mi ldly distended stomach. IMPRESSION: 1. Patchy bilateral lower lobe densities, left greater the right. This favors a pneumonia may be seco ndary to aspiration. 2. Fluid-filled mildly thickened distal esophagus. 3. Fluid-filled and mildly distended stomach. However, no evidence for bowel obstruction. 4. Additional chronic findings as described above. Electronically signed by: Charbel Dillon M.D. 11/18/2018 3:45 PM
[2018-11-18 15:51] LABS: Albumin Globulin Ratio 0.9 (0.9-2); Alkaline Phosphatase 63 U/L (45-117); Bilirubin,Total 0.6 mg/dl (0.2-1); Globulin 3.7 gm/dl (2.5-4.0); Total Protein 7.2 gm/dl (6.4-8.2); Troponin I < 0.015 ng/ml (0-0.045)
[2018-11-18] MEDS ORDERED: ALBUT/IPRATROP 3MG/0.5MG NEB 3 ML VIAL NEB STA (17:33)
[2018-11-18] MEDS ORDERED: DIAZEPAM 5 MG/ML INJ 10ML VIAL IV STA (17:33)
[2018-11-18] MEDS ORDERED: ADENOSINE IV SOLN 3 MG/ML 2 ML VIAL IV STA (18:24)
[2018-11-18] MEDS ORDERED: SODIUM CHLORIDE 0.9% 500 ML IV ONE (18:32)
[2018-11-18] MEDS ORDERED: ONDANSETRON INJ 2 MG/ML 2 ML VIAL ONE (19:02)
[2018-11-18] MEDS ORDERED: MoRPHine SULFATE 2 MG/ML CARP IV STA (20:06)
[2018-11-18] MEDS ORDERED: NON-FORMULARY MEDICATION (Acetaminophen [Tylenol] 650 MG) PO PRN (21:20)
[2018-11-18] MEDS ORDERED: POLYETHYLENE (MIRALAX) 17 GM PACK PO PRN (21:20)
[2018-11-18] MEDS ORDERED: ONDANSETRON INJ 2 MG/ML 2 ML VIAL IV PRN (21:20)
[2018-11-18] MEDS ORDERED: ALUMINUM/MAGNESIUM/SIMETH (MAALOX MAX) 30 ML UDC PO PRN (21:20)
[2018-11-18] MEDS ORDERED: GUAIFENESIN/DEXTROM SYRUP 100MG/10MG 5ML UDC PO PRN (21:20)
[2018-11-18] MEDS ORDERED: LORazepam 1 MG/2 ML VIAL IV PRN (21:20)
[2018-11-18] MEDS ORDERED: ACETAMINOPHEN 325 MG TAB PO PRN (21:20)
[2018-11-18] MEDS ORDERED: LORazepam 2 MG/4 ML VIAL ONE (21:27)
[2018-11-18] MEDS ORDERED: MoRPHine SULFATE 2 MG/ML CARP IV PRN ×2 (21:31→21:33)
--- NOTE | 2018-11-18 21:33 | History & Physical Report ---
Date of Service November 18, 2018 Assessment & Plan (1) Aspiration into airway: 83-year-old male with multiple medical problems, poor functional baselinewheelchair-bound and nonverbal presenting with acute hypoxic respiratory failure after an aspiration event. Patient with rapid decline in respiratory status while in the ER requiring BiPAP support, subsequent vomiting with additional aspiration. I had a lengthy discussion with patient's sister, Shabnam Steele ([phone]). She reports that her brother has had functional limitations since , possible cerebral palsy. He currently resides in a retirement. Quite limited at baseline. She recently signed the paperwork to make him DNR/DNI. I discussed with her the severity of her brother's illness; that he was presently in respiratory distress requiring support with BiPAP and that he was not doing well. She stated that she wishes to make him comfortable and not to pursue any additional testing or procedures. She is aware that her brother will most likely pass away from his current illness. Again, she reaffirmed that she wishes him to be DNR/DNI/comfort measures only. -Admit to medical floor, comfort measures only -Comfort measures to include Ativan as needed for anxiety, morphine as needed for pain or air hunger, atropine as needed for secretions, Zofran as needed for nausea or vomiting -Supplemental oxygen as needed for comfort. No additional BiPAP -Palliative care consultation Present on Admission?: Yes (2) Nausea & vomiting: (3) Hypoxia: (4) Respiratory failure: (5) CVA (cerebral vascular accident): (6) CAD (coronary artery disease): (7) GI (gastrointestinal bleed): History of Present Illness Chief Complaint: Aspiration, hypoxic respiratory failure Primary Care Provider: Malik Griffin MD Isael Delgado is an 83-year-old male with history of developmental delay, prior stroke, seizure. At baseline the patient is confined to a wheelchair and is nonverbal. Has difficulty communicating his needs as well as pain. He is brought to the emergency room this afternoon by a caregiver with concerns of nausea, vomiting and respiratory distress. Caregiver reports that she administered his 2 PM medications without difficulty. Shortly after the patient had multiple episodes of emesis, liquid/dark green. Patient then became short of breath and tachypneic. Upon arrival to the ER he was found to be afebrile, heart rate of 91, respiratory rate of 24 saturating 94% on 3 L nasal cannula. His respiratory status rapidly declined and he developed respiratory rates in the 40s and became hypoxic requiring BiPAP, tachycardic to 145 bpm. Patient was on high levels of BiPAP, 16/8 100% FiO2 with some improvement in saturation. He remained tachypneic, heart rate began to improve. Patient had an episode of vomiting into his BiPAP mask with additional aspiration. Patient is unable to verbalize pain or complaints. Caregiver at bedside. I contacted patient's sister and medical decision maker - Shabnam Hernandez . She informed me that the patient was recently made DNR/DNI. She does not wish to pursue any aggressive treatments or have any additional procedures performed. She requests that we make the patient as comfortable as possible. I told her that given his current status I expect that Mr. Delgado will pass away this evening. Allergies Allergy/AdvReac Type Severity Reaction Status Date / Time amoxicillin [From Augmentin] Allergy Intermediate Rash Verified 11/18/18 15:18 clavulanic acid Allergy Intermediate Rash Verified 11/18/18 15:18 [From Augmentin] Home Medications Home Medications Medication Instructions Recorded Confirmed Type magnesium hydroxide [Milk of 1 dose PO 3XWK 01/03/18 11/18/18 History Magnesia] metronidazole 1 applic TOPICAL DAILY PRN 01/03/18 11/18/18 History acetaminophen 325 mg capsule 650 mg PO Q4H PRN cap 07/26/18 11/18/18 History carbamide peroxide 6.5 % ear drops 5 drp OTB BID ml 07/26/18 11/18/18 History clotrimazole 1 % topical cream 1 applic TOPICAL DIRECTED PRN 07/26/18 11/18/18 History loperamide 2 mg capsule 2 - 4 mg PO UD PRN MDD 16mg 07/26/18 11/18/18 History ondansetron HCl [Zofran] 4 mg PO DAILY PRN #6 tab 08/23/18 11/18/18 Rx pantoprazole 40 mg PO BID #60 tab 08/26/18 11/18/18 Rx ketoconazole 2 % shampoo 1 applic TOPICAL 3XWK #120 ml 11/17/18 11/18/18 Rx alum-mag hydroxide-simeth 30 ml PO Q4H PRN 11/18/18 11/18/18 History [Antacid-Simethicone] calamine phenolated 1 applic TOPICAL BID PRN 11/18/18 11/18/18 History dextromethorphan-guaifenesin 5 ml PO Q6H PRN 11/18/18 11/18/18 History [Robitussin Cough-Chest Jhonny DM] diazepam 4 mg PO TID 11/18/18 11/18/18 History docusate sodium [Colace] 100 mg PO WK 11/18/18 11/18/18 History finasteride [Proscar] 5 mg PO QAM 11/18/18 11/18/18 History nystatin [Nystop] 1 applic TOPICAL BID 11/18/18 11/18/18 History polyethylene glycol 3350 [Miralax] 17 g PO Q3D PRN 11/18/18 11/18/18 History triamcinolone acetonide 1 applic TOPICAL DAILY PRN 11/18/18 11/18/18 History Past Med/Surg History Medical History Mitral regurgitation CVA (cerebral vascular accident) CAD (coronary artery disease) GI (gastrointestinal bleed) (Acute) DVT (deep venous thrombosis) (Acute) BPH (benign prostatic hyperplasia) (Chronic) Seizure (Chronic) Aspiration pneumonia Declining functional status Surgical History History of cataract surgery History of hernia repair Family History Sister Osteoporosis Breast cancer Other Diabetes Hypertension Social History Preferred Language: Mohawk Communication Ability: Impaired Beliefs That Will Affect Care: None marital status: Single Current Living Situation: Other Current Living Situation Comment: retirement current occupational status: disabled Feels Safe at Home: Yes Safety Concerns: Feels Safe At This Time Smoking Status: Never smoker Hx Alcohol Use: No Hx Substance Use: No Review of Systems Review of Systems: Unobtainable due to mental health condition and Unobtainable due to cognitive status Physical Exam Physical Exam: General: Elderly, frail patient laying in bed, marked flexion contractures, acutely ill in appearance with tachypnea Skin: warm, dry, intact HEENT: NC/AT, PERRL, dry mucus membranes, poor intact, no oropharyngeal lesions, neck flexed but supple, trachea midline Heart: +S1/S2, regular, tachycardic with ectopy, no m/r/g Lungs: Patient respiratory distress, tachypneic, using accessory muscles to breathe, significant upper airway noise, equal air entry bilaterally with coarse breath sounds throughout L > R Abd: +BS, soft, ND, no ascites Ext: contracted, no edema/clubbing/cyanosis Neuro: patient does not follow commands Results & Data Vital Signs (Past 12 Hours) Vital Signs Temp Pulse Pulse Resp BP BP Pulse Ox 11/18/18 21:01 125 H 40 H 69/52 L 94 11/18/18 21:00 124 H 39 H 73/48 L 93 11/18/18 20:30 129 H 44 H 88/58 L 91 11/18/18 20:25 127 H 48 H 85/53 L 89 L 11/18/18 20:00 129 H 41 H 89/52 L 87 L 11/18/18 19:38 130 H 46 H 81/53 L 82 L 11/18/18 19:10 130 H 22 84 L 11/18/18 19:01 135 H 33 H 90/76 L 70 L 11/18/18 18:00 60 L 11/18/18 17:58 145 H 145 H 36 H 78 L 11/18/18 17:15 110 H 22 106/97 92 11/18/18 16:23 87 L 11/18/18 16:17 92 H 22 90 11/18/18 14:57 90 93 11/18/18 14:21 36.5 C 91 H 24 107/56 L 94 Laboratory Results Lab Results 11/18/18 11/18/18 11/18/18 Range/Units 15:04 15:04 15:04 WBC 6.66 (4.8-10.8) K/uL RBC 4.09 L (4.7-6.1) M/uL Hgb 12.1 L (14.0-18.0) g/dL Hct 38.0 L (42-52) % MCV 92.9 (80-100) fL MCH 29.6 (25-34) pg MCHC 31.8 L (32-36) g/dL RDW Std Deviation 49.8 H (36.4-46.3) fL RDW Coeff of Annemarie 14.7 H (11.5-14.5) % Plt Count 134 (130-400) K/uL MPV 12.1 H (7.4-10.4) fL Immature Gran % (Auto) 0.3 % Neut % (Auto) 73.4 % Lymph % (Auto) 15.9 % [place] % (Auto) 7.8 % Eos % (Auto) 2.3 % Baso % (Auto) 0.3 % Immature Gran # (Auto) 0.02 (0.00-0.02) K/uL Neut # (Auto) 4.89 (1.4-6.5) K/uL Lymph # (Auto) 1.06 L (1.2-3.4) K/uL [place] # (Auto) 0.52 (0.11-0.59) K/uL Eos # (Auto) 0.15 (0-0.5) K/uL Baso # (Auto) 0.02 (0-0.2) K/uL PT 10.5 (9.0-12.0) Seconds INR 1.0 (0.9-1.1) APTT 25.6 (21.0-31.0) Seconds PTT Ratio 0.9 Sodium 142 (136-145) mmol/L Potassium 3.8 (3.5-5.1) mmol/L Chloride 105 (98-107) mmol/L Carbon Dioxide 30 (21-32) mmol/L Anion Gap 7.0 (3-11) BUN 21 H (7-18) mg/dl Creatinine 0.90 (0.6-1.4) mg/dl Est Cr Clr Drug Dosing 40.1 ml/min Est GFR ( Amer) 92.5 Est GFR (Non-Af Amer) 79.8 BUN/Creatinine Ratio 23.2 H (10-20) Glucose 110 H (70-99) mg/dl Calcium 8.5 (8.5-10.1) mg/dl Total Bilirubin 0.6 (0.2-1) mg/dl AST 26 (15-37) U/L ALT 32 (12-78) U/L Alkaline Phosphatase 63 (45-117) U/L Troponin I < 0.015 (0-0.045) ng/ml Total Protein 7.2 (6.4-8.2) gm/dl Albumin 3.5 (3.4-5.0) gm/dl Globulin 3.7 (2.5-4.0) gm/dl Albumin/Globulin Ratio 0.9 (0.9-2) Lipase 179 (73-393) U/L Diagnostic Findings CT chest wo con CLINICAL HISTORY: possible aspiration VOMITING, SHORTNESS OF BREATH. PATIENT ON 15 L OF OXYGEN COMPARISON STUDY: May 2017 CT DOSE: 409.23 mGy.cm TECHNIQUE: CT of the thorax was performed from the thoracic inlet to the lung bases. Images are reviewed in the axial, sagittal, and coronal planes. IV contrast was not administered for this examination. A dose lowering technique was utilized adhering to the principles of ALARA. FINDINGS: Thyroid: Imaged portions of the thyroid gland are normal in appearance. Thoracic aorta: The thoracic aorta is normal in course and caliber, noting standard 3 vessel arch anatomy. Heart: The heart is borderline enlarged. There are mild coronary artery calcifications. There is no pericardial effusion. Lungs and pleural spaces: There is moderate respiratory motion artifact. There are ill-defined lingular and left lower lobe airspace opacities. There is lower lobe bronchial wall thickening with left lower lobe mucus plugging. The findings could be secondary to aspiration. There is lobular pleural thickening at the right lung base laterally, slightly increased when compared the preceding study. Mediastinum: There is a mildly enlarged 12 mm precarinal lymph node. There is fluid within the thoracic esophagus with mild distal esophageal wall thickening Lou: There is no evidence of pathologic hilar adenopathy given the limitations of a noncontrast study Axilla: There is no evidence of pathologic axillary lymphadenopathy Upper abdomen: Partially visualized upper abdominal viscera is within normal limits. Skeletal structures: There is a kyphoscoliosis. There are several thoracic compression deformities which are likely old. There are old rib deformities. 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 Moderately limited study from a technical standpoint 2. Ill-defined lingular and left lower lobe airspace opacities with bronchial wall thickening and left lower lobe mucus plugging. The findings could be secondary to aspiration. 3. Mild increase in the lobular pleural thickening at the right lung base laterally 4. 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 Mildly enlarged 12 mm precarinal lymph node 6. Fluid within the thoracic esophagus. Mild distal esophageal wall thickening. Electronically signed by: Harshal Brock M.D. 11/18/2018 3:36 PM Dictated: 11/18/181526 Transcribed: 11/18/181526 ABDOMEN AND PELVIS CT WITHOUT CONTRAST CT DOSE: HISTORY: Vomiting. TECHNIQUE: Multiaxial CT images of the abdomen and pelvis were performed without contrast. A dose lowering technique was utilized adhering to the principles of ALARA. COMPARISON STUDY: Abdomen and pelvis CT 08/23/2018. FINDINGS: Patchy bilateral lower lobe densities, left greater than right. This favors a pneumonia, possibly secondary to aspiration. No pneumoperitoneum. No pneumatosis. Old, healed right-sided rib fractures. Minimal anterior wedging at L1 is likely chronic. Fluid-filled mildly thickened distal esophagus. Stable hypodense lesions within the liver likely representing cysts. The largest in the left hepatic lobe measures 2 cm. The unenhanced spleen, adrenal glands, pancreas, and kidneys are unremarkable. No hydronephrosis. No retroperitoneal lymphadenopathy. Suboptimal evaluation for bowel pathology due to the lack of intravenous and oral contrast. This also motion artifact within the upper to mid abdomen. Moderate well-formed stool within the distal colon and rectum. This remains unchanged. Colonic diverticulosis. No definite bowel wall thickening or obstruction. Normal bladder. Fluid-filled and mildly distended stomach. IMPRESSION: 1. Patchy bilateral lower lobe densities, left greater the right. This favors a pneumonia may be secondary to aspiration. 2. Fluid-filled mildly thickened distal esophagus. 3. Fluid-filled and mildly distended stomach. However, no evidence for bowel obstruction. 4. Additional chronic findings as described above. Electronically signed by: Charbel Dillon M.D. 11/18/2018 3:45 PM Dictated: 11/18/18 1531 Transcribed: 11/18/181530 ECG Additional Comments: The study shows sinus rhythm with first-degree AV block at 94 bpm, IN = 282, QRS = 72, QTc = 435. Premature supraventricular complexes now present, no acute ischemic changes Code Status & VTE Plan Code Status DNR/DNI per discussion with sister Comfort measures only per discussion with sister VTE Prophylaxis Plan VTE Prophylaxis will be ordered: No PG Care Time/CCT Total # of Minutes Spent Total Time Spent with Patient: Total time spent is greater than 50% in coordination of care (as documented) at patient's floor/unit and/or counseling patient: (1) Aspiration into airway Encounter type: initial encounter Qualified Code(s): T17.908A - Unspecified foreign body in respiratory tract, part unspecified causing other injury, initial encounter (2) Nausea & vomiting Vomiting Intractability: unspecified Vomiting type: unspecified Qualified Code(s): R11.2 - Nausea with vomiting, unspecified (3) Respiratory failure Chronicity: acute Respiratory failure complication: hypoxia Qualified Code(s): J96.01 - Acute respiratory failure with hypoxia (4) GI (gastrointestinal bleed) GI bleed type/associated pathology: unspecified gastrointestinal hemorrhage type Qualified Code(s): K92.2 - Gastrointestinal hemorrhage, unspecified
[2018-11-18] MEDS: LORazepam 1 MG/2 ML VIAL IV PRN ×2 (21:35→22:34)
[2018-11-18] MEDS: MoRPHine SULFATE 2 MG/ML CARP IV PRN (23:25)
[2018-11-18] MEDS: ATROPINE SULFATE 1% OP SOLN 5 ML BTL SL PRN (23:25)
[2018-11-19] MEDS: LORazepam 1 MG/2 ML VIAL IV PRN (00:36)
[2018-11-19] MEDS ORDERED: INFLUENZA VACCINE HIGH DOSE 65+ 0.5 ML SYR IM ONE (01:00)
[2018-11-19] MEDS ORDERED: INFLUENZA ADMINISTRATION CHARGE ONE (01:00)
[2018-11-19] MEDS ORDERED: FINASTERIDE 5 MG TAB PO SCH (09:00)
[2018-11-19] MEDS: MoRPHine SULFATE 2 MG/ML CARP IV PRN ×2 (10:07→12:52)
--- NOTE | 2018-11-19 10:52 | Palliative Care Consultation ---
Date of Consultation November 19, 2018 Assessment & Plan (1) Palliative care encounter: This is an 83-year-old male who is known to the Palliative Care service who has a poor baseline and is wheelchair bound at baseline. He presented to the ED late last evening with respiratory distress post an anticipated aspiration event. The patient has considerably end stage chronic respiratory failure. A lengthy conversation was held with the patients sister, Shabnam Steele and the decision was made to transition him to full comfort measures. She confirmed that he is to remain a DNR/DNI. The patient was admitted for comfort measures only. Comfort medications were started, including Morphine, Atropine, and Ativan. Palliative Care was consulted to discuss goals of care and provide symptom management. -I met with the patient in room 259. The patient was fully obtunded and non responsive. -A caregiver Channing was at the bedside. She has been his caregiver for the past 7 years. -She stated that he has really declined over the past few weeks. -We discussed end of life anticipation and symptom management, all questions answered. -I called the patients sister, who lives out of town and left a VM. -Patient requiring infrequent dosing of comfort medications. -Patient was on Oxymask. discussed transitioning to nasal canula as his nose bridge appeared irritated by the Oxymask and could eventually cause skin breakdown since his nose bridge was so fragile. -Some mottling starting on knees. -Mouth fixed open, eyes closed. -Anticipate hours to a day or two for life expectancy. -Pt not stable for transfer out of the hospital and is not a GIP candidate. -Palliative care will continue to provide symptom management and support to family/caregivers. -PPS: 10% (2) Respiratory failure: Chronicity: acute Respiratory failure complication: hypoxia Qualified Code(s): J96.01 - Acute respiratory failure with hypoxia (3) Aspiration into airway: Encounter type: initial encounter Qualified Code(s): T17.908A - Unspecified foreign body in respiratory tract, part unspecified causing other injury, initial encounter (4) CAD (coronary artery disease): Supervising Physician Co-Signing Physician Notes Chart reviewed, patient seen and examined-no family or guard driver at bedside. PE: Patient unresponsive to voice or touch Respirations: Labored, agonal at times, on O2 at 10 L via oxygen mask CV: Tachycardic Abdomen: Not distended Extremities: Feet warm to touch, some early mottling on knees Neuro: Unresponsive to voice or touch Agree with above note, assessment and plan as per SILVIA Shabazz-will continue to keep patient comfortable as he approaches end of life. History of Present Illness Reason for Consultation: goals of care Requesting Physician: Dr. Herman Attending Physician: Emily Herman MD History of Present Illness This is an 83-year-old male who is known to the Palliative Care service who has a poor baseline and is wheelchair bound at baseline. He presented to the ED late last evening with respiratory distress post an anticipated aspiration event. The patient has considerably end stage chronic respiratory failure. A lengthy conversation was held with the patients sister, Shabnam Steele and the decision was made to transition him to full comfort measures. She confirmed that he is to remain a DNR/DNI. The patient was admitted for comfort measures only. Comfort medications were started, including Morphine, Atropine, and Ativan. Palliative Care was consulted to discuss goals of care and provide symptom management. Thank you kindly for involving the palliative care team with this patient. Allergies Allergy/AdvReac Type Severity Reaction Status Date / Time amoxicillin [From Augmentin] Allergy Intermediate Rash Verified 11/18/18 15:18 clavulanic acid Allergy Intermediate Rash Verified 11/18/18 15:18 [From Augmentin] Home Medications Home Medications Medication Instructions Recorded Confirmed Type magnesium hydroxide [Milk of 1 dose PO 3XWK 01/03/18 11/18/18 History Magnesia] metronidazole 1 applic TOPICAL DAILY PRN 01/03/18 11/18/18 History acetaminophen 325 mg capsule 650 mg PO Q4H PRN cap 07/26/18 11/18/18 History carbamide peroxide 6.5 % ear drops 5 drp OTB BID ml 07/26/18 11/18/18 History clotrimazole 1 % topical cream 1 applic TOPICAL DIRECTED PRN 07/26/18 11/18/18 History loperamide 2 mg capsule 2 - 4 mg PO UD PRN MDD 16mg 07/26/18 11/18/18 History ondansetron HCl [Zofran] 4 mg PO DAILY PRN #6 tab 08/23/18 11/18/18 Rx pantoprazole 40 mg PO BID #60 tab 08/26/18 11/18/18 Rx ketoconazole 2 % shampoo 1 applic TOPICAL 3XWK #120 ml 11/17/18 11/18/18 Rx alum-mag hydroxide-simeth 30 ml PO Q4H PRN 11/18/18 11/18/18 History [Antacid-Simethicone] calamine phenolated 1 applic TOPICAL BID PRN 11/18/18 11/18/18 History dextromethorphan-guaifenesin 5 ml PO Q6H PRN 11/18/18 11/18/18 History [Robitussin Cough-Chest Jhonny DM] diazepam 4 mg PO TID 11/18/18 11/18/18 History docusate sodium [Colace] 100 mg PO WK 11/18/18 11/18/18 History finasteride [Proscar] 5 mg PO QAM 11/18/18 11/18/18 History nystatin [Nystop] 1 applic TOPICAL BID 11/18/18 11/18/18 History polyethylene glycol 3350 [Miralax] 17 g PO Q3D PRN 11/18/18 11/18/18 History triamcinolone acetonide 1 applic TOPICAL DAILY PRN 11/18/18 11/18/18 History Patient History Medical History Mitral regurgitation CVA (cerebral vascular accident) CAD (coronary artery disease) GI (gastrointestinal bleed) (Acute) DVT (deep venous thrombosis) (Acute) BPH (benign prostatic hyperplasia) (Chronic) Seizure (Chronic) Aspiration pneumonia Declining functional status Surgical History History of cataract surgery History of hernia repair Family History Sister Osteoporosis Breast cancer Other Diabetes Hypertension Social History Preferred Language: Swiss Communication Ability: Unable Beliefs That Will Affect Care: None marital status: Single Current Living Situation: Other Current Living Situation Comment: [facility] current occupational status: disabled Feels Safe at Home: Yes Safety Concerns: Feels Safe At This Time Smoking Status: Never smoker Hx Alcohol Use: No Hx Substance Use: No Review of Systems Review of Systems: Unobtainable due to reduced consciousness Physical Exam Constitutional: + ill appearing, + thin, + cachectic and comfortable Respiratory: normal respiratory effort, lungs clear to auscultation Cardiovascular: RRR, no murmur, no edema Gastrointestinal (Abdomen): normal bowel sounds, soft, nontender, no hepatosplenomegaly Skin: + mottling Psychiatric: Orientation: + not alert Genitourinary: little to no urine output PG Care Time/CCT Total # of Minutes Spent Total Time Spent with Patient: Total time spent is greater than 50% in coordination of care (as documented) at patient's floor/unit and/or counseling patient: 50 Time Spent Midlevel Total time spent 50 minutes with > 50% of that time spent assessing the patient, discussing goals of care with the caregiver and IDT
--- NOTE | 2018-11-19 23:09 | Hospitalist Progress Note ---
Date of Service November 19, 2018 Assessment & Plan (1) Aspiration into airway: 83-year-old male with multiple medical problems, poor functional baselinewheelchair-bound and nonverbal presenting with acute hypoxic respiratory failure after an aspiration event. Patient with rapid decline in respiratory status while in the ER requiring BiPAP support, subsequent vomiting with additional aspiration. Admitting physician had a lengthy discussion with patient's sister, Shabnam Steele ([phone]). She reports that her brother has had functional limitations since , possible cerebral palsy. He currently resides in a nursing home. Quite limited at baseline. She recently signed the paperwork to make him DNR/DNI. Discussed with her the severity of her brother's illness; that he was presently in respiratory distress requiring support with BiPAP and that he was not doing well. She stated that she wishes to make him comfortable and not to pursue any additional testing or procedures. She is aware that her brother will most likely pass away from his current illness. Again, she reaffirmed that she wishes him to be DNR/DNI/comfort measures only. Aspiration pneumonia/pneumonitis due to inhalation vomit with subsequent acute hypoxic respiratory failure. Pt continues to be obtunded, with hypotension, anuria Prognosis very poor -continue comfort measures only -Comfort measures to include Ativan as needed for anxiety, morphine as needed for pain or air hunger, atropine as needed for secretions, Zofran as needed for nausea or vomiting -Supplemental oxygen as needed for comfort. No additional BiPAP -Palliative care consultation appreciated (2) Nausea & vomiting: (3) Hypoxia: (4) Respiratory failure: (5) CAD (coronary artery disease): Subjective Pt is obtunded, not able to provide history. RN reports giving morphine today for signs of respiratory distress. He has not made any urine in his [place] all day long Review of Systems Review of Systems: Unobtainable due to reduced consciousness Physical Exam Constitutional: no acute distress Respiratory: + tachypneic Auscultation: + rhonchi (bilat, all lung stafford); no wheezes Cardiovascular: Rate/Rhythm: regular rhythm and + tachycardic Heart Sounds: no murmur Extremities: no edema Gastrointestinal (Abdomen): Percussion/Palpation: abdomen soft Musculoskeletal: Extremities: extremities normal to inspection Skin: no rashes Neurologic: + obtunded Genitourinary: Meza in place with no urine output PG Care Time/CCT Total # of Minutes Spent Total Time Spent with Patient: Total time spent is greater than 50% in coordination of care (as documented) at patient's floor/unit and/or counseling patient: (1) Aspiration into airway Encounter type: initial encounter Qualified Code(s): T17.908A - Unspecified foreign body in respiratory tract, part unspecified causing other injury, initial encounter (2) Respiratory failure Chronicity: acute Respiratory failure complication: hypoxia Qualified Code(s): J96.01 - Acute respiratory failure with hypoxia (3) Nausea & vomiting Vomiting Intractability: unspecified Vomiting type: unspecified Qualified Code(s): R11.2 - Nausea with vomiting, unspecified
[2018-11-20] MEDS: MoRPHine SULFATE 2 MG/ML CARP IV PRN ×2 (05:17→14:43)
[2018-11-20] MEDS: ATROPINE SULFATE 1% OP SOLN 5 ML BTL SL PRN (14:44)
--- NOTE | 2018-11-20 19:16 | Hospitalist Progress Note ---
Date of Service November 20, 2018 Assessment & Plan (1) Aspiration into airway: 83-year-old male with multiple medical problems, poor functional baselinewheelchair-bound and nonverbal presenting with acute hypoxic respiratory failure after an aspiration event. Patient with rapid decline in respiratory status while in the ER requiring BiPAP support, subsequent vomiting with additional aspiration. Admitting physician had a lengthy discussion with patient's sister, Shabnam Steele ([phone]). She reports that her brother has had functional limitations since , possible cerebral palsy. He currently resides in a prison. Quite limited at baseline. She recently signed the paperwork to make him DNR/DNI. Discussed with her the severity of her brother's illness; that he was presently in respiratory distress requiring support with BiPAP and that he was not doing well. She stated that she wishes to make him comfortable and not to pursue any additional testing or procedures. She is aware that her brother will most likely pass away from his current illness. Again, she reaffirmed that she wishes him to be DNR/DNI/comfort measures only. Aspiration pneumonia/pneumonitis due to inhalation vomit with subsequent acute hypoxic respiratory failure. Pt continues to be obtunded, with hypotension, anuria Prognosis very poor -continue comfort measures only -Comfort measures to include Ativan as needed for anxiety, morphine as needed for pain or air hunger, atropine as needed for secretions, Zofran as needed for nausea or vomiting -Supplemental oxygen as needed for comfort. No additional BiPAP -Palliative care consultation appreciated (2) Nausea & vomiting: (3) Hypoxia: (4) Respiratory failure: (5) CAD (coronary artery disease): Subjective obtunded, having some gurgling and periods of apnea Review of Systems Review of Systems: Unobtainable due to reduced consciousness Physical Exam Constitutional: no acute distress Respiratory: + tachypneic Auscultation: + rhonchi (bilat, all lung stafford); no wheezes Cardiovascular: Rate/Rhythm: regular rhythm and + tachycardic Heart Sounds: no murmur Extremities: no edema Gastrointestinal (Abdomen): Percussion/Palpation: abdomen soft Musculoskeletal: Extremities: extremities normal to inspection Skin: no rashes Neurologic: + obtunded PG Care Time/CCT Total # of Minutes Spent Total Time Spent with Patient: Total time spent is greater than 50% in coordination of care (as documented) at patient's floor/unit and/or counseling patient: (1) Aspiration into airway Encounter type: initial encounter Qualified Code(s): T17.908A - Unspecified foreign body in respiratory tract, part unspecified causing other injury, initial encounter (2) Nausea & vomiting Vomiting Intractability: unspecified Vomiting type: unspecified Qualified Code(s): R11.2 - Nausea with vomiting, unspecified (3) Respiratory failure Chronicity: acute Respiratory failure complication: hypoxia Qualified Code( s): J96.01 - Acute respiratory failure with hypoxia
--- NOTE | 2018-11-21 15:14 | Hospitalist Progress Note ---
Date of Service November 21, 2018 Assessment & Plan (1) Comfort measures only status: (2) Aspiration into airway: 83-year-old male with multiple medical problems, poor functional baselinewheelchair-bound and nonverbal presenting with acute hypoxic respiratory failure after an aspiration event. Patient with rapid decline in respiratory status while in the ER requiring BiPAP support, subsequent vomiting with additional aspiration. Admitting physician had a lengthy discussion with patient's sister, Shabnam Steele ([phone]). She reports that her brother has had functional limitations since , possible cerebral palsy. He currently resides in a residential. Quite limited at baseline. She recently signed the paperwork to make him DNR/DNI. Discussed with her the severity of her brother's illness; that he was presently in respiratory distress requiring support with BiPAP and that he was not doing well. She stated that she wishes to make him comfortable and not to pursue any additional testing or procedures. She is aware that her brother will most likely pass away from his current illness. Again, she reaffirmed that she wishes him to be DNR/DNI/comfort measures only. Aspiration pneumonia/pneumonitis due to inhalation vomit with subsequent acute hypoxic respiratory failure. Pt continues to be obtunded, with hypotension, oliguria Prognosis very poor -continue comfort measures only -Comfort measures to include Ativan as needed for anxiety, morphine as needed for pain or air hunger, atropine as needed for secretions, Zofran as needed for nausea or vomiting -Supplemental oxygen as needed for comfort. No additional BiPAP -Palliative care consultation appreciated (3) Nausea & vomiting: (4) Hypoxia: (5) Respiratory failure: (6) CAD (coronary artery disease): Subjective Obtunded. RN has not had to give any meds today Review of Systems Review of Systems: Unobtainable due to reduced consciousness Physical Exam Constitutional: no acute distress Respiratory: no labored breathing and not tachypneic Auscultation: no rhonchi and no wheezes Cardiovascular: Rate/Rhythm: regular rhythm and + tachycardic Heart Sounds: no murmur Extremities: no edema Gastrointestinal (Abdomen): Percussion/Palpation: abdomen soft Musculoskeletal: Extremities: extremities normal to inspection Skin: no rashes Neurologic: + obtunded PG Care Time/CCT Total # of Minutes Spent Total Time Spent with Patient: Total time spent is greater than 50% in coordination of care (as documented) at patient's floor/unit and/or counseling patient: (1) Aspiration into airway Encounter type: initial encounter Qualified Code(s): T17.908A - Unspecified foreign body in respiratory tract, part unspecified causing other injury, initial encounter (2) Nausea & vomiting Vomiting Intractability: unspecified Vomiting type: unspecified Qualified Code(s): R11.2 - Nausea with vomiting, unspecified (3) Respiratory failure Chronicity: acute Respiratory failure complication: hypoxia Qualified Code(s): J96.01 - Acute respiratory failure with hypoxia
[2018-11-21] MEDS: MoRPHine SULFATE 2 MG/ML CARP IV PRN ×2 (17:28→20:19)
[2018-11-21] MEDS: LORazepam 1 MG/2 ML VIAL IV PRN (21:38)
--- NOTE | 2018-11-22 00:18 | Death Summary ---
Date of Service November 22, 2018 Pronouncement Note Date and Time of Date of : 11/21/18 Time of : 22:26 PCOD Preliminary cause of : Aspiration pneumonia Contributing Factors (1) Comfort measures only status: (2) Aspiration into airway: (3) Nausea & vomiting: (4) Hypoxia: (5) Respiratory failure: (6) CAD (coronary artery disease): Summary Additional details: 83-year-old male with multiple medical problems, poor functional baselinewheelchair-bound and nonverbal presenting with acute hypoxic respiratory failure after an aspiration event. Patient with rapid decline in respiratory status while in the ER requiring BiPAP support, subsequent vomiting with additional aspiration. Admitting physician had a lengthy discussion with patient's sister, Shabnam Steele ([phone]). She reports that her brother has had functional limitations since , possible cerebral palsy. He currently resides in a intermediate. Quite limited at baseline. She recently signed the paperwork to make him DNR/DNI. Discussed with her the severity of her brother's illness; that he was presently in respiratory distress requiring support with BiPAP and that he was not doing well. She stated that she wishes to make him comfortable and not to pursue any additional testing or procedures. She was aware that her brother will most likely pass away from his current illness. Again, she reaffirmed that she wishes him to be DNR/DNI/comfort measures only. Aspiration pneumonia/pneumonitis due to inhalation vomit with subsequent acute hypoxic respiratory failure. Remained obtunded, with hypotension, oliguria Received comfort measures only - peacefully on 11/21/18 Additional Data Confirmation of : no pulse (pronouncement made by 2 RNs at nighttime), no respirations, no heart sounds and pupils fixed and dilated Family: contacted Attending physician: Emily Herman MD
== END 2018-11-21 23:48 | disposition expired | DRG 177 ==
LOC: ED 13:59 → SUATTDRO 19:50 → 2W 19:50